=== PATIENT | female | born 1940 | race Caucasian/White ===

== ENCOUNTER 2022-02-15 13:14 | Emergency (ER) | payer MEDICARE, SELFPAY ==
[2022-02-15 13:17] VITALS: BP 174/76; PULSE 57; RESP 16; TEMP 36.7; O2SAT 97; BMI 45.8
--- NOTE | 2022-02-15 14:23 | CT_ITS ---
STUDY: CT BRAIN WITHOUT CONTRAST REASON FOR EXAM: Female, 81 years old. 3 month history of headaches. RADIATION DOSAGE (If Supplied By Facility): CTDIvol = ( 47.06 ) mGy, DLP = ( 890.33 ) mGycm TECHNIQUE: Transaxial CT imaging of the brain was performed without administration of intravenous contrast material. Individualized dose optimization techniques were used for this CT. COMPARISON: No relevant priors. FINDINGS: Normal soft tissue structures. There is hyperostosis frontalis internus. There is mild cerebral atrophy with widening of the extra-axial spaces and ventricular dilatation. There are areas of decreased attenuation within the white matter tracts of the supratentorial brain, consistent with microvascular disease changes. Normal basal ganglia and thalami. Normal brainstem. There is mild cerebellar atrophy. There is no intracranial hemorrhage. There are no findings of an acute ischemic infarction. Normal visualized paranasal sinuses. CT/Brain/Head without Contrast IMPRESSION: Chronic involutional changes of the brain. Electronically Signed: Hossein Martin MD at 15:25 EDT ,
--- NOTE | 2022-02-15 14:23 | EKG12_ITS ---
Test Reason : AGUILAR Blood Pressure : / mmHG Vent. Rate : 067 BPM Atrial Rate : 067 BPM P-R Int : 166 ms QRS Dur : 096 ms QT Int : 410 ms P-R-T Axes : -08 028 051 degrees QTc Int : 433 ms Normal sinus rhythm Nonspecific T wave abnormality Abnormal ECG Confirmed by ROWENA ANNE, OLAYINKA ([id number]), purchase request editor EBONIE ISSA ([id number]) on 02/17/2022 1:02:38 PM Referred By: Confirmed By:OLAYINKA GUAMAN MD
--- NOTE | 2022-02-15 14:25 | EX.ED.DYSGE1 ---
HPI History of Present Illness Chief Complaint: Headache Detail of Chief Complaint: Headache and falls Informant: patient Onset/Context/Timing Onset: Month(s) (3 months) Current Severity: Mild Maximum Severity: Moderate Narrative Narrative: Patient presents with a left posterior headache that is been constant for the past 3 months. She is been taking Tylenol without improvement. She has had couple episodes of falls where she states suddenly she just falls to the ground does not remember what happened for a few seconds. She does not believe she loses consciousness. Because family was concerned she called her doctor today who recommended she come to the emergency room. [facility] Medical History Atrial fibrillation Depression Hypertension Hypothyroidism Home Medications azithromycin 250 mg tablet 250 mg PO DAILY ##4 01/21/17 [Rx Last Taken Unknown] benazepril 10 mg tablet 10 mg PO DAILY 02/15/22 [History Last Taken Unknown] levothyroxine 150 mcg tablet 150 mcg PO DAILY 02/15/22 [History Last Taken Unknown] trazodone 50 mg tablet mg 02/15/22 [History Last Taken Unknown] warfarin 4 mg tablet mg 02/15/22 [History Last Taken Unknown] Allergy/AdvReac Type Severity Reaction Status Date / Time No Known Allergies Allergy Verified 01/21/17 22:33 Surgical History History of appendectomy History of cholecystectomy Social History Smoking Status: Never smoker ROS ROS ED Constitutional Constitutional ED: Denies chills or fever(s) Eyes Eyes: Denies change in vision or discharge from eye(s) ENT ENT ED: Denies discharge from eye(s), rhinorrhea or sore throat Cardiovascular Cardiovascular: Denies chest pain or palpitations Respiratory/Chest Respiratory/Chest: Denies cough or dyspnea Gastrointestinal Gastrointestinal: Denies abdominal pain, diarrhea, nausea or vomiting Genitourinary Genitourinary ED: Denies difficulty urinating or dysuria Musculoskeletal Musculoskeletal: Denies back pain or extremity pain Integumentary Denies Abrasions or rash Neurologic Neurologic: Reports headache(s); Denies weakness Psychiatric Psychiatric: Denies anxiety or depression Allergic/Immunologic Allergic/Immunologic ED: Denies lip swelling or urticaria EXAM Physical Exam Const Vital Signs: 02/15/22 13:17 Temperature 98.0 F Temperature Source Temporal Pulse Rate 57 L Respiratory Rate 16 Blood Pressure 174/76 H Blood Pressure Mean 108 Pulse Ox 97 Oxygen Delivery Method Room Air Positive well nourished and well developed General Appearance ED: well developed HEENT Reports normocephalic and head/scalp atraumatic Eyes PERRL and EOMs intact bilaterally Neck supple Chest Wall inspection of chest normal and palpation of chest normal Resp normal respiratory effort and clear to auscultation bilaterally Cardio regular rate and regular rhythm GI normal to inspection, nondistended, normoactive bowel sounds Palpation: soft Extremity normal to inspection Neuro oriented x3 and no sensory deficits noted Sensorium / Orientation: alert Motor Exam: strength 5/5 throughout Psych mental status grossly normal Skin no rashes or lesions noted MDM MDM MDM Narrative Medical decision making narrative: EKG and lab work obtained. Patient sent for CT scan of the head. Lab Data Attestation: I reviewed the patient's lab results. Labs: Laboratory Results - last 24 hr 02/15/22 02/15/22 02/15/22 14:35 14:35 14:35 WBC 6.9 RBC 4.47 Hgb 13.2 Hct 40.8 MCV 91.3 MCH 29.5 MCHC 32.4 RDW Std Deviation 46.2 H RDW Coeff of Henry 13.8 Plt Count 186 MPV 10.0 Immature Gran % (Auto) 0.100 Neut % (Auto) 50.8 Lymph % (Auto) 34.3 [place] % (Auto) 9.9 Eos % (Auto) 4.0 Baso % (Auto) 0.9 Absolute Neuts (auto) 3.5 Absolute Lymphs (auto) 2.38 Nucleated RBC % 0 PT 26.8 H INR 2.5 Sodium 143 Potassium 3.8 Chloride 109 H Carbon Dioxide 31.0 Anion Gap 3 L BUN 22 H Creatinine 0.76 Estim Creat Clear Calc 38.10 Est GFR (MDRD) Af Amer 94 Est GFR (MDRD) Non-Af 78 BUN/Creatinine Ratio 29.0 H Glucose 117 H Calcium 9.0 Radiography Diagnostic Testing: Clinical Impression(s) from Imaging Studies Brain CT 02/15/22 14:23 IMPRESSION: Chronic involutional changes of the brain. Electronically Signed: Hossein Martin MD at 15:25 EDT , EKG Initial EKG: Attestation: I personally reviewed and interpreted this EKG as follows: Interpretation: Sinus Rhythm (Sinus at 67 with no acute ischemia.) Treatment and Re-Evaluation Narrative: Lab work is unremarkable. INR is therapeutic at 2.5. CT scan of the head reveals chronic changes only. After CT reading is obtained patient is given a small dose of Toradol, Reglan, Benadryl. On reeval patient does report her symptoms are significantly improved Family is present with her at bedside. She will be discharged to home with follow-up. Return instructions were provided. Discharge Plan Triage Chief Complaint: Headache ED Provider: Idalia Mccann Dx/Rx/DC Orders Clinical Impression: Headache, Falls Instructions: ED Fall with Uncertain Cause, ED Headache Unspecified Prescriptions: No Action azithromycin 250 MG tablet 250 mg PO DAILY Qty: 4 0RF trazodone 50 mg tablet Label Comments: TAKE 1 TABLET BY MOUTH EVERYDAY AT BEDTIME warfarin 4 mg tablet levothyroxine 150 mcg tablet 150 mcg PO DAILY Label Comments: TAKE 1 TABLET BY MOUTH ONCE DAILY. TAKE ON EMPTY STOMACH. FOR THYROID. benazepril 10 mg tablet 10 mg PO DAILY Label Comments: TAKE 1 TABLET BY MOUTH EVERY DAY Primary Care Provider: Cory Santacruz Referrals: Alyce Myers MD [Med Staff - Active Staff] - Cory Santacruz MD [Primary Care Provider] - As soon as possible Disposition Disposition: Home, Self Care
[2022-02-15 14:43] LABS: Absolute Lymphocyte Count 2.38 X10^3/uL (0.83-4.51); Absolute Neutrophil Count 3.5 X10^3/uL (2.0-7.7); Basophil# 0.06 X10^3/uL; Basophil% 0.9 % (0-1); Eosinophil# 0.28 X10^3/uL; Hematocrit 40.8 % (37-47); Hemoglobin 13.2 g/dL (12.0-15.0); Lymphocyte # 2.38 X10^3/ul (0.83-4.51); Lymphocyte % 34.3 % (19-41); Mean Corp Hgb Conc 32.4 g/dL (32-36); Mean Corpuscular Hgb 29.5 pg (27.0-32.0); Mean Corpuscular Volume 91.3 fL (81-99); Monocyte# 0.69 X10^3/uL; Monocyte% 9.9 % (0-10); NRBC Flagged by Analyzer 0 % (0-5); Neutrophil # 3.52 X10^3/uL (2.7-7.7); Neutrophil % 50.8 % (47-70); Platelet Count 186 K/mm3 (150-450); RBC Distribution Width CV 13.8 % (11.6-14.6); RBC Distribution Width SD 46.2 fl (35.1-43.9); Red Blood Count 4.47 M/mm3 (4.2-5.4); White Blood Count 6.9 K/mm3 (4.4-11.0)
[2022-02-15 14:50] LABS: International Normalized Ratio 2.5; Prothrombin Time (Protime)PT. 26.8 SECONDS (11.7-14.9)
[2022-02-15 14:53] LABS: Anion Gap 3 (5-15); BUN 22 mg/dL (7-18); Chloride 109 mmol/L (98-107); Creatinine, Serum 0.76 mg/dL (0.55-1.02); EST Glomerular Filtration Rate 78 mL/min (>60); Est Glom Filt Rate - Afr Amer 94 mL/min (>60); Glucose 117 mg/dL (74-106); Potassium 3.8 mmol/L (3.5-5.1); Sodium Level 143 mmol/L (136-145)
[2022-02-15] MEDS: Metoclopramide 10 MG/2 ML Vial 5 MG IV (15:26)
[2022-02-15] MEDS: DiphenhydrAMINE 50 MG/ML Syringe 12.5 MG IV (15:27)
[2022-02-15] MEDS: Ketorolac 15 MG/ML Vial IV (15:27)
[2022-02-15 16:43] VITALS: BP 154/58; PULSE 60; RESP 18; O2SAT 100
== END 2022-02-15 16:52 | disposition home or self-care (01) ==
PROVIDERS: Emergency Provider Emergency Medicine; PCP Family Medicine; Visit Provider Emergency Medicine
DX: R51.9 Headache, unspecified (principal); I48.91 Unspecified atrial fibrillation; I10 Essential (primary) hypertension; R29.6 Repeated falls; Z79.01 Long term (current) use of anticoagulants
CPT/HCPCS: 70450; 80048; 85025; 85610; 93005; 96374; 96375; 99283; A4216

== ENCOUNTER 2022-05-18 09:25 | Inpatient (IN) | payer MEDICARE, SELFPAY ==
[2022-05-18] VITALS (16 sets, daily range): BP systolic 99–155; BP diastolic 64–127; PULSE 85–158; RESP 18–30; TEMP 36.6–37.8; O2SAT 90–95; BMI 45.8; BMI 43.9
--- NOTE | 2022-05-18 09:31 | EKG12_ITS ---
Test Reason : SOB Blood Pressure : / mmHG Vent. Rate : 146 BPM Atrial Rate : 000 BPM P-R Int : 000 ms QRS Dur : 096 ms QT Int : 272 ms P-R-T Axes : 000 035 243 degrees QTc Int : 423 ms Atrial fibrillation with rapid ventricular response with premature ventricular or aberrantly conducte d complexes Nonspecific ST and T wave abnormality Abnormal ECG Confirmed by RAZA ANNE, EDEN ([id number]), videotape editor EBONIE ISSA ([id number]) on 05/23/2022 12:16:27 PM Referred By: Confirmed By:EDEN PERSON MD
--- NOTE | 2022-05-18 09:37 | ED.VIS.DYS ---
HPI History of Present Illness Chief Complaint: Shortness of Breath Detail of Chief Complaint: Diagnosed with COVID May 09, complain of increased shortness of Informant: patient and EMS Onset/Context/Timing Onset: Days Context: gradual Timing: Continuous and Waxes and wanes Quality: Positive for Dyspnea on exertion and Orthopnea (Patient has slept in a lazy boy for 3 years); Negative for PND or Wheezing Current Severity: Mild Maximum Severity: Moderate Worsened by: Exertion and Lying flat Relieved by: Nothing Associated Symptoms cough; Negative for rhinorrhea, post nasal drip, ear pain, fever, sore throat, subjective, chills, sweats, clear sputum, white sputum, yellow sputum or green sputum Chest Pain: Positive for Intermittent and Sharp (Midsternal with no exacerbating, precipitating alleviating factors) Narrative PE Risk Factors: Negative for Cancer, OCP + Smoking + > 35, Prior DVT or PE, Recent immobilization, Recent surgery or Recent travel Prior similar symptoms: Yes Recent Illness/Hospitalization: Yes (COVID-19 infection) PFSH PFS Medical History (Updated 05/18/22 @ 11:[address] Jaden Humphreys MD) Atrial fibrillation COVID-19 virus infection Depression Hypertension Hypothyroidism Home Medications benazepril 10 mg tablet 10 mg PO DAILY 02/15/22 [History Last Taken 05/15/22] levothyroxine 150 mcg tablet 150 mcg PO DAILY THYROID 02/15/22 [History Last Taken 05/15/22] trazodone 50 mg tablet 50 mg PO QHS SLEEP 02/15/22 [History Last Taken 05/16/22] warfarin 4 mg tablet 4 mg PO DAILY AFIB 02/15/22 [History Last Taken 05/16/22] citalopram 20 mg tablet 20 mg PO DAILY DEPRESSION 05/18/22 [History Last Taken 05/15/22] furosemide 20 mg tablet 20 mg PO TUTHSA 05/18/22 [History Last Taken 05/04/22] metoprolol tartrate 25 mg tablet 12.5 mg PO BID AFIB 05/18/22 [History Last Taken 05/15/22] milk thistle 500 mg capsule 500 mg PO DAILY SUPPLEMENT 05/18/22 [History Last Taken 05/04/22] quercetin 500 mg capsule 500 mg PO DAILY SUPPLEMENT 05/18/22 [History Last Taken 12/28/22] Allergy/AdvReac Type Severity Reaction Status Date / Time No Known Allergies Allergy Verified 05/18/22 09:31 Surgical History History of appendectomy History of cholecystectomy Social History (Updated 05/18/22 @ 09:[address] Jaden Humphreys MD) household members: none Smoking Status: Former smoker substance use type: does not use ROS ROS ED Constitutional Constitutional ED: Denies chills, fever(s), sweats or weight loss Eyes Eyes: Denies blurry vision, change in vision or diplopia ENT ENT ED: Denies ear pain, rhinorrhea or sore throat Cardiovascular Cardiovascular: Reports chest pain and orthopnea; Denies palpitations, paroxysmal nocturnal dyspnea or racing heartbeat Respiratory/Chest Respiratory/Chest: Reports cough, dyspnea, dyspnea on exertion and orthopnea; Denies paroxysmal nocturnal dyspnea or sputum Gastrointestinal Gastrointestinal: Reports other Details: Patient denies maroon-colored stool or bright red blood per rectum. ; Denies abdominal pain, diarrhea, melena, nausea or vomiting Genitourinary Genitourinary ED: Denies dysuria, hematuria or urinary frequency Musculoskeletal Musculoskeletal: Denies arthralgias, back pain or myalgias Integumentary Denies Abrasions or rash Neurologic Neurologic: Reports weakness; Denies headache(s) or paresthesias Endocrine Endocrinology: Denies cold intolerance or heat intolerance Hematologic/Lymphatic Hematologic/Lymphatic: Reports easy bruising; Denies easy bleeding or lymphadenopathy EXAM Physical Exam Const Vital Signs: 05/18/22 09:26 05/18/22 09:30 05/18/22 09:30 Temperature 99.7 F H 99.7 F H Temperature Source Oral Oral Pulse Rate 146 H 158 H Respiratory Rate 24 H 24 H Respiratory Effort Respiratory Pattern Blood Pressure 155/127 H 155/127 H Blood Pressure Mean 136 136 Pulse Ox 94 95 Oxygen Delivery Method Room Air Room Air 05/18/22 09:35 05/18/22 09:49 05/18/22 09:57 Temperature Temperature Source Pulse Rate 155 H Respiratory Rate 30 H Respiratory Effort Short of Breath Respiratory Pattern Tachypnea Blood Pressure 132/82 H 122/79 H Blood Pressure Mean 98 93 Pulse Ox 94 Oxygen Delivery Method Room Air Room Air 05/18/22 10:30 05/18/22 11:00 Temperature 98 F 99 F Temperature Source Temporal Oral Pulse Rate 115 H 128 H Respiratory Rate 20 H 20 H Respiratory Effort Respiratory Pattern Blood Pressure 109/80 99/76 Blood Pressure Mean 89 83 Pulse Ox 94 93 Oxygen Delivery Method Room Air Room Air Positive well nourished, well developed and obese Constitutional Narrative: Patient is slightly tachypneic. She appears ill but not toxic. General Appearance ED: well developed and pallor Nutritional Appearance: obese HEENT Reports dry mucous membranes HEENT Narrative: Ears normal. TMs normal. Nares patent. There is no drainage. Uvula midline. No deviation with protrusion. No erythema or exudate of the posterior pharynx. There is no dysphonia. atraumatic; Negative for tenderness Mouth ED: Yes dry mucous membranes Mouth: dry mucous membranes Eyes PERRL and EOMs intact bilaterally General Eye ED: Yes pale conjunctiva; Negative for scleral icterus Neck no lymphadenopathy, supple, no meningeal signs and no JVD Neck Narrative: Trachea is midline. There is no inspiratory expiratory stridor. Resp No normal respiratory effort and No clear to auscultation bilaterally Auscultation: rales bilateral base Cardio no murmurs Rate: tachycardic Rhythm: abnormal rhythm irregularly irregular (Monitor reveals an occasional wide-complex.) GI non-tender, non-distended and no masses Auscultation: hypoactive bowel sounds Palpation: soft Back/Spine no CVA tenderness General Back: Negative for tenderness Extremity Negative for normal to inspection Extremity Narrative: Well-healed surgical scars noted due to prior fracture. Patient does have edema of her feet and legs. This is pitting edema. Neuro oriented x3, CN's II-XII intact bilaterally and no sensory deficits noted Lizz Coma Scale: document GCS findings Spontaneous Obeys Commands Oriented 15 Sensorium / Orientation: alert Speech: speech normal Psych mental status grossly normal Skin no wounds and skin turgor normal General Skin Exam: pallor; Negative for jaundice Lesions: no lesions Rashes: no rashes Trauma: Negative for abrasion MDM MDM MDM Narrative Medical decision making narrative: Patient presents with dyspnea. Initial thought was dyspnea due to COVID versus COVID-pneumonia and need to consider PE. Patient is on Coumadin. Will assess PT/INR. Of note monitor reveals atrial fibrillation with RVR and either a variant beats or ventricular ectopic beats. This may be the cause of her dyspnea. Also need to rule out anemia since patient appears pale conjunctive is pale. EKG was obtained to assess for cardiac ischemia. Troponin was added since she complained of chest pain which is atypical however the dyspnea may be her anginal equivalent. Basic metabolic panel was obtained to assess renal function in the event that meds are needed and require dose adjustment. Since patient has hypothyroidism TSH was obtained to evaluate for exacerbation of hypothyroidism. In the differentia, one needs to consider CHF, cardiac ischemia, dyspnea due to COVID, COVID-pneumonia since there are rales this may also be dyspnea due to A. fib with RVR. Patient's last ER visit was February. Prior visit was 2016. Cardiovascular reports are 4 prior EKGs only. There are no office visits available. Since patient is chronically in A. fib and hemodynamically stable she received IV metoprolol for rate control since she is presently on metoprolol. She reports compliance with her medication. Patient's INR is subtherapeutic at 1.8. Patient was queried again regarding compliance. She states she took none of her morning meds. Because of her complaint of dyspnea with pedal edema and in my opinion cephalization even though radiologist read x-ray is negative a BNP was added. Troponin is elevated 64. Will obtain 2-hour troponin. Suspect the troponin is elevated due to A. fib RVR and heart strain versus true cardiac ischemia. A second dose of IV metoprolol was ordered since patient still has a rapid rate. At approximately 1013 nurse informing the patient is now complaining abdominal pain. Patient was reexamined. Patient has diffuse abdominal pain with guarding. Will obtain CT of the abdomen to evaluate this since patient has an elevated white count at 19.7 thousand with shift. I was informed at approximately 1041 that patient triggered sepsis alert. Since there is no identifiable source and there are many possibilities as the cause of her elevated white count at the time of this addendum 1044 blood cultures and antibiotics were not started. At 1120 urine this was reviewed and is consistent with infection. For this reason blood cultures, lactate urine culture and antibiotics were ordered. The axial view of the CAT scan was reviewed. There is a cystic lesion noted left kidney. There is evidence of renal calculi. There is no evidence of hydroureter or ureterolithiasis. There is no evidence of pneumoperitoneum. There is no obvious inflammatory changes of the colon. Awaiting formal read by radiologist, and will contact hospitalist for admission. Patient has severe sepsis with acute endorgan dysfunction. Tiki was 0.76 and is now 2.22. I was informed by nursing staff that the BNP will not be available for interpretation since the lab is having difficulty and machine is not functioning proper. Lab Data Attestation: I reviewed the patient's lab results. Lab results narrative: PT/INR subtherapeutic. White count is elevated 19.7 thousand. There is a shift with no bandemia. This could be due to COVID versus other causes. Electrolyte panels remarkable for mild hyponatremia. Patient has evidence of acute kidney injury with elevation of BUN and creatinine of 64 and 2.22 compared to prior labs. Patient does have an increased BUN to creatinine ratio which raises concern for dehydration. Also need to consider GI bleed. Patient's hemoglobin is normal suspect this is due to dehydration. TSH is elevated 8.29. She probably will need her levothyroxine dose increased. Glucose is elevated to 16 with a normal CO2 and anion gap. Review of prior records and meds would indicate this is new onset diabetes since she has not had anything to eat. Labs: Laboratory Results - last 24 hr 05/18/22 05/18/22 05/18/22 09:32 09:32 09:32 WBC 19.7 H RBC 4.75 Hgb 14.3 Hct 41.7 MCV 87.8 MCH 30.1 MCHC 34.3 RDW Std Deviation 44.6 H RDW Coeff of Henry 13.7 Plt Count 168 MPV 10.8 Immature Gran % (Auto) 0.500 Neut % (Auto) 85.9 H Lymph % (Auto) 5.1 L [place] % (Auto) 8.1 Eos % (Auto) 0.1 Baso % (Auto) 0.3 Absolute Neuts (auto) 17.0 H Absolute Lymphs (auto) 1.00 Nucleated RBC % 0 [address] Review May foll Microcytosis 19.7 PT 20.6 H INR 1.8 Sodium 132 L Potassium 3.5 Chloride 99 Carbon Dioxide 24.0 Anion Gap 9 BUN 64 H Creatinine 2.22 H Estim Creat Clear Calc 16.87 Est GFR (MDRD) Af Amer 27 L Est GFR (MDRD) Non-Af 23 L BUN/Creatinine Ratio 28.8 H Glucose 216 H Calcium 9.1 Troponin I High Sens 64 H TSH 8.29 H Urine Color Urine Clarity Urine pH Ur Specific [place] Urine Protein Urine Glucose (UA) Urine Ketones Urine Occult Blood Urine Nitrite Urine Bilirubin Urine Urobilinogen Ur Leukocyte Esterase Urine RBC Urine WBC Ur Squamous Epith Cells Amorphous Sediment Urine Bacteria Urine Mucus 05/18/22 10:45 WBC RBC Hgb Hct MCV MCH MCHC RDW Std Deviation RDW Coeff of Henry Plt Count MPV Immature Gran % (Auto) Neut % (Auto) Lymph % (Auto) [place] % (Auto) Eos % (Auto) Baso % (Auto) Absolute Neuts (auto) Absolute Lymphs (auto) Nucleated RBC % Diff Path Review Microcytosis PT INR Sodium Potassium Chloride Carbon Dioxide Anion Gap BUN Creatinine Estim Creat Clear Calc Est GFR (MDRD) Af Amer Est GFR (MDRD) Non-Af BUN/Creatinine Ratio Glucose Calcium Troponin I High Sens TSH Urine Color Yellow Urine Clarity Cloudy Urine pH 5.0 Ur Specific [place] 1.010 Urine Protein 100 H Urine Glucose (UA) Normal Urine Ketones Negative Urine Occult Blood 250 H Urine Nitrite Negative Urine Bilirubin Negative Urine Urobilinogen 1 H Ur Leukocyte Esterase 500 H Urine RBC 10-25 SEEN Urine WBC 25-50 SEEN Ur Squamous Epith Cells 0-5 SEEN Amorphous Sediment 2+ Urine Bacteria 4+ Urine Mucus 0 SEEN Radiography Chest X-Ray - ED: Read by ED Physician (Patient's x-ray is slightly rotated. Borderline cardiomegaly. There is cephalization. There is no curly B-lines. There is no effusion. There is no infiltrate. Osseous structures are unremarkable. This was independently reviewed and interpreted by me at 0954.) Diagnostic Testing: Clinical Impression(s) from Imaging Studies Chest X-Ray 05/18/22 09:45 IMPRESSION: No acute abnormality is seen. Electronically Signed: Hossein Martin MD at 10:02 EST , Abdomen/Pelvis CT 05/18/22 10:20 IMPRESSION: 1. 8 mm partially obstructing stone in the left proximal ureter and borderline left hydronephrosis. 2. 4 mm and 2 mm nonobstructing calculi in the left lower renal infundibula. 3. 4.8 cm hypodense cyst in the left anterior renal parenchyma protruding into the left anterior perirenal space. No follow-up is needed. 4. Mild right renal atrophy when compared to the left kidney. 5. Right periumbilical hernia containing only omental fat. Electronically Signed: Moy Joseph MD at 11:49 EST , Rhythm Strip Rhythm Strip: A-fib (Rate of 148 with wide complexes which may represent aberrant beats versus premature ventricular beats) Rate: 148 EKG Initial EKG: Interpretation: Atrial Fibrillation (Ventricular rate is 146. Cures duration is 96 ms. QT duration is 272 ms. [place] is normal. There are wide complexes which may represent premature ventricular beat versus aberrantly conducted complexes. There is an ossific ST-T wave changes which in all likelihood is rate dependent.) Prior: Changed (From February 2022. Patient was in a normal sinus rhythm.) Critical Care Time Critical Care Time: Yes Critical care time (excluding procedures): 30-74 minutes (32), Including time spent: (History, physical, documentation, review of prior records, interpretation of laboratory results and imaging and initiation of therapy for A. 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
[2022-05-18 09:40] LABS: Basophil# 0.05 X10^3/uL; Basophil% 0.3 % (0-1); Eosinophil# 0.02 X10^3/uL; Eosinophils% 0.1 % (0-5); Hematocrit 41.7 % (37-47); Hemoglobin 14.3 g/dL (12.0-15.0); Lymphocyte % 5.1 % (19-41); Mean Corp Hgb Conc 34.3 g/dL (32-36); Mean Corpuscular Hgb 30.1 pg (27.0-32.0); Mean Corpuscular Volume 87.8 fL (81-99); Mean Platelet Vol. 10.8 fl (6.2-12.0); Monocyte# 1.59 X10^3/uL; Monocyte% 8.1 % (0-10); NRBC Flagged by Analyzer 0 % (0-5); Neutrophil # 16.95 X10^3/uL (2.7-7.7); Neutrophil % 85.9 % (47-70); POSITIVE DIFFERENTIAL YES; Platelet Count 168 K/mm3 (150-450); RBC Distribution Width CV 13.7 % (11.6-14.6); RBC Distribution Width SD 44.6 fl (35.1-43.9); Red Blood Count 4.75 M/mm3 (4.2-5.4); White Blood Count 19.7 K/mm3 (4.4-11.0)
--- NOTE | 2022-05-18 09:45 | RAD_ITS ---
STUDY: X-RAY CHEST REASON FOR EXAM: Female, 82 years old. Dyspnea Covid 10 days ago TECHNIQUE: PA and lateral views of the chest. COMPARISON: None. FINDINGS: The lungs are clear and expanded. There is no demonstrated pleural abnormality. Borderline cardiomegaly. Normal mediastinum and allie. Normal visualized pulmonary arteries. There is atherosclerotic tortuosity of the aortic arch and descending thoracic aorta. Normal visualized thoracic spine. Normal visualized ribs, clavicles, and shoulders. There is no demonstrated abnormality of the visualized soft tissue structures of the upper abdomen. RAD/Chest PA and Lateral IMPRESSION: No acute abnormality is seen. Electronically Signed: Hossein Martin MD at 10:02 [facility] ,
[2022-05-18 09:50] LABS: International Normalized Ratio 1.8; Prothrombin Time (Protime)PT. 20.6 SECONDS (11.7-14.9)
[2022-05-18] MEDS: Metoprolol Tartrate 5 MG/5 ML Vial IV ×3 (09:53→18:57)
[2022-05-18 10:02] LABS: Differential Indicated SCAN CRITERIA MET
[2022-05-18 10:03] LABS: Anion Gap 9 (5-15); BUN 64 mg/dL (7-18); BUN/Creat Ratio 28.8 RATIO (10-20); Calcium,Total 9.1 mg/dL (8.5-10.1); Chloride 99 mmol/L (98-107); Creatinine, Serum 2.22 mg/dL (0.55-1.02); EST Glomerular Filtration Rate 23 mL/min (>60); Est Glom Filt Rate - Afr Amer 27 mL/min (>60); Estimated Creatinine Clearance 16.87 ml/min; Glucose 216 mg/dL (74-106); Microcytosis 19.7; Potassium 3.5 mmol/L (3.5-5.1); Sodium Level 132 mmol/L (136-145); Thyroid Stim Hormone (TSH) 8.29 uIU/mL (0.358-3.74); Troponin-I HS 64 pg/mL (3.0-54.0)
[2022-05-18] MEDS: Ondansetron 4 MG/2 ML Vial IV (10:13)
--- NOTE | 2022-05-18 10:20 | CT_ITS ---
EXAM: CT ABDOMEN AND PELVIS WITHOUT INTRAVENOUS CONTRAST CLINICAL INDICATION: Abdominal pain, elevated white count and acute kidney injury. TECHNIQUE: Helically acquired images were obtained of the abdomen and pelvis without intravenous contrast. This CT exam was performed using one or more of the following dose reduction techniques: automated exposure control, adjustment of the mA and/or kV according to patient size, and/or use of iterative reconstruction technique. This report was created using [employer] report generation technology. RADIATION DOSE: CTDIvol = 24.00 mGy, DLP = 1211.01 mGy-cm COMPARISON: None. FINDINGS: LOWER THORAX: Unremarkable. Lung bases are clear. No cardiomegaly. No significant pericardial effusion. ABDOMEN: LIVER: Mild diffuse fatty infiltration of the liver. Micronodularity of the liver surface is worrisome for cirrhosis. GALLBLADDER AND BILE DUCTS: Unremarkable. No calcified gallstones. No gallbladder distention or wall edema. No intra- or extrahepatic biliary ductal dilation. PANCREAS: Unremarkable. No focal cystic mass. SPLEEN: Unremarkable. Normal size without focal cystic or solid mass. ADRENALS: Unremarkable. No nodules. KIDNEYS AND URETERS: 4.8 cm hypodense cysts in the left anterior renal parenchyma protruding into the left anterior perirenal space. 8 mm partially obstructing stone in the left proximal ureter with borderline hydronephrosis. 4 mm and 2 mm nonobstructing calculi in the left lower renal infundibula. No stones or hydronephrosis in the right kidney. Mild right renal atrophy when compared to the left. STOMACH AND BOWEL: LAP-BAND surgery of the stomach. No stomach or bowel distention. No focal inflammatory change. PELVIS: APPENDIX: Normal. BLADDER: Unremarkable. REPRODUCTIVE: Unremarkable as visualized. No mass. ABDOMEN and PELVIS: INTRAPERITONEAL SPACE: Unremarkable. No ascites or other fluid collection. No free air. BONES/JOINTS: Pronounced degenerative disc space height narrowing at L1-L2, L2-L3 and L5-S1 disc space levels. Mild L4-L5 disc space height narrowing. Moderately pronounced stenosis of the bilateral L5-S1 intervertebral neural foramina. Mild old anterior wedge compression fracture of the upper T11 vertebral body. No suspicious lytic or blastic abnormality. SOFT TISSUES: Right periumbilical hernia containing only omental fat. VASCULATURE: Unremarkable. Abdominal aorta is non-dilated. LYMPH NODES: Unremarkable. No enlarged lymph nodes. CT/Abdomen/Pelvis without Cont IMPRESSION: 1. 8 mm partially obstructing stone in the left proximal ureter and borderline left hydronephrosis. 2. 4 mm and 2 mm nonobstructing calculi in the left lower renal infundibula. 3. 4.8 cm hypodense cyst in the left anterior renal parenchyma protruding into the left anterior perirenal space. No follow-up is needed. 4. Mild right renal atrophy when compared to the left kidney. 5. Right periumbilical hernia containing only omental fat. Electronically Signed: Moy Joseph MD at 11:49 EST ,
[2022-05-18] MEDS: Morphine 4 MG/ML Syringe IV (10:31)
[2022-05-18] MEDS: Enoxaparin 120 MG/0.8 ML Syringe SC (10:35)
--- NOTE | 2022-05-18 10:41 | ED.RN ---
DR LAWSON NOTIFIED OF SEPSIS ALERT. NO NEW ORDERS AT THIS TIME.
[2022-05-18 10:51] LABS: Mucous, Urine 0 SEEN /hpf (<or=2+)
[2022-05-18 10:55] LABS: Color, Urine Yellow (Yellow); Glucose, Dipstick Normal (Normal); Ketone-Dipstick Negative (Negative); Leukocyte Esterase-Dipstick 500 /ul (Negative); Nitrite-Dipstick Negative (Negative); Occult Blood-Urine 250 /ul (Negative); Protein-Dipstick 100 mg/dl (Negative); Urine Bilirubin Dipstick Negative (Negative); Urine Clarity Cloudy (Clear); Urine Urobilinogen 1 mg/dl (Normal)
[2022-05-18 11:04] LABS: Amorphous Sediment 2+; Bacteria 4+ /hpf (None Seen)
[2022-05-18 11:05] LABS: Red Blood Cells-Urine 10-25 SEEN /hpf (0-5); White Blood Cells 25-50 SEEN /hpf (0-5)
[2022-05-18 11:06] LABS: Squamous Epithelial Cells - UA 0-5 SEEN /hpf (5-10)
--- NOTE | 2022-05-18 11:34 | ED.RN ---
PHYSICIAN CALLING SEPSIS WITH REMAINING BLOOD WORK/URINE. CULTURES OBTAINED/LACTIC
--- NOTE | 2022-05-18 11:49 | NURSING ---
DR SATISH LAWSON
--- NOTE | 2022-05-18 11:56 | NURSING ---
PCU SATISH SEVERE SEPSIS WITH ENDORGAN DYSFUNCTION, UTI, AFIB RVR
--- NOTE | 2022-05-18 11:57 | HP.PCM.HOS_ITS ---
HPI - General General Date of Admission: 05/18/22 Date of Service: 05/18/22 Chief Complaint: Multiple complaints, shortness of breath progressive worsening for 1 week along with chest pain for few days, bilateral lower quadrant abdominal pain, weakness. HPI Narrative NITISH MOLINA, is a 82 F came to ED for multiple complaints. She had COVID infection, diagnosed positive on 05/09/2022. For last 10 days she complains of acute on chronic shortness of breath mainly on exertion but has progressed to shortness of breath at rest along with left sided chest pain. She has been sleeping on [place] for 3 years and has chronic shortness of breath. She describes chest pain as dull ache, constant with no change with activity, or precipitating, aggravating or relieving factor. Last 2 days he started having palpitation. He says that she also has bilateral lower quadrant pain more on the left. In ED, she was found to be in A. fib with RVR. She was tachycardic, blood pressure elevated but went down after giving IV metoprolol. CT abdomen pelvis showed left ureteric nonobstructive calculi and left renal infundibula with mild hydronephrosis. Urologist consulted. UA positive for 4+ bacteria, WBC 25?50 cells, RBC 10-25 cells LE 500, nitrite negative. Patient has leukocytosis and is started on IV ceftriaxone and admitted. Patient is positive smoking history more than 45 years. On warfarin for chronic A. fib. Patient denies cough, URI symptoms but had mild fever and headache for last 3 days. [facility] Medical History Atrial fibrillation COVID-19 virus infection Depression Hypertension Hypothyroidism Home Medications benazepril 10 mg tablet 10 mg PO DAILY 02/15/22 [History Last Taken 05/15/22] levothyroxine 150 mcg tablet 150 mcg PO DAILY THYROID 02/15/22 [History Last Taken 05/15/22] trazodone 50 mg tablet 50 mg PO QHS SLEEP 02/15/22 [History Last Taken 05/16/22] warfarin 4 mg tablet 4 mg PO DAILY AFIB 02/15/22 [History Last Taken 05/16/22] citalopram 20 mg tablet 20 mg PO DAILY DEPRESSION 05/18/22 [History Last Taken 05/15/22] furosemide 20 mg tablet 20 mg PO TUTHSA 05/18/22 [History Last Taken 05/04/22] metoprolol tartrate 25 mg tablet 12.5 mg PO BID AFIB 05/18/22 [History Last Taken 05/15/22] milk thistle 500 mg capsule 500 mg PO DAILY SUPPLEMENT 05/18/22 [History Last Taken 05/04/22] quercetin 500 mg capsule 500 mg PO DAILY SUPPLEMENT 05/18/22 [History Last Taken 05/04/22] Allergy/AdvReac Type Severity Reaction Status Date / Time No Known Allergies Allergy Verified 05/18/22 09:31 Surgical History History of appendectomy History of cholecystectomy Social History household members: none Smoking Status: Former smoker substance use type: does not use ROS ROS Narrative Constitutional: Reports fatigue and weakness. Fever as described in HPI HEENT: Denies URI symptoms. Reports systems reviewed and no addt'l complaints, except as documented Respiratory/Chest: As described in HPI Gastrointestinal: Mild nausea. Anorexia. Denies GI bleed denies coffee ground emesis, hematemesis or vomiting Genitourinary: Denies burning urination or new urinary tract symptoms Musculoskeletal: Chronic joint pain and limited range of motion. Limited mobility Neurologic: Denies seizure-like activity. No focal strokelike symptoms skin: No ulcer. No rash Endocrinology: Reports systems reviewed and no addt'l complaints, except as documented Hematologic/Lymphatic: Reports systems reviewed and no addt'l complaints, except as documented Rest 14 ROS are negative except as mentioned in HPI Vital Signs Vital Signs Vital Signs: 05/18/22 09:26 05/18/22 09:30 05/18/22 09:30 Temperature 99.7 F H 99.7 F H Temperature Source Oral Oral Pulse Rate 146 H 158 H Respiratory Rate 24 H 24 H Respiratory Effort Respiratory Pattern Blood Pressure 155/127 H 155/127 H Blood Pressure Mean 136 136 Pulse Ox 94 95 Oxygen Delivery Method Room Air Room Air 05/18/22 09:35 05/18/22 09:49 05/18/22 09:57 Temperature Temperature Source Pulse Rate 155 H Respiratory Rate 30 H Respiratory Effort Short of Breath Respiratory Pattern Tachypnea Blood Pressure 132/82 H 122/79 H Blood Pressure Mean 98 93 Pulse Ox 94 Oxygen Delivery Method Room Air Room Air 05/18/22 10:30 05/18/22 11:00 Temperature 98 F 99 F Temperature Source Temporal Oral Pulse Rate 115 H 128 H Respiratory Rate 20 H 20 H Respiratory Effort Respiratory Pattern Blood Pressure 109/80 99/76 Blood Pressure Mean 89 83 Pulse Ox 94 93 Oxygen Delivery Method Room Air Room Air Weight Weight: 267 lb 6.731 oz Body Mass Index (BMI) 45.8 Physical Exam Narrative Physical exam General: Alert, Oriented x3, Cooperative, morbid obesity BMI 45.9 kg/m? HEENT: Atraumatic, PERRLA, EOMI, Normocephalic Oral: Oral mucosa dry. No Gingival or Mucosal Lesions/ Ulcerations Neck: Supple, No JVD, Negative Carotid Bruits Lungs: Air entry diminished in bilateral lung bases. No crepitation/rhonchi. No hypoxia Cardiovascular: A. fib with RVR, Normal S1, Normal S2, No murmurs Abdomen: Fat pendulous abdomen. Soft, tenderness present over left lower quadrant. Bowel Sounds Present, nondistended : No renal angle tenderness. No suprapubic tenderness. Extremities: Mild bilateral chronic ankle edema, Capillary Refill Less than 3 Seconds Skin: No rashes, No breakdown Musculoskeletal: No Tenderness to Palpation of Joints or Extremities. ROM restricted muscle strength 4+/5 at knees and hip joints Neurological: Cranial nerves II-XII grossly intact, DTR 2+/4 and Symmetrical, Neuro grossly intact Psych/Mental Status: Flat affect. Results Lab / Micro Data Result Diagrams: 05/18/22 09:32 05/18/22 09:32 Labs: Laboratory Results - last 24 hr 05/18/22 09:32: WBC 19.7 H, RBC 4.75, Hgb 14.3, Hct 41.7, MCV 87.8, MCH 30.1, MCHC 34.3, RDW Std Deviation 44.6 H, RDW Coeff of Henry 13.7, Plt Count 168, MPV 10.8, Immature Gran % (Auto) 0.500, Neut % (Auto) 85.9 H, Lymph % (Auto) 5.1 L, [place] % (Auto) 8.1, Eos % (Auto) 0.1, Baso % (Auto) 0.3, Absolute Neuts (auto) 17.0 H, Absolute Lymphs (auto) 1.00, Nucleated RBC % 0, Diff Path Review May foll, Microcytosis 19.7 05/18/22 09:32: PT 20.6 H, INR 1.8 05/18/22 09:32: Sodium 132 L, Potassium 3.5, Chloride 99, Carbon Dioxide 24.0, Anion Gap 9, BUN 64 H, Creatinine 2.22 H, Estim Creat Clear Calc 16.87, Est GFR (MDRD) Af Amer 27 L, Est GFR (MDRD) Non-Af 23 L, BUN/Creatinine Ratio 28.8 H, Glucose 216 H, Calcium 9.1, Troponin I High Sens 64 H, TSH 8.29 H 05/18/22 10:45: Urine Color Yellow, Urine Clarity Cloudy, Urine pH 5.0, Ur Specific [place] 1.010, Urine Protein 100 H, Urine Glucose (UA) Normal, Urine Ketones Negative, Urine Occult Blood 250 H, Urine Nitrite Negative, Urine Bilirubin Negative, Urine Urobilinogen 1 H, Ur Leukocyte Esterase 500 H, Urine RBC 10-25 SEEN, Urine WBC 25-50 SEEN, Ur Squamous Epith Cells 0-5 SEEN, Amorphous Sediment 2+, Urine Bacteria 4+, Urine Mucus 0 SEEN Rhythm Strip Rhythm Strip: A-fib (Rate of 148 with wide complexes which may represent aberrant beats versus premature ventricular beats) Rate: 148 Radiology Impression Chest X-Ray 05/18/22 09:45 IMPRESSION: No acute abnormality is seen. Electronically Signed: Hossein Martin MD at 10:02 EST , Abdomen/Pelvis CT 05/18/22 10:20 IMPRESSION: 1. 8 mm partially obstructing stone in the left proximal ureter and borderline left hydronephrosis. 2. 4 mm and 2 mm nonobstructing calculi in the left lower renal infundibula. 3. 4.8 cm hypodense cyst in the left anterior renal parenchyma protruding into the left anterior perirenal space. No follow-up is needed. 4. Mild right renal atrophy when compared to the left kidney. 5. Right periumbilical hernia containing only omental fat. Electronically Signed: Moy Joseph MD at 11:49 EST , Assessment & Plan Assessment/Plan (1) Atrial fibrillation with rapid ventricular response: (2) Left ureteral calculus: PLAN: Plan This is a 82-year-old female is being admitted to PCU for mild shortness of breath, left-sided chest pain, abdominal pain with A. fib with RVR 1. UTI most likely due to left ureteric calculi and borderline hydronephrosis: Patient is being admitted to PCU. CT abdomen reviewed with the urologist Dr. Gutierrez. Patient has 8 mm partially obstructing stone in left proximal ureter with borderline left hydronephrosis. 4 mm tubular nonobstructing calculi in left lower renal infundibula. Mild right renal atrophy. Patient has leukocytosis. Patient does not look toxic but has low-grade fever 99.7 Fahrenheit.Patient is not hypotensive but blood pressure went down after giving IV metoprolol 5 mg x 2. Patient has leukocytosis but lactic acid normal. Liver chemistry pending. Overall I have very low probability for sepsis. IV fluid R jairo lactate 1 L ordered. IV ceftriaxone 1 g daily. IV fluid normal saline. Urologist consulted. Chronic A. fib with RVR: Twelve-lead EKG reviewed. 2. Paroxysmal A. fib RVR: Twelve-lead EKG in ED shows A. fib with RVR with PVCs, nonischemic ST-T changes. Heart rate 146/min. Previous EKG on 15 February 2022 shows normal sinus rhythm 67, QTc 433 ms. I think A. fib with RVR precipitated from infection/UTI. INR 1.8. Patient had therapeutic dose of Lovenox in ED. Warfarin dose increased to 5 mg daily. Troponin one-time elevated 77. Cycle troponin. 3. Recent COVID 19 infection: Patient is on intensity of COVID infection. Does not have URI symptoms.Patient not hypoxic. Mild tachypneic but respiratory rate is better. Does not qualify for treatment including steroid remdesivir or baricitinib. Chest x-ray individually reviewed does not show acute change. 4.Hypothyroidism: BNP is normal. TSH is high. Free T4 tomorrow AM. 5. Other comorbidities include hypertension, depression: Home medication reconciliation done. We will hold antihypertensive medication for now Living will/advanced directive/end of life care: Patient does DNR CC arrest and she is very clear in her thought process have living will or advanced directive. After discussion of benefits/risks procedures involved with full code, DNR CC arrest and DNR CC, the patient opted for DNRCC arrest with no intubation and she is very clear in her thought process. Patient doesn't want artificial life support including intubation, tube feed, ventilator and/chest compression, central venous catheter, vasopressor and DC shock if needed Total time spent in [id number] encounter in discussion of advanced directive 16 minutes. Laboratory Results 05/18/22 09:32: WBC 19.7 H, RBC 4.75, Hgb 14.3, Hct 41.7, MCV 87.8, MCH 30.1, MCHC 34.3, RDW Std Deviation 44.6 H, RDW Coeff of Henry 13.7, Plt Count 168, MPV 10.8, Immature Gran % (Auto) 0.500, Neut % (Auto) 85.9 H, Lymph % (Auto) 5.1 L, [place] % (Auto) 8.1, Eos % (Auto) 0.1, Baso % (Auto) 0.3, Absolute Neuts (auto) 17.0 H, Absolute Lymphs (auto) 1.00, Nucleated RBC % 0, Diff Path Review May foll, Microcytosis 19.7 05/18/22 09:32: PT 20.6 H, INR 1.8 05/18/22 09:32: Sodium 132 L, Potassium 3.5, Chloride 99, Carbon Dioxide 24.0, Anion Gap 9, BUN 64 H, Creatinine 2.22 H, Estim Creat Clear Calc 16.87, Est GFR (MDRD) Af Amer 27 L, Est GFR (MDRD) Non-Af 23 L, BUN/Creatinine Ratio 28.8 H, Glucose 216 H, Calcium 9.1, Troponin I High Sens 64 H, TSH 8.29 H 05/18/22 09:32: B-Natriuretic Peptide 69.1 05/18/22 10:45: Urine Color Yellow, Urine Clarity Cloudy, Urine pH 5.0, Ur Specific [place] 1.010, Urine Protein 100 H, Urine Glucose (UA) Normal, Urine Ketones Negative, Urine Occult Blood 250 H, Urine Nitrite Negative, Urine Bilirubin Negative, Urine Urobilinogen 1 H, Ur Leukocyte Esterase 500 H, Urine RBC 10-25 SEEN, Urine WBC 25-50 SEEN, Ur Squamous Epith Cells 0-5 SEEN, Amorphous Sediment 2+, Urine Bacteria 4+, Urine Mucus 0 SEEN 05/18/22 11:38: Troponin I High Sens 77 H 05/18/22 11:38: Lactic Acid 2.0 05/18/22 11:38: Phosphorus Pending, Magnesium Pending, Total Bilirubin Pending, Direct Bilirubin Pending, AST Pending, ALT Pending, Alkaline Phosphatase Pending, Total Protein Pending, Albumin Pending Charges/Coding Visit Charges Inpatient E&M: 94210 Init Hosp L3 Procedures Hospitalists Procedures: 42969 Advncd Care Plan 30 Min
[2022-05-18] MEDS: Ceftriaxone 1 GM/50 ML BAG IV (12:04)
[2022-05-18 12:13] LABS: Troponin-I HS 77 pg/mL (3.0-54.0)
[2022-05-18 12:28] LABS: BNP,B-Type NATRIURETIC PEPTIDE 69.1 pg/mL (0-100)
[2022-05-18] MEDS: Lactated Ringers 1,000 ML 999 ML IV (12:33)
--- NOTE | 2022-05-18 13:00 | PCM.CONS.U ---
Assessment & Plan Assessment/Plan (1) Severe sepsis with acute organ dysfunction: PLAN: Patient is being admitted for sepsis can start her on antibiotic biotics. (2) Urinary tract infection: PLAN: Urine culture is pending. (3) Left ureteral calculus: PLAN: N.p.o. at midnight plan for cystoscopy stent placement tomorrow first available time slot if her current clinical conditions worsen this may become an emergency. HPI Consult Data Date of Consult: 05/18/22 HPI Narrative Reason for Consultation: Left ureteral calculi HPI Narrative: NITISH MOLINA, is a 82 F who presents with urinary tract infection and left flank pain she had a CT scan to demonstrate obstructing stone in the proximal left ureter. The patient is being admitted to the medical service for medical management plan to make her n.p.o. at midnight, will get an EKG, and will plan for cystoscopy and left stent placement tomorrow I called the OR and asked for first available time slot for tomorrow n.p.o. at midnight. [facility] [place] Medical History Atrial fibrillation COVID-19 virus infection Depression Hypertension Hypothyroidism Home Medications benazepril 10 mg tablet 10 mg PO DAILY 02/15/22 [History Last Taken 05/15/22] levothyroxine 150 mcg tablet 150 mcg PO DAILY THYROID 02/15/22 [History Last Taken 05/15/22] trazodone 50 mg tablet 50 mg PO QHS SLEEP 02/15/22 [History Last Taken 05/16/22] warfarin 4 mg tablet 4 mg PO DAILY AFIB 02/15/22 [History Last Taken 05/16/22] citalopram 20 mg tablet 20 mg PO DAILY DEPRESSION 05/18/22 [History Last Taken 05/15/22] furosemide 20 mg tablet 20 mg PO TUTHSA 05/18/22 [History Last Taken 05/04/22] metoprolol tartrate 25 mg tablet 12.5 mg PO BID AFIB 05/18/22 [History Last Taken 05/15/22] milk thistle 500 mg capsule 500 mg PO DAILY SUPPLEMENT 05/18/22 [History Last Taken 05/04/22] quercetin 500 mg capsule 500 mg PO DAILY SUPPLEMENT 05/18/22 [History Last Taken 12/28/22] Allergy/AdvReac Type Severity Reaction Status Date / Time No Known Allergies Allergy Verified 05/18/22 09:31 Surgical History History of appendectomy History of cholecystectomy Social History household members: none Smoking Status: Former smoker substance use type: does not use ROS Constitutional Constitutional: Denies chills, fever(s) or malaise Eyes Eyes: Denies blurry vision or change in vision ENT HEENT: Reports none Cardiovascular Cardiovascular: Denies chest pain or palpitations Respiratory/Chest Respiratory/Chest: Denies cough or shortness of breath with exertion Gastrointestinal Gastrointestinal: Denies abdominal pain, constipation or diarrhea Musculoskeletal Musculoskeletal: Denies back pain, joint stiffness or joint swelling Integumentary Integumentary: Denies dry skin, jaundice, lesions or rash Neurologic Neurologic: Denies confusion, syncope or weakness Psychiatric Psychiatric: Reports none; Denies anxiety or depression Endocrine Endocrinology: Denies excessive sweating, fatigue or flushing Hematologic/Lymphatic Hematologic/Lymphatic: Denies anemia, easy bleeding or easy bruising Physical Exam Const alert and oriented x3 General Appearance: cooperative HEENT normocephalic, head/scalp atraumatic, EAC's normal and TM's normal bilaterally Eyes PERRL and EOMs intact bilaterally Pupil: sluggish Neck no lymphadenopathy, supple and no JVD General: trachea midline Lymph Lymphatic: no lymphadenopathy noted, lymphedema and lymphadenopathy Resp normal respiratory effort, normal air movement and clear to auscultation bilaterally Cardio regular rate, regular rhythm and peripheral pulses 2+ throughout GI soft to palpation, non-tender and non-distended Extremity normal capillary refill and no clubbing, cyanosis or edema General Extremity: no tenderness to palpation of joints or extremities Skin no rashes or lesions noted General Skin Exam: turgor normal Lesions: no lesions Rashes: no rashes Neuro CN's II-XII intact bilaterally Speech: speech normal Motor Exam: strength 5/5 throughout; Negative for general weakness Psych thought process normal, cooperative and affect normal Appearance: appropriate Medical Records Data Attestation: I reviewed the patient's medical records Lab / Micro Data Attestation: I reviewed the patient's lab results. Result Diagrams: 05/18/22 09:32 05/18/22 09:32 Labs: Laboratory Results - last 24 hr 05/18/22 09:32: WBC 19.7 H, RBC 4.75, Hgb 14.3, Hct 41.7, MCV 87.8, MCH 30.1, MCHC 34.3, RDW Std Deviation 44.6 H, RDW Coeff of Henry 13.7, Plt Count 168, MPV 10.8, Immature Gran % (Auto) 0.500, Neut % (Auto) 85.9 H, Lymph % (Auto) 5.1 L, [place] % (Auto) 8.1, Eos % (Auto) 0.1, Baso % (Auto) 0.3, Absolute Neuts (auto) 17.0 H, Absolute Lymphs (auto) 1.00, Nucleated RBC % 0, Diff Path Review May foll, Microcytosis 19.7 05/18/22 09:32: PT 20.6 H, INR 1.8 05/18/22 09:32: Sodium 132 L, Potassium 3.5, Chloride 99, Carbon Dioxide 24.0, Anion Gap 9, BUN 64 H, Creatinine 2.22 H, Estim Creat Clear Calc 16.87, Est GFR (MDRD) Af Amer 27 L, Est GFR (MDRD) Non-Af 23 L, BUN/Creatinine Ratio 28.8 H, Glucose 216 H, Calcium 9.1, Troponin I High Sens 64 H, TSH 8.29 H 05/18/22 09:32: B-Natriuretic Peptide 69.1 05/18/22 10:45: Urine Color Yellow, Urine Clarity Cloudy, Urine pH 5.0, Ur Specific [place] 1.010, Urine Protein 100 H, Urine Glucose (UA) Normal, Urine Ketones Negative, Urine Occult Blood 250 H, Urine Nitrite Negative, Urine Bilirubin Negative, Urine Urobilinogen 1 H, Ur Leukocyte Esterase 500 H, Urine RBC 10-25 SEEN, Urine WBC 25-50 SEEN, Ur Squamous Epith Cells 0-5 SEEN, Amorphous Sediment 2+, Urine Bacteria 4+, Urine Mucus 0 SEEN 05/18/22 11:38: Troponin I High Sens 77 H 05/18/22 11:38: Lactic Acid 2.0 Rhythm Strip Rhythm Strip: A-fib (Rate of 148 with wide complexes which may represent aberrant beats versus premature ventricular beats) Rate: 148 Radiology Impression Chest X-Ray 05/18/22 09:45 IMPRESSION: No acute abnormality is seen. Electronically Signed: Hossein Martin MD at 10:02 EST , Abdomen/Pelvis CT 05/18/22 10:20 IMPRESSION: 1. 8 mm partially obstructing stone in the left proximal ureter and borderline left hydronephrosis. 2. 4 mm and 2 mm nonobstructing calculi in the left lower renal infundibula. 3. 4.8 cm hypodense cyst in the left anterior renal parenchyma protruding into the left anterior perirenal space. No follow-up is needed. 4. Mild right renal atrophy when compared to the left kidney. 5. Right periumbilical hernia containing only omental fat. Electronically Signed: Moy Joseph MD at 11:49 EST ,
--- NOTE | 2022-05-18 13:34 | ECHOCS_ITS ---
Reason For Study: AFIB/FLUTTER Procedure This was a 2D Doppler, Color Flow transthoracic echocardiogram. The study was technically difficult. Due to body habitus and arrhythmia. Exam performed portable in patient room. Left Ventricle Normal LV size. Moderate concentric left ventricular hypertrophy. Left ventricular systolic function is normal. The estimated ejection fraction is 55 %. No regional wall motion abnormalities noted. Right Ventricle Normal RV size. Normal systolic function. Atria The left atrium is moderately enlarged. Normal right atrium. Great Vessels Normal aortic root. Pericardium/Pleural No pericardial effusion. Medication Diluted definity 3.0ml given slow IV push to enhance endocardial definition. MMode/2D Measurements & Calculations LVIDd: 4.1 cm IVSd: 1.6 cm Ao root diam: 2.8 cm LVIDs: 3.4 cm LVPWd: 1.5 cm FS: 18.0 % LAV(MOD-bp): 105.8 ml LVAd ap4: 25.4 cm2 LVAd ap2: 20.1 cm2 LAV(MOD-bp) Indexed: 48.7 ml/m2 LVLd ap4: 7.2 cm LVLd ap2: 7.3 cm LAV(MOD-sp2): 103.7 ml EDV(MOD-sp4): 73.2 ml EDV(MOD-sp2): 48.5 ml LAV(MOD-sp4): 103.0 ml EDV(sp4-el): 76.3 ml EDV(sp2-el): 47.3 ml LVAs ap4: 19.3 cm2 LVAs ap2: 15.4 cm2 LVLs ap4: 6.9 cm LVLs ap2: 7.0 cm ESV(MOD-sp4): 45.7 ml ESV(MOD-sp2): 29.2 ml ESV(sp4-el): 45.7 ml ESV(sp2-el): 28.7 ml EF(MOD-sp4): 37.5 % EF(MOD-sp2): 39.8 % EF(sp4-el): 40.1 % SV(MOD-sp4): 27.5 ml SV(MOD-sp2): 19.3 ml SV(sp4-el): 30.6 ml LA A4 area: 28.9 cm2 LA dimension(2D): 4.1 cm Doppler Measurements & Calculations MV E max sanna: 119.4 cm/sec Ao V2 max: 118.0 cm/sec LV V1 max: 68.2 cm/sec Ao max P.6 mmHg LV V1 max P.9 mmHg Ao V2 mean: 76.7 cm/sec LV V1 mean P.1 mmHg Ao mean P.8 mmHg LV V1 mean: 49.1 cm/sec Ao V2 VTI: 17.3 cm LV V1 VTI: 9.5 cm AV (velocity ratio): 0.55 PA V2 max: 125.7 cm/sec ECHO/Echo Complete W/ Contrast Interpretation Summary Normal LV size. Left ventricular systolic function is normal. The estimated ejection fraction is 55 %. Moderate concentric left ventricular hypertrophy. The left atrium is moderately enlarged. Contrast injection was performed. Ordering Physician: Zenon Muniz Referring Physician: Cory Santacruz Performed By: Denise Kraft, MANDIE, RVT
[2022-05-18 13:37] LABS: AST(SGOT) 31 U/L (15-37); Alanine Aminotransfer ALT/SGPT 25 U/L (13-56); Albumin, Serum 2.2 g/dL (3.2-5.0); Alkaline Phosphatase 71 U/L (45-117); Bilirubin, Direct 0.62 mg/dL (0.00-0.30); Globulin 4.4 g/dL (2.2-4.2); Magnesium 2.2 mg/dL (1.6-2.6); Phosphorus 2.6 mg/dL (2.5-4.9); Protein, Total 6.6 g/dL (6.4-8.2)
[2022-05-18] MEDS: Acetaminophen 325 MG Tablet 650 MG PO ×2 (13:51→20:42)
[2022-05-18] MEDS: Aspirin E.C. 81 MG Tablet PO (13:51)
[2022-05-18] MEDS: 0.9% Normal Saline 1,000 ML 125 ML IV ×2 (13:52→21:52)
[2022-05-18] MEDS: dilTIAZem 25 MG/5 ML Vial 15 MG IV BOLUS (14:14)
[2022-05-18] MEDS: 0.9% Saline Lock 10 ML Syringe IV (14:14)
[2022-05-18] MEDS: Metoprolol Tartrate 25 MG Tablet PO (14:22)
[2022-05-18 15:47] LABS: Reflex Lactate? Y
[2022-05-18] MEDS: dilTIAZem CD 120 MG Capsule PO (16:33)
[2022-05-18] MEDS: Ensure Plus High Protein 120 ML LIQUID PO ×2 (16:34→20:42)
[2022-05-18 16:37] LABS: Troponin-I HS 77 pg/mL (3.0-54.0)
[2022-05-18 16:41] LABS: Lactic Acid 1.6 mmol/L (0.4-1.9)
[2022-05-18] MEDS: traZODone 50 MG Tablet PO (20:41)
[2022-05-18] MEDS: Metoprolol Tartrate 50 MG Tablet PO (20:47)
[2022-05-19] VITALS (16 sets, daily range): BP systolic 90–153; BP diastolic 71–131; PULSE 74–101; RESP 16–20; TEMP 36.2–36.9; O2SAT 90–97
[2022-05-19] MEDS: Acetaminophen 325 MG Tablet 650 MG PO ×3 (03:46→17:02)
[2022-05-19] MEDS: Levothyroxine 150 MCG Tablet PO (05:05)
[2022-05-19 06:52] LABS: Absolute Lymphocyte Count 0.99 X10^3/uL (0.83-4.51); Absolute Neutrophil Count 12.6 X10^3/uL (2.0-7.7); Basophil# 0.09 X10^3/uL; Basophil% 0.6 % (0-1); Eosinophil# 0.04 X10^3/uL; Eosinophils% 0.3 % (0-5); Hematocrit 39.1 % (37-47); Hemoglobin 12.5 g/dL (12.0-15.0); Lymphocyte # 0.99 X10^3/ul (0.83-4.51); Lymphocyte % 6.2 % (19-41); Mean Corpuscular Hgb 29.6 pg (27.0-32.0); Mean Corpuscular Volume 92.4 fL (81-99); Mean Platelet Vol. 10.5 fl (6.2-12.0); Monocyte# 1.94 X10^3/uL; Monocyte% 12.2 % (0-10); NRBC Flagged by Analyzer 0 % (0-5); Neutrophil # 12.63 X10^3/uL (2.7-7.7); Neutrophil % 79.4 % (47-70); POSITIVE DIFFERENTIAL YES; Platelet Count 144 K/mm3 (150-450); RBC Distribution Width CV 14.1 % (11.6-14.6); RBC Distribution Width SD 47.9 fl (35.1-43.9); Red Blood Count 4.23 M/mm3 (4.2-5.4); White Blood Count 15.9 K/mm3 (4.4-11.0)
[2022-05-19 07:01] LABS: International Normalized Ratio 2.2; Prothrombin Time (Protime)PT. 23.8 SECONDS (11.7-14.9)
[2022-05-19 07:03] LABS: Differential Indicated SCAN CRITERIA MET
[2022-05-19 07:30] LABS: Anion Gap 7 (5-15); BUN 57 mg/dL (7-18); BUN/Creat Ratio 37.7 RATIO (10-20); Calcium,Total 8.4 mg/dL (8.5-10.1); Chloride 105 mmol/L (98-107); Cholesterol 106 mg/dL (200); Creatinine, Serum 1.51 mg/dL (0.55-1.02); EST Glomerular Filtration Rate 35 mL/min (>60); Est Glom Filt Rate - Afr Amer 42 mL/min (>60); Glucose 160 mg/dL (74-106); High Density Lipoprotein 9 mg/dL; Potassium 3.4 mmol/L (3.5-5.1); Sodium Level 138 mmol/L (136-145); T4 Free Direct 1.16 ng/dL (0.76-1.46); Thyroid Stim Hormone (TSH) 4.31 uIU/mL (0.358-3.74); Triglycerides 246 mg/dL; Very Low Density Lipoprotein 49 mg/dL (5-40)
--- NOTE | 2022-05-19 07:31 | PCM.CONS.B ---
Consult Date of Consult: 05/19/22 Reason for Consult Patient has a kidney stone on the left side causing obstruction of the left kidney plan to proceed with cystoscopy and stent placement today n.p.o. for surgery.
[2022-05-19] MEDS: dilTIAZem CD 120 MG Capsule PO (08:44)
[2022-05-19] MEDS: Ceftriaxone 1 GM/50 ML BAG IV (08:44)
[2022-05-19] MEDS: Metoprolol Tartrate 50 MG Tablet PO ×2 (08:46→21:50)
[2022-05-19] MEDS: 0.9% Saline Lock 10 ML Syringe IV (08:48)
[2022-05-19 09:35] LABS: Pathologist Review Reviewed
--- NOTE | 2022-05-19 12:35 | CASEMGMT ---
RN CM Face to Face with patient for initial transition planning/care coordination assessment. RN CM introduced self and role at [facility]. Patient lying in bed, alert and oriented. Patient willing to participate in assessment and is able to answer all questions appropriately. Care providers, pharmacy, and demographics verified. Patient wishes to discharge home, will monitor progress with therapy. Patient states she has no further needs or concerns at this time. CM to follow for discharge planning needs that may arise. PCP: Neeta Specialists: none Preferred [facility] Insurance: [employer] [facility] Prescription Benefit: yes Living Will/HPOA: yes, sisters Tessa and Aurelia LNOK: sisters Living Arrangements: Patient lives alone in a 2 story home with bed and bath on first floor. Patient states she is independent at home. Transportation: self, sisters DME/HHC: Patient states she has cane at home. No previous HHC or SNF. Will monitor for HHC and DME needs. Disposition Plan: Patient to discharge home with family support and follow-up plans in place. Joanna BROCK, RN, CM
--- NOTE | 2022-05-19 14:26 | OP.PCM_ITS ---
Report of Operation Date of Procedure: 05/19/22 Pre-Operative Diagnosis: Left ureteral calculi Post-Operative Diagnosis: The same with obstruction Surgery/Procedure Performed:: Cystoscopy and left stent placement, left retrograde pyelogram Description of Surgical Findings:: Patient was taken back to the operating room after induction of general anesthesia, the patient was placed in dorsolithotomy position. The urethra and genitals were prepped and draped in usual sterile fashion. Using a 21 Somali rigid cystourethroscope the entire length of the urethra was normal then went into the bladder. Identified the trigone the left and right ureteral orifice. I then cannulated the left ureteral orifice and advanced a wire up into the kidney passed the stone in the left UPJ. I then backloaded a 5 Somali open ended catheter over the wire and injected contrast to delineate the anatomy. After the retrograde was performed I then used fluoroscopic images and guidance to advanced a wire up into the kidney and over the 0.038 glidewire I advanced a 6 Somali by 26 cm double pigtail stent. I then pulled the 0.038 Glidewire off and the stent coiled in the kidney bladder good position. The bladder was then drained. We confirmed the position of the stent by fluoroscopy. Patient anesthetic was reversed and was taken back to the PACU in good condition. Surgeon: Shar Gutierrez Type of Anesthesia: MAC Drains: left stent Admit VTE Documentation VTE Present on Admission: No VTE Mechan Device Prophylaxis: SCD's VTE Pharm Prophylaxis ordered?: No
--- NOTE | 2022-05-19 15:38 | CHAPLAIN ---
Type of Pastoral Visit ___ Initial Visit ___ Follow-up Visit ___ On-call Visit ___ General Patient Visit ___ Spiritual Assessment ___ Family Conference ___ Bereavement ___ Rapid Response ___ Code Blue ___ Other (describe below) Pastoral Care Referral From ___ Patient ___ Family ___ Nurse ___ Physician ___ Technical Assistant ___ Purchasing Contracting Clerk ___ Other (describe below) Sacrament/Intervention ___ Active listening ___ Anointing ___ Congregational ___ Bereavement ___ Communion ___ Dianna exploration ___ ___ Life review ___ Prayer ___ Reconciliation ___ Sacrament of Sick ___ Supportive presence ___ Wedding ___ Other (describe below) Pastoral Comments patient is out of the room; left a calling card
--- NOTE | 2022-05-19 15:45 | PN.HOSP_ITS ---
Subjective Subjective Follow-up for left ureteric calculus, abdominal pain, A. fib with RVR Objective Data Objective Data Vital Signs: Vital Signs Temp Pulse Resp BP Pulse Ox O2 Del Method O2 Flow Rate 98.1 F 90 18 139/103 H 93 Room Air 2 05/19/22 15:16 05/19/22 15:16 05/19/22 15:16 05/19/22 15:16 05/19/22 15:16 05/19/22 15:16 05/19/22 14:45 Oxygen Flow Rate (L/min) 2 Oxygen Delivery Method Room Air Weight: 261 lb 7.492 oz Body Mass Index (BMI) 43.9 Intake & Output: Intake and Output for Last 24 Hours 05/17/22 05/18/22 05/19/22 23:59 23:59 23:59 Intake Total 2049 1410 / 1410 Output Total 250 / 250 Balance 2049 1160 / 1160 Medical Nutrition Assessment Dietitian: Malnutrition Criteria Met Start: 05/18/22 16:07 Freq: Status: Active Protocol: Document 05/18/22 16:07 AG (Rec: 05/18/22 16:08 [id number]) Nutrition Malnutrition Evidence of Malnutrition Exists Yes Malnutrition (severe): Acute Illness/Injury Evidenced By Suboptimal Energy Intake ( Severe),Weight Loss (Severe) Clinical Problem Acute Disease or Injury Related Malnutrition Etiology severe, acute malnutrition related to inadequate energy intake d/t nausea, acute COVID illness Signs/Symptoms as evidenced by reported unintentional wt loss of 13.6# /5% x 1 week and reported estimated PO intake meeting < 50% of estimated energy needs x 1 week Status Active Problem Recommendation Dietitian Recommendations/Changes continue cardiac diet as tolerated; will consider liberalizing to regular if PO intake does not improve. Will continue ensure plus high protein 120mL 4x/day as ordered until PO intake at meals improves. Lab / Micro Data Result Diagrams: 05/19/22 06:30 05/19/22 06:30 Labs: Laboratory Results - last 24 hr 05/18/22 09:32: Diff Path Review Reviewed 05/18/22 15:37: Troponin I High Sens 77 H 05/18/22 16:07: Lactic Acid 1.6 05/19/22 06:30: WBC 15.9 H, RBC 4.23, Hgb 12.5, Hct 39.1, MCV 92.4 D, MCH 29.6, MCHC 32.0 D, RDW Std Deviation 47.9 H, RDW Coeff of Henry 14.1, Plt Count 144 L, MPV 10.5, Immature Gran % (Auto) 1.300 H, Neut % (Auto) 79.4 H, Lymph % (Auto) 6.2 L, [place] % (Auto) 12.2 H, Eos % (Auto) 0.3, Baso % (Auto) 0.6, Absolute Neuts (auto) 12.6 H, Absolute Lymphs (auto) 0.99, Nucleated RBC % 0, Differential Comment COMMENT, Diff Path Review September foll 05/19/22 06:30: PT 23.8 H, INR 2.2 05/19/22 06:30: Sodium 138, Potassium 3.4 L, Chloride 105, Carbon Dioxide 26.0, Anion Gap 7, BUN 57 H, Creatinine 1.51 H, Estim Creat Clear Calc 24.80, Est GFR (MDRD) Af Amer 42 L, Est GFR (MDRD) Non-Af 35 L, BUN/Creatinine Ratio 37.7 H, Glucose 160 H, Calcium 8.4 L, Triglycerides 246 H, Cholesterol 106, LDL Cholesterol 48, VLDL Cholesterol 49 H, HDL Cholesterol 9 L, TSH 4.31 H, Free T4 1.16 Micro: Microbiology 05/18/22 11:38 Blood Culture (Wb) - Anticubital Left Blood Culture - Preliminary 05/18/22 11:50 Blood Culture (Wb) - Left Hand Blood Culture - Preliminary Radiography Diagnostic Testing: Radiology Impression Echocardiogram 05/18/22 13:34 Interpretation Summary Normal LV size. Left ventricular systolic function is normal. The estimated ejection fraction is 55 %. Moderate concentric left ventricular hypertrophy. The left atrium is moderately enlarged. Contrast injection was performed. Ordering Physician: Zenon Muniz Referring Physician: Cory Santacruz Performed By: Denise Kraft, RDCS, RVT Rhythm Strip Rhythm Strip: A-fib (Rate of 148 with wide complexes which may represent aberrant beats versus premature ventricular beats) Rate: 148 Physical Exam Narrative Patient is still in A. fib, heart rate 90s to 100 100s. She still complains of left lower abdominal pain. Chest pain low intensity, 2-3/10 and intermittent. Physical exam General: Alert, Oriented x3, Cooperative, morbid obesity BMI 45.9 kg/m? HEENT: Atraumatic, PERRLA, EOMI, Normocephalic Oral: Oral mucosa moist. No Gingival or Mucosal Lesions/ Ulcerations Neck: Supple, No JVD, Negative Carotid Bruits Lungs: Air entry diminished in bilateral lung bases. No crepitation/rhonchi. No hypoxia Cardiovascular: A. fib, heart rate better controlled. Normal S1, Normal S2, No murmurs Abdomen: Fat pendulous abdomen. Soft, tenderness present over left lower quadrant. Bowel Sounds Present, nondistended : No renal angle tenderness. No suprapubic tenderness. Extremities: Mild bilateral chronic ankle edema, Capillary Refill Less than 3 Seconds Skin: No rashes, No breakdown Musculoskeletal: No Tenderness to Palpation of Joints or Extremities. ROM restricted muscle strength 4+/5 at knees and hip joints Neurological: Cranial nerves II-XII grossly intact, DTR 2+/4 and Symmetrical, Neuro grossly intact Psych/Mental Status: Flat affect. Assessment & Plan Assessment/Plan (1) Atrial fibrillation with rapid ventricular response: (2) Left ureteral calculus: PLAN: Plan This is a 82-year-old female is being admitted to PCU for mild shortness of breath, left-sided chest pain, abdominal pain with A. fib with RVR 1. UTI most likely due to left ureteric calculi and borderline hydronephrosis: Patient is being admitted to PCU. CT abdomen reviewed with the urologist Dr. Gutierrez. Patient has 8 mm partially obstructing stone in left proximal ureter with borderline left hydronephrosis. 4 mm tubular nonobstructing calculi in left lower renal infundibula. Mild right renal atrophy. Patient has leukocytosis. Patient does not look toxic but has low-grade fever 99.7 Fahrenheit.Patient is not hypotensive but blood pressure went down after giving IV metoprolol 5 mg x 2. Patient has leukocytosis but lactic acid normal. Liver chemistry pending. Overall I have very low probability for sepsis. IV fluid Ringer lactate 1 L ordered. IV ceftriaxone 1 g daily. IV fluid normal saline. Urologist consulted. 05/19: Urologist consult reviewed and discussed with him. Blood cultures x2 growing gram-negative rods. Urine culture pending. Continue IV ceftriaxone. No fever. Plan for cystoscopy and left retrograde stent. Leukocytosis has improved. Mild hypokalemia, potassium is getting replaced. 2. Paroxysmal A. fib RVR: Twelve-lead EKG in ED shows A. fib with RVR with PVCs, nonischemic ST-T changes. Heart rate 146/min. Previous EKG on 15 February 2022 shows normal sinus rhythm 67, QTc 433 ms. I think A. fib with RVR precipitated from infection/UTI. INR 1.8. Patient had therapeutic dose of Lovenox in ED. Warfarin dose increased to 5 mg daily. Troponin one-time elevated 77. Cycle troponin. 05/19: Patient has low-grade left-sided chest pain unclear but seems mainly positional/musculoskeletal as troponins were borderline elevated 64, 77 and 77. Does not seem to be having [place] but may be acute myocardial injury from A. fib with RVR. Recommend outpatient stress test after 2 weeks from discharge on her baseline health. INR 2.2. I will decrease the warfarin to 4 mg daily. 3. Recent COVID 19 infection: Patient is on intensity of COVID infection. Does not have URI symptoms.Patient not hypoxic. Mild tachypneic but respiratory rate is better. Does not qualify for treatment including steroid remdesivir or baricitinib. Chest x-ray individually reviewed does not show acute change. 4.Hypothyroidism: BNP is normal. TSH is high. 05/19: Free T4 tomorrow 1.16. Patient on levothyroxine 150 mcg daily. I would not increase it as it will further increase RVR. TSH is mildly elevated 4.31 5. RAJESH since admission:Patient admitting creatinine 2.22, improved to 1.51. Her baseline is 0.76 on February 2022. Continue IV fluid. Hold nephrotoxic medi cations. Patient has documented 3 L of positive fluid balance. IV fluid d ecreased to half-normal saline at 60 mill per hour 5. Other comorbidities include hypertension, depression: Home medication reconciliation done. We will hold antihypertensive medication for now Living will/advanced directive/end of life care: Patient does DNR CC arrest and she is very clear in her thought process have living will or advanced directive. After discussion of benefits/risks procedures involved with full code, DNR CC arrest and DNR CC, the patient opted for DNRCC arrest with no intubation and she is very clear in her thought process. Patient doesn't want artificial life support including intubation, tube feed, ventilator and/chest compression, central venous catheter, vasopressor and DC shock if needed Total time spent in [id number] encounter in discussion of advanced directive 16 minutes. Microbiology Past 72 Hours 05/18/22 11:38 Blood Culture (Wb) - Anticubital Left Blood Culture - Preliminary 05/18/22 11:50 Blood Culture (Wb) - Left Hand Blood Culture - Preliminary Laboratory Results 05/18/22 09:32: Diff Path Review Reviewed 05/18/22 15:37: Troponin I High Sens 77 H 05/18/22 16:07: Lactic Acid 1.6 05/19/22 06:30: WBC 15.9 H, RBC 4.23, Hgb 12.5, Hct 39.1, MCV 92.4 D, MCH 29.6, MCHC 32.0 D, RDW Std Deviation 47.9 H, RDW Coeff of Henry 14.1, Plt Count 144 L, MPV 10.5, Immature Gran % (Auto) 1.300 H, Neut % (Auto) 79.4 H, Lymph % (Auto) 6.2 L, [place] % (Auto) 12.2 H, Eos % (Auto) 0.3, Baso % (Auto) 0.6, Absolute Neuts (auto) 12.6 H, Absolute Lymphs (auto) 0.99, Nucleated RBC % 0, Differential Comment COMMENT, Diff Path Review May foll 05/19/22 06:30: PT 23.8 H, INR 2.2 05/19/22 06:30: Sodium 138, Potassium 3.4 L, Chloride 105, Carbon Dioxide 26.0, Anion Gap 7, BUN 57 H, Creatinine 1.51 H, Estim Creat Clear Calc 24.80, Est GFR (MDRD) Af Amer 42 L, Est GFR (MDRD) Non-Af 35 L, BUN/Creatinine Ratio 37.7 H, Glucose 160 H, Calcium 8.4 L, Triglycerides 246 H, Cholesterol 106, LDL Cholesterol 48, VLDL Cholesterol 49 H, HDL Cholesterol 9 L, TSH 4.31 H, Free T4 1.16 Charges/Coding Visit Charges Inpatient E&M: 30689 Subs Hosp L2
[2022-05-19] MEDS: 0.45% Normal Saline 1,000 ML 60 ML IV (16:09)
[2022-05-19] MEDS: Ensure Plus High Protein 120 ML LIQUID PO (17:02)
[2022-05-19] MEDS: Potassium Chloride Oral Tablet 20 MEQ 40 MEQ PO (17:02)
[2022-05-19] MEDS: traZODone 50 MG Tablet PO (21:51)
[2022-05-20] VITALS (8 sets, daily range): BP systolic 125–144; BP diastolic 84–92; PULSE 63–120; RESP 14–18; TEMP 36.7–36.9; O2SAT 94–97
[2022-05-20] MEDS: Acetaminophen 325 MG Tablet 650 MG PO ×4 (00:20→22:39)
[2022-05-20] MEDS: Levothyroxine 150 MCG Tablet PO (05:31)
[2022-05-20 06:33] LABS: Absolute Lymphocyte Count 1.39 X10^3/uL (0.83-4.51); Absolute Neutrophil Count 11.8 X10^3/uL (2.0-7.7); Basophil# 0.07 X10^3/uL; Basophil% 0.4 % (0-1); Eosinophil# 0.09 X10^3/uL; Eosinophils% 0.5 % (0-5); Hematocrit 37.1 % (37-47); Hemoglobin 12.6 g/dL (12.0-15.0); Lymphocyte # 1.39 X10^3/ul (0.83-4.51); Lymphocyte % 8.4 % (19-41); Mean Corpuscular Hgb 30.4 pg (27.0-32.0); Mean Corpuscular Volume 89.6 fL (81-99); Mean Platelet Vol. 10.5 fl (6.2-12.0); Monocyte# 2.35 X10^3/uL; Monocyte% 14.3 % (0-10); NRBC Flagged by Analyzer 0 % (0-5); Neutrophil # 11.81 X10^3/uL (2.7-7.7); Neutrophil % 71.7 % (47-70); POSITIVE DIFFERENTIAL YES; Platelet Count 158 K/mm3 (150-450); RBC Distribution Width CV 14.4 % (11.6-14.6); Red Blood Count 4.14 M/mm3 (4.2-5.4); White Blood Count 16.5 K/mm3 (4.4-11.0)
[2022-05-20 06:37] LABS: Differential Indicated SCAN CRITERIA MET
[2022-05-20 06:54] LABS: Prothrombin Time (Protime)PT. 30.5 SECONDS (11.7-14.9)
[2022-05-20 06:58] LABS: Anion Gap 8 (5-15); BUN 40 mg/dL (7-18); BUN/Creat Ratio 32.5 RATIO (10-20); Calcium,Total 8.2 mg/dL (8.5-10.1); Chloride 104 mmol/L (98-107); Creatinine, Serum 1.23 mg/dL (0.55-1.02); EST Glomerular Filtration Rate 44 mL/min (>60); Est Glom Filt Rate - Afr Amer 54 mL/min (>60); Estimated Creatinine Clearance 30.45 ml/min; Glucose 168 mg/dL (74-106); Potassium 3.8 mmol/L (3.5-5.1); Sodium Level 136 mmol/L (136-145)
[2022-05-20] MEDS: Metoprolol Tartrate 50 MG Tablet PO ×2 (09:36→21:13)
[2022-05-20] MEDS: Ceftriaxone 1 GM/50 ML BAG IV (09:36)
[2022-05-20] MEDS: Aspirin E.C. 81 MG Tablet PO (09:36)
[2022-05-20] MEDS: 0.45% Normal Saline 1,000 ML 60 ML IV (09:36)
[2022-05-20] MEDS: dilTIAZem CD 120 MG Capsule PO (09:36)
[2022-05-20] MEDS: Menthol/Lanolin/Calamine/Znox 113 GM Tube 1 APPLIC TOPICAL (09:37)
--- NOTE | 2022-05-20 11:03 | PN.HOSP_ITS ---
Subjective Subjective Patient is still in A. fib. Heart rate was in 100s to 110s in the morning. Objective Data Objective Data Vital Signs: Vital Signs Temp Pulse Resp BP Pulse Ox O2 Del Method O2 Flow Rate 98.2 F 120 H 16 142/86 H 95 Room Air 2 05/20/22 09:30 05/20/22 09:36 05/20/22 09:30 05/20/22 09:36 05/20/22 09:30 05/20/22 09:30 05/19/22 14:45 Oxygen Flow Rate (L/min) 2 Oxygen Delivery Method Room Air Weight: 270 lb 4.587 oz Body Mass Index (BMI) 43.9 Intake & Output: Intake and Output for Last 24 Hours 05/18/22 05/19/22 05/20/22 23:59 23:59 23:59 Intake Total 2050 / 2350 1810 / 1810 1000 / 1000 Output Total 250 / 250 Balance 2049 / 2350 1560 / 1560 1000 / 1000 Medical Nutrition Assessment Dietitian: Malnutrition Criteria Met Start: 05/18/22 16:07 Freq: Status: Active Protocol: Document 05/18/22 16:07 (Rec: 05/18/22 16:08 [id number]) Nutrition Malnutrition Evidence of Malnutrition Exists Yes Malnutrition (severe): Acute Illness/Injury Evidenced By Suboptimal Energy Intake ( Severe),Weight Loss (Severe) Clinical Problem Acute Disease or Injury Related Malnutrition Etiology severe, acute malnutrition related to inadequate energy intake d/t nausea, acute COVID illness Signs/Symptoms as evidenced by reported unintentional wt loss of 13.6# /5% x 1 week and reported estimated PO intake meeting < 50% of estimated energy needs x 1 week Status Active Problem Recommendation Dietitian Recommendations/Changes continue cardiac diet as tolerated; will consider liberalizing to regular if PO intake does not improve. Will continue ensure plus high protein 120mL 4x/day as ordered until PO intake at meals improves. Lab / Micro Data Result Diagrams: 05/20/22 06:24 05/20/22 06:24 Labs: Laboratory Results - last 24 hr 05/20/22 06:24: WBC 16.5 H, RBC 4.14 L, Hgb 12.6, Hct 37.1, MCV 89.6, MCH 30.4, MCHC 34.0 D, RDW Std Deviation 47.0 H, RDW Coeff of Henry 14.4, Plt Count 158, MPV 10.5, Immature Gran % (Auto) 4.700 H, Neut % (Auto) 71.7 H, Lymph % (Auto) 8.4 L, Dukes % (Auto) 14.3 H, Eos % (Auto) 0.5, Baso % (Auto) 0.4, Absolute Neuts (auto) 11.8 H, Absolute Lymphs (auto) 1.39, Nucleated RBC % 0, Diff Path Review September foll 05/20/22 06:24: PT 30.5 H, INR 3.0 05/20/22 06:24: Sodium 136, Potassium 3.8, Chloride 104, Carbon Dioxide 24.0, Anion Gap 8, BUN 40 H, Creatinine 1.23 H, Estim Creat Clear Calc 30.45, Est GFR (MDRD) Af Amer 54 L, Est GFR (MDRD) Non-Af 44 L, BUN/Creatinine Ratio 32.5 H, G lucose 168 H, Calcium 8.2 L Micro: Microbiology 05/18/22 11:50 Blood Culture (Wb) - Left Hand Blood Culture - Preliminary GNR lactose channel rebuilder 05/18/22 11:38 Blood Culture (Wb) - Anticubital Left Blood Culture - Preliminary GNR lactose channel rebuilder Rhythm Strip Rhythm Strip: A-fib (Rate of 148 with wide complexes which may represent aberrant beats versus premature ventricular beats) Rate: 148 Physical Exam Narrative Patient is still in A. fib, heart rate 90s to 100s. She still complains of left lower abdominal pain. Complain of distal abdominal pain over left side. Chest pain has resolved. Physical exam General: Alert, Oriented x3, Cooperative, morbid obesity BMI 45.9 kg/m? HEENT: Atraumatic, PERRLA, EOMI, Normocephalic Oral: Oral mucosa moist. No Gingival or Mucosal Lesions/ Ulcerations Neck: Supple, No JVD, Negative Carotid Bruits Lungs: Air entry diminished in bilateral lung bases. No crepitation/rhonchi. No hypoxia. No chest wall tenderness. Cardiovascular: A. fib, heart rate better controlled. Normal S1, Normal S2, No murmurs Abdomen: Fat pendulous abdomen. Soft, tenderness present over left lower quadrant. Bowel Sounds Present, nondistended : No renal angle tenderness. No suprapubic tenderness. Extremities: Mild bilateral chronic ankle edema, Capillary Refill Less than 3 Seconds Skin: No rashes, No breakdown Musculoskeletal: No Tenderness to Palpation of Joints or Extremities. ROM restricted. Muscle strength 4+/5 at knees and hip joints Neurological: Cranial nerves II-XII grossly intact, DTR 2+/4 and Symmetrical, Neuro grossly intact Psych/Mental Status: Flat affect. Assessment & Plan Assessment/Plan (1) Atrial fibrillation with rapid ventricular response: (2) Left ureteral calculus: PLAN: Plan This is a 82-year-old female is being admitted to PCU for mild shortness of breath, left-sided chest pain, abdominal pain with A. fib with RVR 1. UTI most likely due to left ureteric calculi and borderline hydronephrosis: Patient is being admitted to PCU. CT abdomen reviewed with the urologist Dr. Gutierrez. Patient has 8 mm partially obstructing stone in left proximal ureter with borderline left hydronephrosis. 4 mm tubular nonobstructing calculi in left lower renal infundibula. Mild right renal atrophy. Patient has leukocyto sis. Patient does not look toxic but has low-grade fever 99.7 Fahrenheit.Patient is not hypotensive but blood pressure went down after giving IV metoprolol 5 mg x 2. Patient has leukocytosis but lactic acid normal. Liver chemistry pending. Overall I have very low probability for sepsis. IV fluid Ringer lactate 1 L ordered. IV ceftriaxone 1 g daily. IV fluid normal saline. Urologist consulted. 05/19: Urologist consult reviewed and discussed with him. Blood cultures x2 growing gram-negative rods. Urine culture pending. Continue IV ceftriaxone. No fever. Plan for cystoscopy and left retrograde stent. Leukocytosis has improved. Mild hypokalemia, potassium is getting replaced. 2. Paroxysmal A. fib RVR: Twelve-lead EKG in ED shows A. fib with RVR with PVCs, nonischemic ST-T changes. Heart rate 146/min. Previous EKG on 15 February 2022 shows normal sinus rhythm 67, QTc 433 ms. I think A. fib with RVR precipitated from infection/UTI. INR 1.8. Patient had therapeutic dose of Lovenox in ED. Warfarin dose increased to 5 mg daily. Troponin one-time elevated 77. Cycle troponin. 05/19: Patient has low-grade left-sided chest pain unclear but seems mainly positional/musculoskeletal as troponins were borderline elevated 64, 77 and 77. Does not seem to be having NJ but may be acute myocardial injury from A. fib with RVR. Recommend outpatient stress test after 2 weeks from discharge on her baseline health. INR 2.2. I will decrease the warfarin to 4 mg daily. 3. Recent COVID 19 infection: Patient is on intensity of COVID infection. Does not have URI symptoms.Patient not hypoxic. Mild tachypneic but respiratory rate is better. Does not qualify for treatment including steroid remdesivir or baricitinib. Chest x-ray individually reviewed does not show acute change. 4.Hypothyroidism: BNP is normal. TSH is high. 05/19: Free T4 tomorrow 1.16. Patient on levothyroxine 150 mcg daily. I would not increase it as it will further increase RVR. TSH is mildly elevated 4.31 5. RAJESH since admission:Patient admitting creatinine 2.22, improved to 1.51. Her baseline is 0.76 on February 2022. Continue IV fluid. Hold nephrotoxic medications. Patient has documented 3 L of positive fluid balance. IV fluid decreased to half-normal saline at 60 mill per hour 5. Other comorbidities include hypertension, depression: Home medication reconciliation done. We will hold antihypertensive medication for now Living will/advanced directive/end of life care: Patient does DNR CC arrest and she is very clear in her thought process have living will or advanced directive. After discussion of benefits/risks procedures involved with full code, DNR CC arrest and DNR CC, the patient opted for DNRCC arrest with no intubation and she is very clear in her thought process. Patient doesn't want artificial life support including intubation, tube feed, ventilator and/chest compression, central venous catheter, vasopressor and DC shock if needed Total time spent in [id number] encounter in discussion of advanced directive 16 minutes. Microbiology Past 72 Hours 05/18/22 11:38 Blood Culture (Wb) - Anticubital Left Blood Culture - Preliminary 05/18/22 11:50 Blood Culture (Wb) - Left Hand Blood Culture - Preliminary Laboratory Results 05/18/22 09:32: Diff Path Review Reviewed 05/18/22 15:37: Troponin I High Sens 77 H 05/18/22 16:07: Lactic Acid 1.6 05/19/22 06:30: WBC 15.9 H, RBC 4.23, Hgb 12.5, Hct 39.1, MCV 92.4 D, MCH 29.6, MCHC 32.0 D, RDW Std Deviation 47.9 H, RDW Coeff of Henry 14.1, Plt Count 144 L, MPV 10.5, Immature Gran % (Auto) 1.300 H, Neut % (Auto) 79.4 H, Lymph % (Auto) 6.2 L, Dukes % (Auto) 12.2 H, Eos % (Auto) 0.3, Baso % (Auto) 0.6, Absolute Neuts (auto) 12.6 H, Absolute Lymphs (auto) 0.99, Nucleated RBC % 0, Differential Comment COMMENT, Diff Path Review September05/19/22 06:30: PT 23.8 H, INR 2.2 05/19/22 06:30: Sodium 138, Potassium 3.4 L, Chloride 105, Carbon Dioxide 26.0, Anion Gap 7, BUN 57 H, Creatinine 1.51 H, Estim Creat Clear Calc 24.80, Est GFR (MDRD) Af Amer 42 L, Est GFR (MDRD) Non-Af 35 L, BUN/Creatinine Ratio 37.7 H, Glucose 160 H, Calcium 8.4 L, Triglycerides 246 H, Cholesterol 106, LDL Cholesterol 48, VLDL Cholesterol 49 H, HDL Cholesterol 9 L, TSH 4.31 H, Free T4 1.16 Charges/Coding Visit Charges Inpatient E&M: 26636 Subs Hosp L2
[2022-05-20] MEDS: dilTIAZem 60 MG Tablet PO (11:21)
--- NOTE | 2022-05-20 14:44 | CASEMGMT ---
SW reviewed therapy's evaluation and patient would benefit from additional therapy. SW met with patient. Introduced self and role at [facility]. SW discussed d/c plan with patient and she said she does not feel like she could go home at discharge. Patient feels like she would benefit from going somewhere short term for rehab. SW provided patient with a list of correction facility providers including quality and resource use data and consistent with patient?s preferred geographic region, medical needs, and insurance network were provided from the [employer] Guide. Patient said she would prefer [facility] TCU. SW let her know SW will check on availability. JOSEMANUEL did explain her insurance would have to approve and SW is not sure if her insurance works over the weekend so she may be here through the weekend. Coby from TCU is not available the rest of the day. However, JOSEMANUEL was pretty sure Coby had said a bed would be available on Monday. JOSEMANUEL spoke with Margo, Director of TCU and she recommended SW call the referral line and leaving a message as this will go to Coby's email. JOSEMANUEL left a message with referral. Plan: SNF, possibly TCU pending their acceptance and insurance approval. Lisbet Merlos RESIN REMOVER JENNY
--- NOTE | 2022-05-20 16:04 | CASEMGMT ---
SW let patient know SW does not have a definite answer as to whether or not TCU can take her. SW let her know that the SW tomorrow will follow up with her. Plan: TCU pending their acceptance and insurance approval. Lisbet Merlos INSTRUCTOR MODELINGDaisy ALVARADO
--- NOTE | 2022-05-20 16:30 | CHAPLAIN ---
Type of Pastoral Visit _x__ Initial Visit ___ Follow-up Visit ___ On-call Visit ___ General Patient Visit ___ Spiritual Assessment ___ Family Conference ___ Bereavement ___ Rapid Response ___ Code Blue ___ Other (describe below) Pastoral Care Referral From _x__ Patient ___ Family ___ Nurse ___ Physician ___ Canvas Cutter ___ Record Clerk ___ Other (describe below) Sacrament/Intervention _x__ Active listening ___ Anointing ___ Jainism ___ Bereavement ___ Communion ___ Dianna exploration ___ ___ Life review _x__ Prayer ___ Reconciliation ___ Sacrament of Sick _x__ Supportive presence ___ Wedding ___ Other (describe below) Pastoral Comments patient is alone in room and admits to pain and loneliness; pt has family that will come in; pt has dianna and jehovah's witness support but requests prayer and presence at this time
--- NOTE | 2022-05-20 16:54 | CASEMGMT ---
JOSEMANUEL was able to find out TCU can take patient, but pre-cert will not be started until Monday as insurance is not open on the weekend. SW notified patient. Plan: d/c to TCU pending insurance approval. Lisbet ALVARADO
[2022-05-20] MEDS: traZODone 50 MG Tablet PO (21:13)
[2022-05-20] MEDS: dilTIAZem CD 180 MG Capsule PO (21:13)
[2022-05-21] VITALS (11 sets, daily range): BP systolic 112–143; BP diastolic 75–87; PULSE 67–130; RESP 16–19; TEMP 36.4–36.8; O2SAT 93–96
[2022-05-21] MEDS: oxyCODONE 5 MG Tablet 10 MG PO ×2 (00:45→22:58)
[2022-05-21] MEDS: 0.45% Normal Saline 1,000 ML 60 ML IV ×2 (00:53→17:09)
[2022-05-21] MEDS: Levothyroxine 150 MCG Tablet PO (05:34)
[2022-05-21 08:13] LABS: Hemoglobin 13.4 g/dL (12.0-15.0); Mean Corp Hgb Conc 31.9 g/dL (32-36); Mean Corpuscular Hgb 29.3 pg (27.0-32.0); Mean Corpuscular Volume 91.7 fL (81-99); Mean Platelet Vol. 10.3 fl (6.2-12.0); POSITIVE COUNT YES; POSITIVE DIFFERENTIAL YES; POSITIVE MORPHOLOGY YES; Platelet Count 229 K/mm3 (150-450); RBC Distribution Width CV 14.4 % (11.6-14.6); RBC Distribution Width SD 48.1 fl (35.1-43.9); Red Blood Count 4.58 M/mm3 (4.2-5.4); White Blood Count 18.2 K/mm3 (4.4-11.0)
[2022-05-21 08:16] LABS: Differential Indicated MANUAL DIFF
[2022-05-21 08:31] LABS: International Normalized Ratio 3.1; Prothrombin Time (Protime)PT. 31.3 SECONDS (11.7-14.9)
[2022-05-21 08:38] LABS: Anion Gap 9 (5-15); BUN 28 mg/dL (7-18); BUN/Creat Ratio 25.9 RATIO (10-20); Calcium,Total 8.2 mg/dL (8.5-10.1); Chloride 101 mmol/L (98-107); Creatinine, Serum 1.08 mg/dL (0.55-1.02); EST Glomerular Filtration Rate 52 mL/min (>60); Est Glom Filt Rate - Afr Amer 62 mL/min (>60); Estimated Creatinine Clearance 34.68 ml/min; Glucose 141 mg/dL (74-106); Potassium 3.9 mmol/L (3.5-5.1); Sodium Level 134 mmol/L (136-145)
--- NOTE | 2022-05-21 08:47 | PCM.CONS.U ---
HPI Consult Data Date of Consult: 05/21/22 HPI Narrative Reason for Consultation: Follow-up after stent placement HPI Narrative: NITISH MOLINA, is a 82 F who presented with appear to be sepsis and bacteremia she had E. coli positive from the blood probably from the urine as well she underwent cystoscopy and stent placement for an obstructing stone in the left proximal ureter. Once she is medically stabilized then she can follow-up in my office will plan for treatment of the stone at a later setting we will can plan for shockwave lithotripsy in about 2 weeks. At this point she is also has atrial fibrillation. If she okay to go on anticoagulation per medical protocol but may have to hold the anticoagulation later on for treatment of the kidney stone call me with questions. [facility] Medical History Atrial fibrillation COVID-19 virus infection Depression Hypertension Hypothyroidism Home Medications benazepril 10 mg tablet 10 mg PO DAILY 02/15/22 [History Last Taken 05/15/22] levothyroxine 150 mcg tablet 150 mcg PO DAILY THYROID 02/15/22 [History Last Taken 05/15/22] trazodone 50 mg tablet 50 mg PO QHS SLEEP 02/15/22 [History Last Taken 05/16/22] warfarin 4 mg tablet 4 mg PO DAILY AFIB 02/15/22 [History Last Taken 05/16/22] citalopram 20 mg tablet 20 mg PO DAILY DEPRESSION 05/18/22 [History Last Taken 05/15/22] furosemide 20 mg tablet 20 mg PO TUTHSA 05/18/22 [History Last Taken 05/04/22] metoprolol tartrate 25 mg tablet 12.5 mg PO BID AFIB 05/18/22 [History Last Taken 05/15/22] milk thistle 500 mg capsule 500 mg PO DAILY SUPPLEMENT 05/18/22 [History Last Taken 05/04/22] quercetin 500 mg capsule 500 mg PO DAILY SUPPLEMENT 05/18/22 [History Last Taken 05/04/22] Allergy/AdvReac Type Severity Reaction Status Date / Time No Known Allergies Allergy Verified 05/18/22 09:31 Surgical History History of appendectomy History of cholecystectomy Social History household members: none Smoking Status: Former smoker substance use type: does not use Medical Records Data Medical Nutrition Assessment Dietitian: Malnutrition Criteria Met Start: 05/18/22 16:07 Freq: Status: Active Protocol: Document 05/18/22 16:07 [email or web address] (Rec: 05/18/22 16:08 AG [id number]) Nutrition Malnutrition Evidence of Malnutrition Exists Yes Malnutrition (severe): Acute Illness/Injury Evidenced By Suboptimal Energy Intake ( Severe),Weight Loss (Severe) Clinical Problem Acute Disease or Injury Related Malnutrition Etiology severe, acute malnutrition related to inadequate energy intake d/t nausea, acute COVID illness Signs/Symptoms as evidenced by reported unintentional wt loss of 13.6# /5% x 1 week and reported estimated PO intake meeting < 50% of estimated energy needs x 1 week Status Active Problem Recommendation Dietitian Recommendations/Changes continue cardiac diet as tolerated; will consider liberalizing to regular if PO intake does not improve. Will continue ensure plus high protein 120mL 4x/day as ordered until PO intake at meals improves. Lab / Micro Data Result Diagrams: 05/21/22 07:53 05/21/22 07:53 Labs: Laboratory Results - last 24 hr 05/21/22 07:53: WBC 18.2 H, RBC 4.58, Hgb 13.4, Hct 42.0, MCV 91.7, MCH 29.3, MCHC 31.9 L D, RDW Std Deviation 48.1 H, RDW Coeff of Henry 14.4, Plt Count 229, MPV 10.3, Neut % (Auto) Not Reportable 05/21/22 07:53: Sodium 134 L, Potassium 3.9, Chloride 101, Carbon Dioxide 24.0, Anion Gap 9, BUN 28 H, Creatinine 1.08 H, Estim Creat Clear Calc 34.68, Est GFR (MDRD) Af Amer 62, Est GFR (MDRD) Non-Af 52 L, BUN/Creatinine Ratio 25.9 H, Glucose 141 H, Calcium 8.2 L 05/21/22 07:53: PT 31.3 H, INR 3.1 Micro: Microbiology 05/18/22 11:50 Blood Culture (Wb) - Left Hand Blood Culture - Final GNR lactose solution sales senior executive 05/18/22 11:38 Blood Culture (Wb) - Anticubital Left Blood Culture - Final Escherichia coli Rhythm Strip Rhythm Strip: A-fib (Rate of 148 with wide complexes which may represent aberrant beats versus premature ventricular beats) Rate: 148
[2022-05-21 09:22] LABS: Eosinophil 2 % (0-5); Lymphocyte 7 % (19-41); Metamyelocyte 5 % (0-1); Monocyte 13 % (0-10); Myelocyte 1 % (0-0); Neutrophil-Segmented 72 % (47-70); Platelet Estimate ADEQUATE (ADEQ); Total Cells Counted 100 (MANUAL DIFF)
[2022-05-21 09:23] LABS: Absolute Lymphocyte Count 1.28 X10^3/uL (0.83-4.51); Absolute Neutrophil Count 13.1 X10^3/uL (2.0-7.7)
[2022-05-21 09:31] LABS: Red Cell Morphology NORM C+C NORMAL (NORM C&C)
[2022-05-21] MEDS: dilTIAZem CD 180 MG Capsule PO ×2 (09:47→20:53)
[2022-05-21] MEDS: Aspirin E.C. 81 MG Tablet PO (09:47)
[2022-05-21] MEDS: Metoprolol Tartrate 50 MG Tablet PO (09:47)
[2022-05-21] MEDS: Ceftriaxone 1 GM/50 ML BAG IV (09:47)
--- NOTE | 2022-05-21 11:40 | PCM.PN.HOSP ---
Subjective Subjective Follow-up for A. fib with RVR, UTI E. coli ESBL negative. Objective Data Objective Data Vital Signs: Vital Signs Temp Pulse Resp BP Pulse Ox O2 Del Method O2 Flow Rate 98.0 F 99 16 140/87 H 94 Room Air 2 05/21/22 09:43 05/21/22 09:47 05/21/22 09:43 05/21/22 09:47 05/21/22 09:43 05/21/22 09:43 05/19/22 14:45 Oxygen Flow Rate (L/min) 2 Oxygen Delivery Method Room Air Weight: 270 lb 4.587 oz Body Mass Index (BMI) 43.9 Intake & Output: Intake and Output for Last 24 Hours 05/19/22 05/20/22 05/21/22 23:59 23:59 23:59 Intake Total 1810 / 1810 1590 / 1590 967 / 967 Output Total 250 / 250 Balance 1560 / 1560 1590 / 1590 967 / 967 Medical Nutrition Assessment Dietitian: Malnutrition Criteria Met Start: 05/18/22 16:07 Freq: Status: Active Protocol: Document 05/18/22 16:07 AG (Rec: 05/18/22 16:08 [id number]) Nutrition Malnutrition Evidence of Malnutrition Exists Yes Malnutrition (severe): Acute Illness/Injury Evidenced By Suboptimal Energy Intake ( Severe),Weight Loss (Severe) Clinical Problem Acute Disease or Injury Related Malnutrition Etiology severe, acute malnutrition related to inadequate energy intake d/t nausea, acute COVID illness Signs/Symptoms as evidenced by reported unintentional wt loss of 13.6# /5% x 1 week and reported estimated PO intake meeting < 50% of estimated energy needs x 1 week Status Active Problem Recommendation Dietitian Recommendations/Changes continue cardiac diet as tolerated; will consider liberalizing to regular if PO intake does not improve. Will continue ensure plus high protein 120mL 4x/day as ordered until PO intake at meals improves. Lab / Micro Data Result Diagrams: 05/21/22 07:53 05/21/22 07:53 Labs: Laboratory Results - last 24 hr 05/21/22 07:53: WBC 18.2 H, RBC 4.58, Hgb 13.4, Hct 42.0, MCV 91.7, MCH 29.3, MCHC 31.9 L D, RDW Std Deviation 48.1 H, RDW Coeff of Henry 14.4, Plt Count 229, MPV 10.3, Neut % (Auto) Not Reportable, Absolute Neuts (auto) 13.1 H, Absolute Lymphs (auto) 1.28, Total Counted 100, Neutrophils % (Manual) 72 H, Lymphocytes % (Manual) 7 L, Monocytes % (Manual) 13 H, Eosinophils % (Manual) 2, Metamyelocytes % 5 H, Myelocytes % 1 H, Diff Path Review May , Platelet Estimate ADEQUATE, RBC Morphology NORM C+C 05/21/22 07:53: Sodium 134 L, Potassium 3.9, Chloride 101, Carbon Dioxide 24.0, Anion Gap 9, BUN 28 H, Creatinine 1.08 H, Estim Creat Clear Calc 34.68, Est GFR (MDRD) Af Amer 62, Est GFR (MDRD) Non-Af 52 L, BUN/Creatinine Ratio 25.9 H, Glucose 141 H, Calcium 8.2 L 05/21/22 07:53: PT 31.3 H, INR 3.1 Micro: Microbiology 05/18/22 10:45 Urine, Clean Catch Urine Culture - Preliminary Culture exhibits no growth. 05/18/22 11:50 Blood Culture (Wb) - Left Hand Blood Culture - Final GNR lactose chlorinator operator 05/18/22 11:38 Blood Culture (Wb) - Anticubital Left Blood Culture - Final Escherichia coli Rhythm Strip Rhythm Strip: A-fib (Rate of 148 with wide complexes which may represent aberrant beats versus premature ventricular beats) Rate: 148 Physical Exam Narrative Patient is still in A. fib, heart rate 90s. Lower abdominal pain has resolved. No chest pain or shortness of breath. Physical exam General: Alert, Oriented x3, Cooperative, morbid obesity BMI 45.9 kg/m? HEENT: Atraumatic, PERRLA, EOMI, Normocephalic Oral: Oral mucosa moist. No Gingival or Mucosal Lesions/ Ulcerations Neck: Supple, No JVD, Negative Carotid Bruits Lungs: Air entry diminished in bilateral lung bases. No crepitation/rhonchi. No hypoxia. No chest wall tenderness. Cardiovascular: A. fib, heart rate better controlled. Normal S1, Normal S2, No murmurs Abdomen: Fat pendulous abdomen. No tenderness. Bowel Sounds Present, nondistended : No renal angle tenderness. No suprapubic tenderness. Extremities: Mild bilateral chronic ankle edema, Capillary Refill Less than 3 Seconds Skin: No rashes, No breakdown Musculoskeletal: No Tenderness to Palpation of Joints or Extremities. Needs 2 people assist to stand up. ROM restricted. Muscle strength 4+/5 at knees and hip joints Neurological: Cranial nerves II-XII grossly intact, DTR 2+/4 and Symmetrical, Neuro grossly intact Psych/Mental Status: Flat affect. Assessment & Plan Assessment/Plan (1) Atrial fibrillation with rapid ventricular response: (2) Left ureteral calculus: PLAN: Plan This is a 82-year-old female is being admitted to PCU for mild shortness of breath, left-sided chest pain, abdominal pain with A. fib with RVR 1. UTI most likely due to left ureteric calculi and borderline hydronephrosis: Patient is being admitted to PCU. CT abdomen reviewed with the urologist Dr. Gutierrez. Patient has 8 mm partially obstructing stone in left proximal ureter with borderline left hydronephrosis. 4 mm tubular nonobstructing calculi in left lower renal infundibula. Mild right renal atrophy. Patient has leukocytosis. Patient does not look toxic but has low-grade fever 99.7 Fahrenheit.Patient is not hypotensive but blood pressure went down after giving IV metoprolol 5 mg x 2. Patient has leukocytosis but lactic acid normal. Liver chemistry pending. Overall I have very low probability for sepsis. IV fluid Ringer lactate 1 L ordered. IV ceftriaxone 1 g daily. IV fluid normal saline. Urologist consulted. 05/19: Urologist consult reviewed and discussed with him. Blood cultures x2 growing gram-negative rods. Urine culture pending. Continue IV ceftriaxone. No fever. Plan for cystoscopy and left retrograde stent. Leukocytosis has improved. Mild hypokalemia, potassium is getting replaced. 05/21: Blood cultures x2 shows gram-negative jeffy E. coli, ESBL negative. Urine culture though negative for probably the last taken after IV antibiotic. Continue IV ceftriaxone. 2. Paroxysmal A. fib RVR: Twelve-lead EKG in ED shows A. fib with RVR with PVCs, nonischemic ST-T changes. Heart rate 146/min. Previous EKG on 15 February 2022 shows normal sinus rhythm 67, QTc 433 ms. I think A. fib with RVR precipitated from infection/UTI. INR 1.8. Patient had therapeutic dose of Lovenox in ED. Warfarin dose increased to 5 mg daily. Troponin one-time elevated 77. Cycle troponin. 05/19: Patient has low-grade left-sided chest pain unclear but seems mainly positional/musculoskeletal as troponins were borderline elevated 64, 77 and 77. Does not seem to be having GA but may be acute myocardial injury from A. fib with RVR. Recommend outpatient stress test after 2 weeks from discharge on her baseline health. INR 2.2. I will decrease the warfarin to 4 mg daily. 05/21: telemetry monitor shows A. fib heart rate 90s to low 100. Metoprolol dose increased to 75 mg twice daily. Patient on Cardizem CD 180 mg twice daily continued. INR 3.1. Decrease warfarin to 3 mg daily.Fasting profile shows triglyceride 246, LDL 48, VLDL 49. Tricor 48 mg started. 3. Recent COVID 19 infection: Patient is on intensity of COVID infection. Does not have URI symptoms.Patient not hypoxic. Mild tachypneic but respiratory rate is better. Does not qualify for treatment including steroid remdesivir or baricitinib. Chest x-ray individually reviewed does not show acute change. 4.Hypothyroidism: BNP is normal. TSH is high. 05/19: Free T4 tomorrow 1.16. Patient on levothyroxine 150 mcg daily. I would not increase it as it will further increase RVR. TSH is mildly elevated 4.31 5. RAJESH since admission:Patient admitting creatinine 2.22, improved to 1.51. Her baseline is 0.76 on February 2022. Continue IV fluid. Hold nephrotoxic medications. Patient has documented 3 L of positive fluid balance. 05/21: Creatinine improved to 1.08 patient's baseline. Discontinue IV fluid. 5. Other comorbidities include hypertension, depression: Home medication reconciliation done. We will hold antihypertensive medication for now Patient needs pre-CERT. Continue above medications. Living will/advanced directive/end of life care: Patient does DNR CC arrest and she is very clear in her thought process have living will or advanced directive. After discussion of benefits/risks procedures involved with full code, DNR CC arrest and DNR CC, the patient opted for DNRCC arrest with no intubation and she is very clear in her thought process. Patient doesn't want artificial life support including intubation, tube feed, ventilator and/chest compression, central venous catheter, vasopressor and DC shock if needed Microbiology Past 72 Hours 05/18/22 10:45 Urine, Clean Catch Urine Culture - Preliminary Culture exhibits no growth. 05/18/22 11:50 Blood Culture (Wb) - Left Hand Blood Culture - Final GNR lactose chlorinator operator 05/18/22 11:38 Blood Culture (Wb) - Anticubital Left Blood Culture - Final Escherichia coli Laboratory Results 05/21/22 07:53: WBC 18.2 H, RBC 4.58, Hgb 13.4, Hct 42.0, MCV 91.7, MCH 29.3, MCHC 31.9 L D, RDW Std Deviation 48.1 H, RDW Coeff of Henry 14.4, Plt Count 229, MPV 10.3, Neut % (Auto) Not Reportable, Absolute Neuts (auto) 13.1 H, Absolute Lymphs (auto) 1.28, Total Counted 100, Neutrophils % (Manual) 72 H, Lymphocytes % (Manual) 7 L, Monocytes % (Manual) 13 H, Eosinophils % (Manual) 2, Metamyelocytes % 5 H, Myelocytes % 1 H, Diff Path Review May foll, Platelet Estimate ADEQUATE, RBC Morphology NORM C+C 05/21/22 07:53: Sodium 134 L, Potassium 3.9, Chloride 101, Carbon Dioxide 24.0, Anion Gap 9, BUN 28 H, Creatinine 1.08 H, Estim Creat Clear Calc 34.68, Est GFR (MDRD) Af Amer 62, Est GFR (MDRD) Non-Af 52 L, BUN/Creatinine Ratio 25.9 H, Glucose 141 H, Calcium 8.2 L 05/21/22 07:53: PT 31.3 H, INR 3.1 Charges/Coding Visit Charges Inpatient E&M: 22722 Subs Hosp L2
[2022-05-21] MEDS: Fenofibrate 48 MG Tablet PO (13:26)
[2022-05-21] MEDS: Metoprolol Tartrate 25 MG Tablet PO (13:26)
[2022-05-21] MEDS: Ensure Plus High Protein 120 ML LIQUID PO ×2 (18:05→20:55)
[2022-05-21] MEDS: Metoprolol Tartrate 25 MG Tablet 75 MG PO (20:53)
[2022-05-22] VITALS (9 sets, daily range): BP systolic 110–170; BP diastolic 72–99; PULSE 65–108; RESP 15–18; TEMP 36.4–36.8; O2SAT 95–97
[2022-05-22] MEDS: Levothyroxine 150 MCG Tablet PO (03:23)
[2022-05-22 08:17] LABS: International Normalized Ratio 3.2; Prothrombin Time (Protime)PT. 32.3 SECONDS (11.7-14.9)
[2022-05-22] MEDS: Ceftriaxone 1 GM/50 ML BAG IV (09:16)
[2022-05-22] MEDS: Metoprolol Tartrate 25 MG Tablet 75 MG PO (09:17)
[2022-05-22] MEDS: dilTIAZem CD 180 MG Capsule PO ×2 (09:19→21:08)
[2022-05-22] MEDS: Menthol/Lanolin/Calamine/Znox 113 GM Tube 1 APPLIC TOPICAL (09:19)
[2022-05-22] MEDS: Fenofibrate 48 MG Tablet PO (09:20)
[2022-05-22] MEDS: Aspirin E.C. 81 MG Tablet PO (09:20)
--- NOTE | 2022-05-22 09:35 | PCM.PN.HOSP ---
Subjective Subjective Follow-up for Rizwana adams with RVR, UTI, bacteremia, generalized debility and needs SNF. Objective Data Objective Data Vital Signs: Vital Signs Temp Pulse Resp BP Pulse Ox O2 Del Method O2 Flow Rate 97.6 F L 91 16 122/72 H 95 Room Air 2 05/22/22 09:13 05/22/22 09:17 05/22/22 09:13 05/22/22 09:17 05/22/22 09:13 05/22/22 09:13 05/19/22 14:45 Oxygen Flow Rate (L/min) 2 Oxygen Delivery Method Room Air Weight: 270 lb 4.587 oz Body Mass Index (BMI) 43.9 Intake & Output: Intake and Output for Last 24 Hours 05/20/22 05/21/22 05/22/22 23:59 23:59 23:59 Intake Total 1590 / 1590 2343 / 2343 Balance 1590 / 1590 2343 / 2343 Medical Nutrition Assessment Dietitian: Malnutrition Criteria Met Start: 05/18/22 16:07 Freq: Status: Active Protocol: Document 05/18/22 16:07 AG (Rec: 05/18/22 16:08 [id number]) Nutrition Malnutrition Evidence of Malnutrition Exists Yes Malnutrition (severe): Acute Illness/Injury Evidenced By Suboptimal Energy Intake ( Severe),Weight Loss (Severe) Clinical Problem Acute Disease or Injury Related Malnutrition Etiology severe, acute malnutrition related to inadequate energy intake d/t nausea, acute COVID illness Signs/Symptoms as evidenced by reported unintentional wt loss of 13.6# /5% x 1 week and reported estimated PO intake meeting < 50% of estimated energy needs x 1 week Status Active Problem Recommendation Dietitian Recommendations/Changes continue cardiac diet as tolerated; will consider liberalizing to regular if PO intake does not improve. Will continue ensure plus high protein 120mL 4x/day as ordered until PO intake at meals improves. Lab / Micro Data Result Diagrams: 05/21/22 07:53 05/21/22 07:53 Labs: Laboratory Results - last 24 hr 05/22/22 07:13: PT 32.3 H, INR 3.2 Micro: Microbiology 05/18/22 10:45 Urine, Clean Catch Urine Culture - Final Culture exhibits no growth. 05/18/22 11:50 Blood Culture (Wb) - Left Hand Blood Culture - Final GNR lactose sales representative supervisor 05/18/22 11:38 Blood Culture (Wb) - Anticubital Left Blood Culture - Final Escherichia coli Rhythm Strip Rhythm Strip: A-fib (Rate of 148 with wide complexes which may represent aberrant beats versus premature ventricular beats) Rate: 148 Physical Exam Narrative Patient is still in A. fib, heart rate 90s to low 100s. Lower abdominal pain has resolved. No chest pain or shortness of breath. Physical exam General: Alert, Oriented x3, Cooperative, morbid obesity BMI 45.9 kg/m? HEENT: Atraumatic, PERRLA, EOMI, Normocephalic Oral: Oral mucosa moist. No Gingival or Mucosal Lesions/ Ulcerations Neck: Supple, No JVD, Negative Carotid Bruits Lungs: Air entry diminished in bilateral lung bases. No crepitation/rhonchi. No hypoxia. No chest wall tenderness. Cardiovascular: A. fib, heart rate better controlled. Normal S1, Normal S2, No murmurs Abdomen: Fat pendulous abdomen. No tenderness. Bowel Sounds Present, nondistended : No renal angle tenderness. No suprapubic tenderness. Extremities: Mild bilateral chronic ankle edema, improving. Capillary Refill Less than 3 Seconds Skin: No rashes, No breakdown Musculoskeletal: No Tenderness to Palpation of Joints or Extremities. Needs 2 people assist to stand up. ROM restricted. Muscle strength 4+/5 at knees and hip joints Neurological: Cranial nerves II-XII grossly intact, DTR 2+/4 and Symmetrical, Neuro grossly intact Psych/Mental Status: Flat affect. Assessment & Plan Assessment/Plan (1) Atrial fibrillation with rapid ventricular response: (2) Left ureteral calculus: PLAN: Plan This is a 82-year-old female is being admitted to PCU for mild shortness of breath, left-sided chest pain, abdominal pain with A. fib with RVR 1. UTI most likely due to left ureteric calculi and borderline hydronephrosis: Patient is being admitted to PCU. CT abdomen reviewed with the urologist Dr. Gutierrez. Patient has 8 mm partially obstructing stone in left proximal ureter with borderline left hydronephrosis. 4 mm tubular nonobstructing calculi in left lower renal infundibula. Mild right renal atrophy. Patient has leukocytosis. Patient does not look toxic but has low-grade fever 99.7 Fahrenheit.Patient is not hypotensive but blood pressure went down after giving IV metoprolol 5 mg x 2. Patient has leukocytosis but lactic acid normal. Liver chemistry pending. Overall I have very low probability for sepsis. IV fluid Ringer lactate 1 L ordered. IV ceftriaxone 1 g daily. IV fluid normal saline. Urologist consulted. 05/19: Urologist consult reviewed and discussed with him. Blood cultures x2 growing gram-negative rods. Urine culture pending. Continue IV ceftriaxone. No fever. Plan for cystoscopy and left retrograde stent. Leukocytosis has improved. Mild hypokalemia, potassium is getting replaced. 05/21: Blood cultures x2 shows gram-negative jeffy E. coli, ESBL negative. Urine culture though negative for probably the last taken after IV antibiotic. Continue IV ceftriaxone. 2. Paroxysmal A. fib RVR: Twelve-lead EKG in ED shows A. fib with RVR with PVCs, nonischemic ST-T changes. Heart rate 146/min. Previous EKG on 15 February 2022 shows normal sinus rhythm 67, QTc 433 ms. I think A. fib with RVR precipitated from infection/UTI. INR 1.8. Patient had therapeutic dose of Lovenox in ED. Warfarin dose increased to 5 mg daily. Troponin one-time elevated 77. Cycle troponin. 05/19: Patient has low-grade left-sided chest pain unclear but seems mainly positional/musculoskeletal as troponins were borderline elevated 64, 77 and 77. Does not seem to be having NM but may be acute myocardial injury from A. fib with RVR. Recommend outpatient stress test after 2 weeks from discharge on her baseline health. INR 2.2. I will decrease the warfarin to 4 mg daily. 05/21: youth nutritional monitor shows A. fib heart rate 90s to low 100. Metoprolol dose increased to 75 mg twice daily. Patient on Cardizem CD 180 mg twice daily continued. INR 3.1. Decrease warfarin to 3 mg daily.Fasting profile shows triglyceride 246, LDL 48, VLDL 49. Tricor 48 mg started. 05/24: Metoprolol dose increased 200 mg p.o. twice daily. Continue Cardizem. INR high therefore warfarin on hold. Monitor INR daily. 3. Recent COVID 19 infection: Patient is on intensity of COVID infection. Does not have URI symptoms.Patient not hypoxic. Mild tachypneic but respiratory rate is better. Does not qualify for treatment including steroid remdesivir or baricitinib. Chest x-ray individually reviewed does not show acute change. 4.Hypothyroidism: BNP is normal. TSH is high. 05/19: Free T4 tomorrow 1.16. Patient on levothyroxine 150 mcg daily. I would not increase it as it will further increase RVR. TSH is mildly elevated 4.31 5. RAJESH since admission:Patient admitting creatinine 2.22, improved to 1.51. Her baseline is 0.76 on February 2022. Continue IV fluid. Hold nephrotoxic medications. Patient has documented 3 L of positive fluid balance. 05/21: Creatinine improved to 1.08 patient's baseline. Discontinue IV fluid. 5. Other comorbidities include hypertension, depression: Home medication reconciliation done. We will hold antihypertensive medication for now Patient needs pre-CERT. Continue above medications. Living will/advanced directive/end of life care: Patient does DNR CC arrest and she is very clear in her thought process have living will or advanced directive. After discussion of benefits/risks procedures involved with full code, DNR CC arrest and DNR CC, the patient opted for DNRCC arrest with no intubation and she is very clear in her thought process. Patient doesn't want artificial life support including intubation, tube feed, ventilator and/chest compression, central venous catheter, vasopressor and DC shock if needed Disposition: Evaluation for SNF prefers TCU Microbiology Past 72 Hours 05/18/22 10:45 Urine, Clean Catch Urine Culture - Final Culture exhibits no growth. 05/18/22 11:50 Blood Culture (Wb) - Left Hand Blood Culture - Final GNR lactose sales representative supervisor 05/18/22 11:38 Blood Culture (Wb) - Anticubital Left Blood Culture - Final Escherichia coli Laboratory Results 05/22/22 07:13: PT 32.3 H, INR 3.2 Charges/Coding Visit Charges Inpatient E&M: 22572 Subs Hosp L2
[2022-05-22] MEDS: 0.45% Normal Saline 1,000 ML 60 ML IV (10:55)
[2022-05-22] MEDS: traZODone 50 MG Tablet PO (21:07)
[2022-05-22] MEDS: Ensure Plus High Protein 120 ML LIQUID PO (21:07)
[2022-05-22] MEDS: Metoprolol Tartrate 100 MG Tablet PO (21:08)
[2022-05-23] VITALS (8 sets, daily range): BP systolic 112–162; BP diastolic 20–120; PULSE 69–114; RESP 16–20; TEMP 36.3–36.9; O2SAT 95–99
[2022-05-23] MEDS: Levothyroxine 150 MCG Tablet PO (03:13)
[2022-05-23 06:45] LABS: International Normalized Ratio 2.4; Prothrombin Time (Protime)PT. 25.7 SECONDS (11.7-14.9)
[2022-05-23] MEDS: Ensure Plus High Protein 120 ML LIQUID PO (08:30)
[2022-05-23] MEDS: Aspirin E.C. 81 MG Tablet PO (08:30)
[2022-05-23] MEDS: dilTIAZem CD 180 MG Capsule PO ×2 (08:30→20:56)
[2022-05-23] MEDS: Fenofibrate 48 MG Tablet PO (08:30)
[2022-05-23] MEDS: Menthol/Lanolin/Calamine/Znox 113 GM Tube 1 APPLIC TOPICAL ×2 (08:31→20:56)
[2022-05-23] MEDS: Metoprolol Tartrate 100 MG Tablet PO ×2 (08:31→20:56)
[2022-05-23] MEDS: Ceftriaxone 1 GM/50 ML BAG IV (09:24)
[2022-05-23] MEDS: 0.9% Saline Lock 10 ML Syringe IV ×2 (09:27→20:57)
[2022-05-23 09:28] LABS: Pathologist Review Reviewed
[2022-05-23 13:33] LABS: Pathologist Review Reviewed
--- NOTE | 2022-05-23 15:44 | PN.HOSP_ITS ---
Subjective Subjective Doing well, no issues overnight Objective Data Objective Data Vital Signs: Vital Signs Temp Pulse Resp BP Pulse Ox O2 Del Method O2 Flow Rate 97.4 F L 76 18 115/69 98 Room Air 2 05/23/22 15:00 05/23/22 15:00 05/23/22 15:00 05/23/22 15:00 05/23/22 15:00 05/23/22 15:00 05/19/22 14:45 Oxygen Flow Rate (L/min) 2 Oxygen Delivery Method Room Air Weight: 256 lb 13.416 oz Body Mass Index (BMI) 43.9 Intake & Output: Intake and Output for Last 24 Hours 05/22/22 05/23/22 05/24/22 03:59 03:59 03:59 Intake Total 1426 / 1426 1761 / 1761 530 / 530 Balance 1426 / 1426 1761 / 1761 530 / 530 Medical Nutrition Assessment Dietitian: Malnutrition Criteria Met Start: 05/18/22 16:07 Freq: Status: Active Protocol: Document 05/23/22 12:24 RMA (Rec: 05/23/22 12:25 RMA [id number]) Nutrition Malnutrition Evidence of Malnutrition Exists Yes Malnutrition (severe): Acute Illness/Injury Evidenced By Suboptimal Energy Intake ( Severe),Weight Loss (Severe) Clinical Problem Acute Disease or Injury Related Malnutrition Etiology severe, acute malnutrition related to inadequate energy intake d/t nausea, acute COVID illness Signs/Symptoms as evidenced by reported unintentional wt loss of 13.6# /5% x 1 week and reported estimated PO intake meeting < 50% of estimated energy needs x 1 week Status Active Problem Recommendation Dietitian Recommendations/Changes Continue liberalized regular/ no added salt diet for now and encourage PO at meals. Will d/c ensure plus high protein with medpass. Lab / Micro Data Result Diagrams: 05/21/22 07:53 05/21/22 07:53 Labs: Laboratory Results - last 24 hr 05/19/22 06:30: Diff Path Review Reviewed 05/20/22 06:24: Diff Path Review Reviewed 05/23/22 05:54: PT 25.7 H, INR 2.4 Micro: Microbiology 05/18/22 10:45 Urine, Clean Catch Urine Culture - Final Culture exhibits no growth. 05/18/22 11:50 Blood Culture (Wb) - Left Hand Blood Culture - Final GNR lactose ct mri technologist 05/18/22 11:38 Blood Culture (Wb) - Anticubital Left Blood Culture - Final Escherichia coli Rhythm Strip Rhythm Strip: A-fib (Rate of 148 with wide complexes which may represent aberrant beats versus premature ventricular beats) Rate: 148 Physical Exam Const alert, oriented x3 and no apparent distress General Appearance: cooperative HEENT normocephalic and moist oral mucous membranes Eyes PERRL, EOMs intact bilaterally and conjunctivae normal Neck supple and no JVD Resp normal respiratory effort, no retractions, no use of accessory muscles and clear to auscultation bilaterally Auscultation: Negative for crackles, rales, rhonchi or wheezes Cardio regular rate, regular rhythm, S1 normal heart sound, S2 normal heart sound and no murmurs GI soft to palpation, non-tender and non-distended; Negative for hepatosplenomegaly Extremity General Extremity: edema Skin no rashes or lesions noted Neuro no focal motor deficits and no sensory deficits noted Psych Appearance: appropriate Mood & Affect: flat affect Assessment & Plan Assessment/Plan (1) Atrial fibrillation with rapid ventricular response: (2) Left ureteral calculus: PLAN: Plan 1. UTI most likely due to left ureteric calculi and borderline hydronephrosis: Patient is being admitted to PCU. CT abdomen reviewed with the urologist Dr. Gutierrez. Patient has 8 mm partially obstructing stone in left proximal ureter with borderline left hydronephrosis. 4 mm tubular nonobstructing calculi in left lower renal infundibula. Mild right renal atrophy. Patient has leukocytosis. Patient does not look toxic but has low-grade fever 99.7 Fahrenheit.Patient is not hypotensive but blood pressure went down after giving IV metoprolol 5 mg x 2. Patient has leukocytosis but lactic acid normal. Liver chemistry pending. Overall I have very low probability for sepsis. IV fluid Ringer lactate 1 L ordered. IV ceftriaxone 1 g daily. IV fluid normal saline. Urologist consulted. 05/19: Urologist consult reviewed and discussed with him. Blood cultures x2 growing gram-negative rods. Urine culture pending. Continue IV ceftriaxone. No fever. Plan for cystoscopy and left retrograde stent. Leukocytosis has improved. Mild hypokalemia, potassium is getting replaced. 05/21: Blood cultures x2 shows gram-negative jeffy E. coli, ESBL negative. Urine culture is negative however this is likely due to the fact that it was obtained after the first dose of IV antibiotics 2. Paroxysmal A. fib RVR: Twelve-lead EKG in ED shows A. fib with RVR with PVCs, nonischemic ST-T changes. Heart rate 146/min. Previous EKG on 15 February 2022 shows normal sinus rhythm 67, QTc 433 ms. I think A. fib with RVR precipitated from infection/UTI. INR 1.8. Patient had therapeutic dose of Lovenox in ED. Warfarin dose increased to 5 mg daily. Troponin one-time elevated 77. Cycle troponin. 05/19: Patient has low-grade left-sided chest pain unclear but seems mainly positional/musculoskeletal as troponins were borderline elevated 64, 77 and 77. Does not seem to be having [place] but may be acute myocardial injury from A. fib with RVR. Recommend outpatient stress test after 2 weeks from discharge on her baseline health. INR 2.2. I will decrease the warfarin to 4 mg daily. 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 Metoprolol dose increased to 75 mg twice daily. Patient on Cardizem CD 180 mg twice daily continued. INR 3.1. Decrease warfarin to 3 mg daily.Fasting profile shows triglyceride 246, LDL 48, VLDL 49. Tricor 48 mg started. 05/22: Metoprolol dose increased 200 mg p.o. twice daily. Continue Cardizem. INR high therefore warfarin on hold. Monitor INR daily. 05/23: Heart rate is well controlled on the increased metoprolol dose as well as Cardizem, INR is 2.4 we will recheck in the morning 3. Recent COVID 19 infection: Patient is on intensity of COVID infection. Does not have URI symptoms.Patient not hypoxic. Mild tachypneic but respiratory rate is better. Does not qualify for treatment including steroid remdesivir or baricitinib. Chest x-ray individually reviewed does not show acute change. 4.Hypothyroidism: BNP is normal. TSH is high. 05/19: Free T4 tomorrow 1.16. Patient on levothyroxine 150 mcg daily. I would not increase it as it will further increase RVR. TSH is mildly elevated 4.31 5. RAJESH since admission:Patient admitting creatinine 2.22, improved to 1.51. Her baseline is 0.76 on February 2022. Continue IV fluid. Hold nephrotoxic medications. Patient has documented 3 L of positive fluid balance. 05/21: Creatinine improved to 1.08 patient's baseline. Discontinue IV fluid. 6. Other comorbidities include hypertension, depression: Home medication reconciliation done. We will hold antihypertensive medication for now Patient needs pre-CERT. Continue above medications. DVT: Coumadin Charges/Coding Visit Charges Inpatient E&M: 17187 Subs Hosp L2
[2022-05-23] MEDS: traZODone 50 MG Tablet PO (20:57)
[2022-05-24 05:31] VITALS: BP 150/90; PULSE 106; RESP 18; TEMP 36.7; O2SAT 95
[2022-05-24] MEDS: Levothyroxine 150 MCG Tablet PO (05:35)
[2022-05-24 07:01] LABS: Absolute Lymphocyte Count 1.82 X10^3/uL (0.83-4.51); Absolute Neutrophil Count 15.2 X10^3/uL (2.0-7.7); Basophil# 0.07 X10^3/uL; Basophil% 0.4 % (0-1); Eosinophil# 0.12 X10^3/uL; Eosinophils% 0.6 % (0-5); Hematocrit 37.5 % (37-47); Hemoglobin 12.2 g/dL (12.0-15.0); Lymphocyte # 1.82 X10^3/ul (0.83-4.51); Lymphocyte % 9.6 % (19-41); Mean Corp Hgb Conc 32.5 g/dL (32-36); Mean Corpuscular Hgb 29.3 pg (27.0-32.0); Mean Corpuscular Volume 89.9 fL (81-99); Mean Platelet Vol. 9.8 fl (6.2-12.0); Monocyte# 1.14 X10^3/uL; NRBC Flagged by Analyzer 0 % (0-5); Neutrophil # 15.15 X10^3/uL (2.7-7.7); Neutrophil % 79.9 % (47-70); Platelet Count 346 K/mm3 (150-450); RBC Distribution Width CV 14.4 % (11.6-14.6); RBC Distribution Width SD 46.9 fl (35.1-43.9); Red Blood Count 4.17 M/mm3 (4.2-5.4)
[2022-05-24 07:20] LABS: International Normalized Ratio 1.9; Prothrombin Time (Protime)PT. 21.1 SECONDS (11.7-14.9)
[2022-05-24 07:40] LABS: Anion Gap 7 (5-15); BUN 21 mg/dL (7-18); BUN/Creat Ratio 22.7 RATIO (10-20); Calcium,Total 8.4 mg/dL (8.5-10.1); Chloride 103 mmol/L (98-107); Creatinine, Serum 0.92 mg/dL (0.55-1.02); EST Glomerular Filtration Rate 62 mL/min (>60); Est Glom Filt Rate - Afr Amer 75 mL/min (>60); Estimated Creatinine Clearance 40.71 ml/min; Glucose 157 mg/dL (74-106); Potassium 4.5 mmol/L (3.5-5.1); Sodium Level 137 mmol/L (136-145)
[2022-05-24 08:08] VITALS: BP 142/98; PULSE 113
[2022-05-24] MEDS: Metoprolol Tartrate 100 MG Tablet PO (08:08)
[2022-05-24] MEDS: Fenofibrate 48 MG Tablet PO (08:08)
[2022-05-24] MEDS: dilTIAZem CD 180 MG Capsule PO (08:08)
[2022-05-24] MEDS: Aspirin E.C. 81 MG Tablet PO (08:09)
[2022-05-24] MEDS: Ceftriaxone 1 GM/50 ML BAG IV (09:14)
[2022-05-24 09:21] LABS: Pathologist Review Reviewed
[2022-05-24 11:27] VITALS: BP 125/89; PULSE 98; RESP 18; TEMP 36.6; O2SAT 97
--- NOTE | 2022-05-24 13:56 | PN.HOSP_ITS ---
Subjective Subjective Doing well, no issues overnight. She does have slight abdominal pain and that is different from her kidney stone. She says that she has been eating well and has not been having any issues with constipation. Objective Data Objective Data Vital Signs: Vital Signs Temp Pulse Resp BP Pulse Ox O2 Del Method O2 Flow Rate 97.9 F 98 18 125/89 H 97 Room Air 2 05/24/22 11:27 05/24/22 11:27 05/24/22 11:27 05/24/22 11:27 05/24/22 11:27 05/24/22 11:27 05/19/22 14:45 Oxygen Flow Rate (L/min) 2 Oxygen Delivery Method Room Air Weight: 256 lb 6.362 oz Body Mass Index (BMI) 43.9 Intake & Output: Intake and Output for Last 24 Hours 05/23/22 05/24/22 05/25/22 03:59 03:59 03:59 Intake Total 1761 / 1761 1160 / 1160 530 / 530 Balance 1761 / 1761 1160 / 1160 530 / 530 Medical Nutrition Assessment Dietitian: Malnutrition Criteria Met Start: 05/18/22 16:07 Freq: Status: Active Protocol: Document 05/23/22 12:24 RMA (Rec: 05/23/22 12:25 RMA [id number]) Nutrition Malnutrition Evidence of Malnutrition Exists Yes Malnutrition (severe): Acute Illness/Injury Evidenced By Suboptimal Energy Intake ( Severe),Weight Loss (Severe) Clinical Problem Acute Disease or Injury Related Malnutrition Etiology severe, acute malnutrition related to inadequate energy intake d/t nausea, acute COVID illness Signs/Symptoms as evidenced by reported unintentional wt loss of 13.6# /5% x 1 week and reported estimated PO intake meeting < 50% of estimated energy needs x 1 week Status Active Problem Recommendation Dietitian Recommendations/Changes Continue liberalized regular/ no added salt diet for now and encourage PO at meals. Will d/c ensure plus high protein with medpass. Lab / Micro Data Result Diagrams: 05/24/22 06:30 05/24/22 06:30 Labs: Laboratory Results - last 24 hr 05/21/22 07:53: Diff Path Review Reviewed 05/24/22 06:30: PT 21.1 H, INR 1.9 05/24/22 06:30: WBC 19.0 H, RBC 4.17 L, Hgb 12.2, Hct 37.5, MCV 89.9, MCH 29.3, MCHC 32.5, RDW Std Deviation 46.9 H, RDW Coeff of Henry 14.4, Plt Count 346, MPV 9.8, Immature Gran % (Auto) 3.500 H, Neut % (Auto) 79.9 H, Lymph % (Auto) 9.6 L, [place] % (Auto) 6.0, Eos % (Auto) 0.6, Baso % (Auto) 0.4, Absolute Neuts (auto) 15.2 H, Absolute Lymphs (auto) 1.82, Nucleated RBC % 0 05/24/22 06:30: Sodium 137, Potassium 4.5, Chloride 103, Carbon Dioxide 27.0, Anion Gap 7, BUN 21 H, Creatinine 0.92, Estim Creat Clear Calc 40.71, Est GFR (MDRD) Af Amer 75, Est GFR (MDRD) Non-Af 62, BUN/Creatinine Ratio 22.7 H, Glucose 157 H, Calcium 8.4 L Micro: Microbiology 05/18/22 10:45 Urine, Clean Catch Urine Culture - Final Culture exhibits no growth. 05/18/22 11:50 Blood Culture (Wb) - Left Hand Blood Culture - Final GNR lactose transmission supervisor 05/18/22 11:38 Blood Culture (Wb) - Anticubital Left Blood Culture - Final Escherichia coli Rhythm Strip Rhythm Strip: A-fib (Rate of 148 with wide complexes which may represent aberrant beats versus premature ventricular beats) Rate: 148 Physical Exam Narrative General: Alert, Oriented x3, Cooperative, No apparent distress HEENT: Atraumatic, PERRLA, EOMI, Normocephalic Oral: Moist Mucosa Neck: Supple, No JVD Lungs: Clear to auscultation, Normal air movement, No rhonchi, No wheeze, No rales Cardiovascular: Regular rate, Regular Rhythm, Normal S1, Normal S2, No murmurs Abdomen: Soft, Non Tender, Non-Distended, No Hepato-splenomegaly Extremities: Trace edema, Capillary Refill Less than 3 Seconds Skin: No rashes, No breakdown Musculoskeletal: No Tenderness to Palpation of Joints or Extremities Neurological: Cranial nerves II-XII grossly intact, Motor Exam 5/5 strength throughout, Sensory exam intact to light touch and pain Psych/Mental Status: Flat affect, Appropriate Assessment & Plan Assessment/Plan (1) Atrial fibrillation with rapid ventricular response: (2) Left ureteral calculus: PLAN: Plan 1. UTI most likely due to left ureteric calculi and borderline hydronephrosis: Patient is being admitted to PCU. CT abdomen reviewed with the urologist Dr. Gutierrez. Patient has 8 mm partially obstructing stone in left proximal ureter with borderline left hydronephrosis. 4 mm tubular nonobstructing calculi in left lower renal infundibula. Mild right renal atrophy. Patient has leukocytosis. Patient does not look toxic but has low-grade fever 99.7 Fahrenheit.Patient is not hypotensive but blood pressure went down after giving IV metoprolol 5 mg x 2. Patient has leukocytosis but lactic acid normal. Liver chemistry pending. Overall I have very low probability for sepsis. IV fluid Ringer lactate 1 L ordered. IV ceftriaxone 1 g daily. IV fluid normal saline. Urologist consulted. 05/19: Urologist consult reviewed and discussed with him. Blood cultures x2 growing gram-negative rods. Urine culture pending. Continue IV ceftriaxone. No fever. Plan for cystoscopy and left retrograde stent. Leukocytosis has improved. Mild hypokalemia, potassium is getting replaced. 05/21: Blood cultures x2 shows gram-negative jeffy E. coli, ESBL negative. Urine c ulture is negative however this is likely due to the fact that it was obtained after the first dose of IV antibiotics 05/24/2022: We will continue with her IV antibiotics, her leukocytosis continues to climb but there is no obvious source if it does continue to climb tomorrow may need to repeat imaging for better clarification, skin exam was unremarkable and no obvious signs of infection. She denies shortness of breath or cough with sputum production 2. Paroxysmal A. fib RVR: Twelve-lead EKG in ED shows A. fib with RVR with PVCs, nonischemic ST-T changes. Heart rate 146/min. Previous EKG on 15 February 2022 shows normal sinus rhythm 67, QTc 433 ms. I think A. fib with RVR precipitated from infection/UTI. INR 1.8. Patient had therapeutic dose of Lovenox in ED. Warfarin dose increased to 5 mg daily. Troponin one-time elevated 77. Cycle troponin. 05/19: Patient has low-grade left-sided chest pain unclear but seems mainly positional/musculoskeletal as troponins were borderline elevated 64, 77 and 77. Does not seem to be having [place] but may be acute myocardial injury from A. fib wi th RVR. Recommend outpatient stress test after 2 weeks from discharge on her baseline health. INR 2.2. I will decrease the warfarin to 4 mg daily. 05/21: traffic monitor specialist shows A. fib heart rate 90s to low 100. Metoprolol dose increased to 75 mg twice daily. Patient on Cardizem CD 180 mg twice daily continued. INR 3.1. Decrease warfarin to 3 mg daily.Fasting profile shows triglyceride 246, LDL 48, VLDL 49. Tricor 48 mg started. 05/22: Metoprolol dose increased 200 mg p.o. twice daily. Continue Cardizem. INR high therefore warfarin on hold. Monitor INR daily. 05/23: Heart rate is well controlled on the increased metoprolol dose as well as Cardizem, INR is 2.4 we will recheck in the morning 3. Recent COVID 19 infection: Patient is on intensity of COVID infection. Does not have URI symptoms.Patient not hypoxic. Mild tachypneic but respiratory rate is better. Does not qualify for treatment including steroid remdesivir or baricitinib. Chest x-ray individually reviewed does not show acute change. 4.Hypothyroidism: BNP is normal. TSH is high. 05/19: Free T4 tomorrow 1.16. Patient on levothyroxine 150 mcg daily. I would not increase it as it will further increase RVR. TSH is mildly elevated 4.31 5. RAJESH since admission:Patient admitting creatinine 2.22, improved to 1.51. Her baseline is 0.76 on February 2022. Continue IV fluid. Hold nephrotoxic medications. Patient has documented 3 L of positive fluid balance. 05/21: Creatinine improved to 1.08 patient's baseline. Discontinue IV fluid. 6. Other comorbidities include hypertension, depression: Home medication reconciliation done. We will hold antihypertensive medication for now Patient needs pre-CERT. Continue above medications. DVT: Coumadin Charges/Coding Visit Charges Inpatient E&M: 20435 Subs Hosp L2
--- NOTE | 2022-05-24 14:16 | CASEMGMT ---
SW spoke with patient and let her know we are still waiting on insurance. SW also explained that it is possible her insurance could deny assisted placement. SW asked patient if insurance does deny her would she be comfortable going home with home health. Patient said she would be okay as long as she had home health. Await insurance approval or denial for TCU. Lisbet Merlos MACHINE OILER JENNY
--- NOTE | 2022-05-24 14:38 | CASEMGMT ---
Patient was approved for TCU. SW notified patient, RN, physician, and psychology tech. Plan: d/c to [facility] TCU under skilled level of care. Lisbet ALVARADO
--- NOTE | 2022-05-24 14:51 | TREXTCAR_ITS ---
Diet Diet Order/Speech Therapy: 05/19/22 14:28 Diet: Regular - General Dietary Modifications:: No Added Salt Is pt able to select menu?: Yes Routine Orders/Code Status Routine Lab Work: CBC and BMP Wound(s) interior thighs: Wound Type: Abrasion Therapies Physical Therapy: Eval and Treat Occupational Therapy: Eval and Treat Problem/Diagnosis (1) Atrial fibrillation with rapid ventricular response: Status: Acute Code(s): I48.91 - Unspecified atrial fibrillation (2) Left ureteral calculus: Status: Acute Code(s): N20.1 - Calculus of ureter Plan 1. UTI most likely due to left ureteric calculi and borderline hydronephrosis: Patient is being admitted to PCU. CT abdomen reviewed with the urologist Dr. Gutierrez. Patient has 8 mm partially obstructing stone in left proximal ureter with borderline left hydronephrosis. 4 mm tubular nonobstructing calculi in left lower renal infundibula. Mild right renal atrophy. Patient has leukocytosis. Patient does not look toxic but has low-grade fever 99.7 Fahrenheit.Patient is not hypotensive but blood pressure went down after giving IV metoprolol 5 mg x 2. Patient has leukocytosis but lactic acid normal. Liver chemistry pending. Overall I have very low probability for sepsis. IV fluid Ringer lactate 1 L ordered. IV ceftriaxone 1 g daily. IV fluid normal saline. Urologist consulted. 05/19: Urologist consult reviewed and discussed with him. Blood cultures x2 growing gram-negative rods. Urine culture pending. Continue IV ceftriaxone. No fever. Plan for cystoscopy and left retrograde stent. Leukocytosis has improved. Mild hypokalemia, potassium is getting replaced. 05/21: Blood cultures x2 shows gram-negative jeffy E. coli, ESBL negative. Urine culture is negative however this is likely due to the fact that it was obtained after the first dose of IV antibiotics 05/24/2022: We will continue with her IV antibiotics, her leukocytosis continues to climb but there is no obvious source if it does continue to climb tomorrow may need to repeat imaging for better clarification, skin exam was unremarkable and no obvious signs of infection. She denies shortness of breath or cough with sputum production 2. Paroxysmal A. fib RVR: Twelve-lead EKG in ED shows A. fib with RVR with PVCs, nonischemic ST-T changes. Heart rate 146/min. Previous EKG on 15 February 2022 shows normal sinus rhythm 67, QTc 433 ms. I think A. fib with RVR precipitated from infection/UTI. INR 1.8. Patient had therapeutic dose of [place] enox in ED. Warfarin dose increased to 5 mg daily. Troponin one-time elevated 77. Cycle troponin. 05/19: Patient has low-grade left-sided chest pain unclear but seems mainly positional/musculoskeletal as troponins were borderline elevated 64, 77 and 77. Does not seem to be having [place] but may be acute myocardial injury from A. fib with RVR. Recommend outpatient stress test after 2 weeks from discharge on her baseline health. INR 2.2. I will decrease the warfarin to 4 mg daily. 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 Metoprolol dose increased to 75 mg twice daily. Patient on Cardizem CD 180 mg twice daily continued. INR 3.1. Decrease warfarin to 3 mg daily.Fasting profile shows triglyceride 246, LDL 48, VLDL 49. Tricor 48 mg started. 05/22: Metoprolol dose increased 200 mg p.o. twice daily. Continue Cardizem. INR high therefore warfarin on hold. Monitor INR daily. 05/23: Heart rate is well controlled on the increased metoprolol dose as well as Cardizem, INR is 2.4 we will recheck in the morning 3. Recent COVID 19 infection: Patient is on intensity of COVID infection. Does not have URI symptoms.Patient not hypoxic. Mild tachypneic but respiratory rate is better. Does not qualify for treatment including steroid remdesivir or baricitinib. Chest x-ray individually reviewed does not show acute change. 4.Hypothyroidism: BNP is normal. TSH is high. 05/19: Free T4 tomorrow 1.16. Patient on levothyroxine 150 mcg daily. I would not increase it as it will further increase RVR. TSH is mildly elevated 4.31 5. RAJESH since admission:Patient admitting creatinine 2.22, improved to 1.51. Her baseline is 0.76 on February 2022. Continue IV fluid. Hold nephrotoxic medications. Patient has documented 3 L of positive fluid balance. 05/21: Creatinine improved to 1.08 patient's baseline. Discontinue IV fluid. 6. Other comorbidities include hypertension, depression: Home medication reconciliation done. We will hold antihypertensive medication for now Patient needs pre-CERT. Continue above medications. DVT: Coumadin Allergies/Procedures Done in Hospital Allergies No Known Allergies Allergy (Verified 05/18/22 09:31) Procedures: 2-D Echocardiogram Type of Care/Length of Stay Estimated LOS: Convalescent Care Less Than 30 days Type of Care Needed: Skilled Rehab Potential: Good Prognosis: Good Additional Orders/Day of Discharge Day of Discharge: 05/24/22 Dietary and Speech Recommendations Dietitian Recommendations/Changes: Continue liberalized regular/no added salt diet for now and encourage PO at meals. Will d/c ensure plus high protein with medpass. Discharge Plan Admission Admit Date/Time: 05/18/22 11:49 Attending Provider: John Eduardo Primary Care Provider: Cory Santacruz Consulting Providers: Shar Gutierrez ; Zenon Muniz Discharge Orders/Prescriptions Prescriptions: New diltiazem HCl 180 mg Capsule,Extended Release 24hr 180 mg PO BID Qty: 0 0RF metoprolol tartrate 100 mg Tablet 100 mg PO BID Qty: 0 0RF sennosides-docusate sodium [Stool Softener-Stimulant Laxat] 8.6-50 mg Tablet 2 tab PO BID PRN PRN (Reason: Constipation) Qty: 0 0RF fenofibrate nanocrystallized 48 mg Tablet 48 mg PO DAILY Qty: 0 0RF cephalexin 500 mg capsule 500 mg PO Q6H 7 Days Qty: 28 0RF Continued trazodone 50 mg tablet 50 mg PO QHS Label Comments: TAKE 1 TABLET BY MOUTH EVERYDAY AT BEDTIME warfarin 4 mg tablet 4 mg PO DAILY levothyroxine 150 mcg tablet 150 mcg PO DAILY Label Comments: TAKE 1 TABLET BY MOUTH ONCE DAILY. TAKE ON EMPTY STOMACH. FOR THYROID. benazepril 10 mg tablet 10 mg PO DAILY Label Comments: TAKE 1 TABLET BY MOUTH EVERY DAY furosemide 20 mg tablet 20 mg PO TUTHSA Label Comments: TAKE 1 TABLET BY MOUTH THREE TIMES A WEEK. milk thistle 500 mg Capsule 500 mg PO DAILY Rx Instructions: give with meal/snack citalopram 20 mg tablet 20 mg PO DAILY Label Comments: TAKE 1 TABLET BY MOUTH EVERY DAY quercetin 500 mg Capsule 500 mg PO DAILY Discontinued metoprolol tartrate 25 mg tablet 12.5 mg PO BID Label Comments: TAKE 1/2 TABLET BY MOUTH TWICE DAILY Referrals / Follow Up: Cory Santacruz MD [Primary Care Provider] - Disposition Disposition (needs filled in before D/C Order can be placed): Custodial Facility
--- NOTE | 2022-05-24 15:53 | DS.PCM_ITS ---
Providers Date of Admission: 05/18/22 Primary Care Physician: Dr. Cory Santacruz MD Consultations 05/18/22 12:46 Consult: Urology Routine Consulting Provider: Shar Gutierrez Reason for Consult: kidney stone EMERGENT Consult: No MD Notified: Yes Date Notified: 05/18/22 Time Notified: 12:46 Method of Notification: Verbal Reason For Visit: UTI, AFIV RVR Diagnosis Discharge Diagnosis (1) Atrial fibrillation with rapid ventricular response: Status: Acute Code(s): I48.91 - Unspecified atrial fibrillation (2) Left ureteral calculus: Status: Acute Code(s): N20.1 - Calculus of ureter Plan 1. UTI most likely due to left ureteric calculi and borderline hydronephrosis: Patient is being admitted to PCU. CT abdomen reviewed with the urologist Dr. Gutierrez. Patient has 8 mm partially obstructing stone in left proximal ureter with borderline left hydronephrosis. 4 mm tubular nonobstructing calculi in left lower renal infundibula. Mild right renal atrophy. Patient has leukocytosis. Patient does not look toxic but has low-grade fever 99.7 Fahrenheit.Patient is not hypotensive but blood pressure went down after giving IV metoprolol 5 mg x 2. Patient has leukocytosis but lactic acid normal. Liver chemistry pending. Overall I have very low probability for sepsis. IV fluid Ringer lactate 1 L ordered. IV ceftriaxone 1 g daily. IV fluid normal saline. Urologist consulted. 05/19: Urologist consult reviewed and discussed with him. Blood cultures x2 growing gram-negative rods. Urine culture pending. Continue IV ceftriaxone. No fever. Plan for cystoscopy and left retrograde stent. Leukocytosis has improved. Mild hypokalemia, potassium is getting replaced. 05/21: Blood cultures x2 shows gram-negative jeffy E. coli, ESBL negative. Urine culture is negative however this is likely due to the fact that it was obtained after the first dose of IV antibiotics 05/24/2022: We will continue with her IV antibiotics, her leukocytosis continues to climb but there is no obvious source if it does continue to climb tomorrow may need to repeat imaging for better clarification, skin exam was unremarkable and no obvious signs of infection. She denies shortness of breath or cough with sputum production 2. Paroxysmal A. fib RVR: Twelve-lead EKG in ED shows A. fib with RVR with PVCs, nonischemic ST-T changes. Heart rate 146/min. Previous EKG on 15 February 2022 shows normal sinus rhythm 67, QTc 433 ms. I think A. fib with RVR precipitated from infection/UTI. INR 1.8. Patient had therapeutic dose of Lovenox in ED. Warfarin dose increased to 5 mg daily. Troponin one-time elevated 77. Cycle troponin. 05/19: Patient has low-grade left-sided chest pain unclear but seems mainly positional/musculoskeletal as troponins were borderline elevated 64, 77 and 77. Does not seem to be having TX but may be acute myocardial injury from A. fib with RVR. Recommend outpatient stress test after 2 weeks from discharge on her baseline health. INR 2.2. I will decrease the warfarin to 4 mg daily. 05/21: residential care officer shows A. fib heart rate 90s to low 100. Metoprolol dose i ncreased to 75 mg twice daily. Patient on Cardizem CD 180 mg twice daily continued. INR 3.1. Decrease warfarin to 3 mg daily.Fasting profile shows triglyceride 246, LDL 48, VLDL 49. Tricor 48 mg started. 05/22: Metoprolol dose increased 200 mg p.o. twice daily. Continue Cardizem. INR high therefore warfarin on hold. Monitor INR daily. 05/23: Heart rate is well controlled on the increased metoprolol dose as well as Cardizem, INR is 2.4 we will recheck in the morning 3. Recent COVID 19 infection: Patient is on intensity of COVID infection. Does not have URI symptoms.Patient not hypoxic. Mild tachypneic but respiratory rate is better. Does not qualify for treatment including steroid remdesivir or baricitinib. Chest x-ray individually reviewed does not show acute change. 4.Hypothyroidism: BNP is normal. TSH is high. 05/19: Free T4 tomorrow 1.16. Patient on levothyroxine 150 mcg daily. I would not increase it as it will further increase RVR. TSH is mildly elevated 4.31 5. RAJESH since admission:Patient admitting creatinine 2.22, improved to 1.51. Her baseline is 0.76 on February 2022. Continue IV fluid. Hold nephrotoxic medications. Patient has documented 3 L of positive fluid balance. 05/21: Creatinine improved to 1.08 patient's baseline. Discontinue IV fluid. 6. Other comorbidities include hypertension, depression: Home medication re conciliation done. We will hold antihypertensive medication for now Patient needs pre-CERT. Continue above medications. DVT: Coumadin Medications at Discharge Home Medications benazepril 10 mg tablet 10 mg PO DAILY 02/15/22 levothyroxine 150 mcg tablet 150 mcg PO DAILY THYROID 02/15/22 trazodone 50 mg tablet 50 mg PO QHS SLEEP 02/15/22 warfarin 4 mg tablet 4 mg PO DAILY AFIB 02/15/22 citalopram 20 mg tablet 20 mg PO DAILY DEPRESSION 05/18/22 furosemide 20 mg tablet 20 mg PO TUTHSA 05/18/22 milk thistle 500 mg capsule 500 mg PO DAILY SUPPLEMENT 05/18/22 quercetin 500 mg capsule 500 mg PO DAILY SUPPLEMENT 05/18/22 cephalexin 500 mg capsule 500 mg PO Q6H 7 days #28 caps 05/24/22 diltiazem HCl 180 mg capsule,extended release 24 hr 180 mg PO BID #0 caps 05/24/22 fenofibrate nanocrystallized 48 mg tablet 48 mg PO DAILY #0 tabs 05/24/22 metoprolol tartrate 100 mg tablet 100 mg PO BID #0 tabs 05/24/22 sennosides 8.6 mg-docusate sodium 50 mg tablet (Stool Softener-Stimulant Laxative) 2 tab PO BID PRN PRN Constipation #0 tabs 05/24/22 Hospital Course Operations - (Left cystoscopy with stent placement) Procedures None Summary of Care Provided Minutes Spent on Discharge: 40 Hospital Course: Per HPI: NITISH ABERNATHYGRACEJOSE, is a 82 F came to ED for multiple complaints.? She had COVID infection, diagnosed positive on 05/09/2022.? For last 10 days she complains of acute on chronic shortness of breath mainly on exertion but has progressed to shortness of breath at rest along with left sided chest pain.? She has been sleeping on [place] for 3 years and has chronic shortness of breath.? She describes chest pain as dull ache, constant with no change with activity, or precipitating, aggravating or relieving factor.? Last 2 days he started having palpitation.? He says that she also has bilateral lower quadrant pain more on the left.? In ED, she was found to be in A. fib with RVR.? She was tachycardic, blood pressure elevated but went down after giving IV metoprolol.? CT abdomen pelvis showed left ureteric nonobstructive calculi and left renal infundibula with mild hydronephrosis.? Urologist consulted.? UA positive for 4+ bacteria, WBC 25?50 cells, RBC 10-25 cells LE 500, nitrite negative.? Patient has leukocytosis and is started on IV ceftriaxone and admitted. Hospital Course: 1.? UTI most likely due to left ureteric calculi and borderline hydronephrosis: Patient is being admitted to PCU.? CT abdomen reviewed with the urologist Dr. Gutierrez.? Patient has 8 mm partially obstructing stone in left proximal ureter with borderline left hydronephrosis.? 4 mm tubular nonobstructing calculi in left lower renal infundibula.? Mild right renal atrophy.? Patient has leukocytosis.? Patient does not look toxic but has low-grade fever 99.7 Fahrenheit.Patient is not hypotensive but blood pressure went down after giving IV metoprolol 5 mg x 2.? Patient has leukocytosis but lactic acid normal.? Liver chemistry pending.? Overall I have very low probability for sepsis.? IV fluid Ringer lactate 1 L ordered.? IV ceftriaxone 1 g daily.? IV fluid normal saline.? Urologist consulted. 05/19: Urologist consult reviewed and discussed with him.? Blood cultures x2 growing gram-negative rods.? Urine culture pending.? Continue IV ceftriaxone.? No fever.? Plan for cystoscopy and left retrograde stent.? Leukocytosis has improved.? Mild hypokalemia, potassium is getting replaced. 05/21: Blood cultures x2 shows gram-negative jeffy E. coli, ESBL negative.? Urine culture is negative however this is likely due to the fact that it was obtained after the first dose of IV antibiotics 05/24/2022: She did get excepted to the correction today, I discussed with her the plan for discharge she expressed understanding of the risk and benefits of going to the correction and would like to go today. I do recommend that they follow her white count, her leukocytosis does not match her symptoms. She has not had any fevers she denies any cough with sputum production she is having regular bowel movements. We will continue with 7 more days of p.o. Keflex on discharge to complete a 14-day course of antibiotics for her bacteremia. The UA was very consistent with a UTI and it is possible that the cultures were taken after she was given antibiotics, but there is no other obvious sign of infection the CT scan on admission did not show anything other than the stone in her left ureter. Chest x-ray was unremarkable, so it is possible that the persistent leukocytosis is reactive if she remains elevated even after she completes antibiotics, this would warrant further investigation 2.? Paroxysmal A. fib RVR: Twelve-lead EKG in ED shows A. fib with RVR with PVCs, nonischemic ST-T changes.? Heart rate 146/min.? Previous EKG on 15 February 2022 shows normal sinus rhythm 67, QTc 433 ms.? I think A. fib with RVR precipitated from infection/UTI.? INR 1.8.? Patient had therapeutic dose of Lovenox in ED.? Warfarin dose increased to 5 mg daily.? Troponin one-time elevated 77.? Cycle troponin. 05/19: Patient has low-grade left-sided chest pain unclear but seems mainly positional/musculoskeletal as troponins were borderline elevated 64, 77 and 77.? Does not seem to be having TX but may be acute myocardial injury from A. fib with RVR.? Recommend outpatient stress test after 2 weeks from discharge on her baseline health.? INR 2.2.? I will decrease the warfarin to 4 mg daily. 05/21: residential care officer shows A. fib heart rate 90s to low 100.? Metoprolol dose increased to 75 mg twice daily.? Patient on Cardizem CD 180 mg twice daily continued.? INR 3.1.? Decrease? warfarin to 3 mg daily.Fasting profile shows triglyceride 246, LDL 48, VLDL 49.? Tricor 48 mg started. 05/22: Metoprolol dose increased 200 mg p.o. twice daily.? Continue Cardizem.? INR high therefore warfarin on hold.? Monitor INR daily. 05/23: Heart rate is well controlled on the increased metoprolol dose as well as Cardizem, INR is 2.4 we will recheck in the morning 05/24/2022: Will discharge on metoprolol at the increased dose as well as Cardizem, and will restart her Coumadin recommend outpatient monitoring 3.? Recent COVID 19 infection: Patient is on intensity of COVID infection.? Does not have URI symptoms.Patient not hypoxic.? Mild tachypneic but respiratory rate is better.? Does not qualify for? treatment including steroid remdesivir or baricitinib.? Chest x-ray individually reviewed does not show acute change. She is outside of quarantine time, COVID test today was negative 4.Hypothyroidism: BNP is normal.? TSH is high. 05/19: Free T4 tomorrow 1.16.? Patient on levothyroxine 150 mcg daily.? I would not increase it as it will further increase RVR.? TSH is mildly elevated 4.31 5.? RAJESH since admission:Patient admitting creatinine 2.22, improved to 1.51.? Her baseline is 0.76 on February 2022.? Continue IV fluid.? Hold nephrotoxic medications.??Patient has documented 3 L of positive fluid balance. 05/21: Creatinine improved to 1.08 patient's baseline.? Discontinue IV fluid. 6.? Other comorbidities include hypertension, depression: Home medication reconciliation done.? We will hold antihypertensive medication for now Weight / BMI Weight Weight: 256 lb 6.362 oz Body Mass Index (BMI) 43.9 ABG / Lab / Microbiology Data Result Diagrams: 05/24/22 06:30 05/24/22 06:30 Laboratory: Laboratory Results - last 24 hr 05/21/22 07:53: Diff Path Review Reviewed 05/24/22 06:30: PT 21.1 H, INR 1.9 05/24/22 06:30: WBC 19.0 H, RBC 4.17 L, Hgb 12.2, Hct 37.5, MCV 89.9, MCH 29.3, MCHC 32.5, RDW Std Deviation 46.9 H, RDW Coeff of Henry 14.4, Plt Count 346, MPV 9.8, Immature Gran % (Auto) 3.500 H, Neut % (Auto) 79.9 H, Lymph % (Auto) 9.6 L, Coryell % (Auto) 6.0, Eos % (Auto) 0.6, Baso % (Auto) 0.4, Absolute Neuts (auto) 15.2 H, Absolute Lymphs (auto) 1.82, Nucleated RBC % 0 05/24/22 06:30: Sodium 137, Potassium 4.5, Chloride 103, Carbon Dioxide 27.0, Anion Gap 7, BUN 21 H, Creatinine 0.92, Estim Creat Clear Calc 40.71, Est GFR (M DRD) Af Amer 75, Est GFR (MDRD) Non-Af 62, BUN/Creatinine Ratio 22.7 H, Glucose 157 H, Calcium 8.4 L Microbiology: Microbiology 05/24/22 14:40 Nasal Secretion SARS-CoV-2 Antigen (Rapid) - Final 05/18/22 10:45 Urine, Clean Catch Urine Culture - Final Culture exhibits no growth. 05/18/22 11:50 Blood Culture (Wb) - Left Hand Blood Culture - Final GNR lactose check embosser 05/18/22 11:38 Blood Culture (Wb) - Anticubital Left Blood Culture - Final Escherichia coli Meaningful Use Info Meaningful Use Diagnoses (Choose all that apply): None applicable Discharge Plan Admission Admit Date/Time: 05/18/22 11:49 Attending Provider: John Eduardo Primary Care Provider: Cory Santacruz Consulting Providers: Shar Gutierrez ; Zenon Muniz Discharge Orders/Prescriptions Prescriptions: New diltiazem HCl 180 mg Capsule,Extended Release 24hr 180 mg PO BID Qty: 0 0RF metoprolol tartrate 100 mg Tablet 100 mg PO BID Qty: 0 0RF sennosides-docusate sodium [Stool Softener-Stimulant Laxat] 8.6-50 mg Tablet 2 tab PO BID PRN PRN (Reason: Constipation) Qty: 0 0RF fenofibrate nanocrystallized 48 mg Tablet 48 mg PO DAILY Qty: 0 0RF cephalexin 500 mg capsule 500 mg PO Q6H 7 Days Qty: 28 0RF Continued trazodone 50 mg tablet 50 mg PO QHS Label Comments: TAKE 1 TABLET BY MOUTH EVERYDAY AT BEDTIME warfarin 4 mg tablet 4 mg PO DAILY levothyroxine 150 mcg tablet 150 mcg PO DAILY Label Comments: TAKE 1 TABLET BY MOUTH ONCE DAILY. TAKE ON EMPTY STOMACH. FOR THYROID. benazepril 10 mg tablet 10 mg PO DAILY Label Comments: TAKE 1 TABLET BY MOUTH EVERY DAY furosemide 20 mg tablet 20 mg PO TUTHSA Label Comments: TAKE 1 TABLET BY MOUTH THREE TIMES A WEEK. milk thistle 500 mg Capsule 500 mg PO DAILY Rx Instructions: give with meal/snack citalopram 20 mg tablet 20 mg PO DAILY Label Comments: TAKE 1 TABLET BY MOUTH EVERY DAY quercetin 500 mg Capsule 500 mg PO DAILY Discontinued metoprolol tartrate 25 mg tablet 12.5 mg PO BID Label Comments: TAKE 1/2 TABLET BY MOUTH TWICE DAILY Referrals / Follow Up: Cory Santacruz MD [Primary Care Provider] - Disposition Disposition (needs filled in before D/C Order can be placed): Shelter Facility Charges/Coding Visit Charges Inpatient E&M: 43495 Disch Hosp >30min
--- NOTE | 2022-05-24 15:57 | CASEMGMT ---
JOSEMANUEL called patient's sister Tessa and left her a message letting her know patient was transferred to [facility] TCU. Lisbet ALVARADO
== END 2022-05-24 15:50 | disposition skilled nursing facility (03) | DRG 660 ==
LOC: ED 11:58 → PCU 12:18
PROVIDERS: Urology; Admitting Provider Internal Medicine; Emergency Provider Emergency Medicine; PCP Family Medicine; Visit Provider Family Medicine
PROC: 0T778DZ Dilation of Left Ureter with Intraluminal Device, Via Natural or Artificial Opening Endoscopic (ICD-10-PCS; principal; 2022-05-19 13:50)
DX: N13.6 Pyonephrosis (principal); R78.81 Bacteremia; I48.20 Chronic atrial fibrillation, unspecified; Z68.41 Body mass index [BMI] 40.0-44.9, adult; N17.9 Acute kidney failure, unspecified; E66.01 Morbid (severe) obesity due to excess calories; I48.0 Paroxysmal atrial fibrillation; E03.9 Hypothyroidism, unspecified; I10 Essential (primary) hypertension; E87.6 Hypokalemia; F32.A Depression, unspecified; Z86.16 Personal history of COVID-19; Z79.01 Long term (current) use of anticoagulants; R77.8 Other specified abnormalities of plasma proteins; Z87.891 Personal history of nicotine dependence; N26.1 Atrophy of kidney (terminal); Z51.5 Encounter for palliative care; I49.3 Ventricular premature depolarization; Z66 Do not resuscitate; Z79.2 Long term (current) use of antibiotics; R79.1 Abnormal coagulation profile; B96.20 Unspecified Escherichia coli [E. coli] as the cause of diseases classified elsewhere; R07.89 Other chest pain
CPT/HCPCS: 36415; 71046; 74176; 76000; 80048; 80061; 80076; 81001; 83605; 83735; 83880; 84100; 84439; 84443; 84484; 85025; 85610; 87040; 87077; 87086; 87186; 87426; 93005; 93306; 97110; 97116; 97162; 97166; 97530; 97535; 97802; 99252; 99285; J7030; J7040; J7120; P9612; Q9957; A4216; C1769; C8929; G0463; J2405

== ENCOUNTER 2022-05-24 16:00 | Inpatient (IN) | payer MEDICARE, SELFPAY ==
[2022-05-24 16:16] VITALS: BP 143/85; PULSE 67; RESP 18; TEMP 36.3; O2SAT 97; BMI 44.6
[2022-05-24 16:45] VITALS: PULSE 85; RESP 18; O2SAT 97
[2022-05-24 18:14] VITALS: BP 143/85; PULSE 67
[2022-05-24] MEDS: Cephalexin 500 MG Capsule PO ×2 (18:14→23:38)
[2022-05-24] MEDS: Metoprolol Tartrate 100 MG Tablet PO (18:14)
[2022-05-24] MEDS: dilTIAZem CD 180 MG Capsule PO (18:14)
[2022-05-24] MEDS: traZODone 50 MG Tablet PO (19:57)
[2022-05-24] MEDS: Nystatin Powder 15gm Bottle 1 APPLIC TOPICAL (19:57)
[2022-05-24] MEDS: Menthol/Lanolin/Calamine/Znox 113 GM Tube 1 APPLIC TOPICAL (19:57)
--- NOTE | 2022-05-24 19:59 | HP.PCM_ITS ---
HPI - General General Date of Admission: 05/24/22 Date of Service: 05/24/22 Chief Complaint: Here for rehabilitation. HPI Narrative 05/18/2022 NITISH MOLINA, is a 82 Female who presents to [facility] Emergency Department with shortness of breath. 05/18/2022 EKG atrial fibrillation with rapid ventricular response with premature ventricular or aberrantly conducted complexes, nonspecific ST&T wave abnormality. 05/09/2022 covid19 infection. Metoprolol IV x 2 for atrial fibrillation with RVR. Diffuse abdominal pain, CT abdomen/pelvis ordered. UA consistent with urinary tract infection, blood cultures sent, urine cu ltures sent, ATB's given for sepsis/UTI. CT shows left ureteral stone. 05/18/2022 Admit to Hospital. LR IV, Ceftriaxone IV, Dr. Gutierrez consult for urinary tract infection/left ureteral stone. Cycle troponin for elevated troponin. Adjust coumadin for atrial fibrillation. 05/18/2022 Echo LVSF normal. EF 55%. Moderate concentric LVH. 05/19/2022 Dr. Gutierrez performed cystoscopy, left stent placement, left retrograde pyelogram. 05/19/2022 Blood cultures x 2 growing gram negative rods, Ceftriaxone continued. NSTEMI secondary to demand ischemia from atrial fibrillation with RVR. Creatinine improved from 2.22 to 1.51, baseline 0.76. 05/20/2022 Heart rate 100 to 110, in atrial fibrillation. Leukocytosis improving. Cardiac stress test 2 weeks after discharge for NSTEMI. 05/21/2022 Blood cultures growing E. Coli, ESBL negative. Adjust warfarin for atrial fibrillation. Creatinine improved to 1.08. 05/22/2022 Continue Ceftriaxone IV for E. Coli bacteremia, urinary tract infection. 05/23/2022 Doing well, needs SNF. Heart rate controlled on Metoprolol, Cardizem. 05/24/2022 Admit to TCU with debility, here for rehabilitation, strengthening, prior to discharge home alone. [facility] Medical History Atrial fibrillation COVID-19 virus infection Depression Hypertension Hypothyroidism Home Medications benazepril 10 mg tablet 10 mg PO DAILY BP 02/15/22 [History Last Taken 05/15/22] levothyroxine 150 mcg tablet 150 mcg PO DAILY THYROID 02/15/22 [History Last Taken 05/15/22] trazodone 50 mg tablet 50 mg PO QHS SLEEP 02/15/22 [History Last Taken 05/16/22] warfarin 4 mg tablet 4 mg PO DAILY AFIB 02/15/22 [History Last Taken 05/16/22] citalopram 20 mg tablet 20 mg PO DAILY DEPRESSION 05/18/22 [History Last Taken 05/15/22] furosemide 20 mg tablet 20 mg PO TUTHSA fluid pill 05/18/22 [History Last Taken 05/04/22] milk thistle 500 mg capsule 500 mg PO DAILY SUPPLEMENT 05/18/22 [History Last Taken 05/04/22] quercetin 500 mg capsule 500 mg PO DAILY SUPPLEMENT 05/18/22 [History Last Taken 05/04/22] cephalexin 500 mg capsule 500 mg PO Q6H uti 05/24/22 [History Last Taken Unknown] diltiazem HCl 180 mg capsule,extended release 24 hr 180 mg PO BID heart 05/24/22 [History Last Taken Unknown] fenofibrate nanocrystallized 48 mg tablet 48 mg PO DAILY supplement 05/24/22 [History Last Taken Unknown] metoprolol tartrate 100 mg tablet 100 mg PO BID heart 05/24/22 [History Last Taken Unknown] sennosides 8.6 mg-docusate sodium 50 mg tablet (Stool Softener-Stimulant Laxative) 2 tab PO BID PRN PRN Constipation #0 tabs 05/24/22 [Rx Last Taken Unknown] Allergy/AdvReac Type Severity Reaction Status Date / Time No Known Allergies Allergy Verified 05/18/22 09:31 Surgical History History of appendectomy History of cholecystectomy Social History (Updated 05/24/22 @ 20:[address] Eleazar Barrett MD) household members: none Smoking Status: Former smoker alcohol intake: never substance use type: does not use ROS Constitutional Constitutional: Denies chills, fever(s) or weight gain ENT HEENT: Denies headache(s), nasal congestion or nasal discharge Cardiovascular Cardiovascular: Denies chest pain or palpitations Respiratory/Chest Respiratory/Chest: Denies cough, excessive phlegm production or shortness of breath with exertion Gastrointestinal Gastrointestinal: Denies abdominal pain, nausea or vomiting Genitourinary Genitourinary: Denies dysuria Musculoskeletal Musculoskeletal: Denies joint pain or joint swelling Integumentary Integumentary: Denies rash or wounds Neurologic Neurologic: Denies focal weakness, numbness or tingling Psychiatric Psychiatric: Denies anxiety, auditory hallucinations, depression, homicidal ideation or suicidal ideation Vital Signs Vital Signs Vital Signs: 05/24/22 16:16 05/24/22 18:14 05/24/22 16:45 Temperature 97.3 F L Temperature Source Temporal Pulse Rate 67 67 85 Pulse Rhythm Irregular Pulse Strength Normal (2+) Respiratory Rate 18 18 Respiratory Effort Normal Respiratory Depth Normal Respiratory Pattern Normal Blood Pressure 143/85 H 143/85 H Blood Pressure Mean 104 Blood Pressure Source Monitor Blood Pressure Position Semi-Fowlers Blood Pressure Location Right Forearm Pulse Ox 97 97 Oxygen Delivery Method Room Air Room Air Weight Weight: 121.619 kg Body Mass Index (BMI) 44.6 Physical Exam Const alert General Appearance: cooperative HEENT normocephalic Eyes PERRL and EOMs intact bilaterally Neck supple, no JVD and no carotid bruits Resp normal respiratory effort, normal air movement and clear to auscultation bilaterally Cardio regular rate and regular rhythm GI normal to inspection, nondistended, normoactive bowel sounds, non-tender and non-distended Extremity normal capillary refill General Extremity: Negative for edema Skin no rashes or lesions noted General Skin Exam: no breakdown Psych affect normal Appearance: appropriate Assessment & Plan Assessment/Plan (1) Debility: (2) Left ureteral calculus: (3) Atrial fibrillation with rapid ventricular response: (4) Elevated troponin I level: (5) Urinary tract infection: (6) Severe sepsis with acute organ dysfunction: (7) Acute prerenal azotemia: (8) Tachypnea: (9) Hypertension: (10) Hypothyroidism: (11) Insomnia: (12) Depression: (13) Edema: PLAN: Plan 82 year old female with below past medical history hospitalized for sepsis/bacteremia secondary to urinary tract infection/left ureteral calculus requiring left ureteral stent placement, complicated by atrial fibrillation with RVR, acute kidney injury, admitted to TCU with debility, here for rehabilitation, strengthening, prior to discharge home alone. * Debility - PT/OT. * Pain - Tylenol 1000mg q6h prn pain (1-10). * Bowel - senna/colace 2 tablets bid, MOM 30ml po x 1 prn. * Adult immunization - Administer pneumonia vaccine, covid19 vaccine, flu vaccine as appropriate. * DVT prophylaxis - Not necessary, already on warfarin. * E. Coli UTI - Keflex 500mg q6h thru 05/31/2022. * Left ureteral stent - Dr. Gutierrez planning stent removal. * Depression - Citalopram 20mg daily, stable chronic longterm use, GDR not recommended. * Atrial fibrillation - Metoprolol 100mg bid, Cardizem 180mg bid, Warfarin 4mg daily, follow INR. * Hyperlipidemia - Fenofibrate 48mg daily. * Edema - Furosemide 20mg daily. * Hypothyroidism - Levothyroxine 150mcg daily. * Hypertension - Metoprolol 100mg bid, Cardizem 180mg bid, Lisinopril 10mg daily. * Skin irritation - Calmoseptine topical bid. * Tinea Corporis - Nystatin powder topical bid. * Insomnia - Trazodone 50mg qhs, stable chronic termite technician use, GDR not recommended.
[2022-05-25] MEDS: Nystatin Powder 15gm Bottle 1 APPLIC TOPICAL ×2 (05:17→20:42)
[2022-05-25] MEDS: Menthol/Lanolin/Calamine/Znox 113 GM Tube 1 APPLIC TOPICAL (05:17)
[2022-05-25 05:18] VITALS: BP 136/89; PULSE 99
[2022-05-25] MEDS: Fenofibrate 48 MG Tablet PO (05:18)
[2022-05-25] MEDS: Levothyroxine 150 MCG Tablet PO (05:18)
[2022-05-25] MEDS: Citalopram 20 MG Tablet PO (05:18)
[2022-05-25] MEDS: dilTIAZem CD 180 MG Capsule PO ×2 (05:18→17:31)
[2022-05-25] MEDS: Metoprolol Tartrate 100 MG Tablet PO ×2 (05:18→17:32)
[2022-05-25] MEDS: Lisinopril 10 MG Tablet PO (05:18)
[2022-05-25] MEDS: Cephalexin 500 MG Capsule PO ×4 (05:18→23:34)
[2022-05-25 05:57] LABS: Absolute Lymphocyte Count 1.77 X10^3/uL (0.83-4.51); Absolute Neutrophil Count 14.8 X10^3/uL (2.0-7.7); Basophil# 0.09 X10^3/uL; Basophil% 0.5 % (0-1); Eosinophil# 0.11 X10^3/uL; Eosinophils% 0.6 % (0-5); Hematocrit 39.6 % (37-47); Hemoglobin 12.8 g/dL (12.0-15.0); Lymphocyte # 1.77 X10^3/ul (0.83-4.51); Lymphocyte % 9.7 % (19-41); Mean Corp Hgb Conc 32.3 g/dL (32-36); Mean Corpuscular Hgb 29.3 pg (27.0-32.0); Mean Corpuscular Volume 90.6 fL (81-99); Monocyte# 1.15 X10^3/uL; Monocyte% 6.3 % (0-10); NRBC Flagged by Analyzer 0 % (0-5); Neutrophil % 81.5 % (47-70); Platelet Count 372 K/mm3 (150-450); RBC Distribution Width CV 14.1 % (11.6-14.6); RBC Distribution Width SD 47.2 fl (35.1-43.9); Red Blood Count 4.37 M/mm3 (4.2-5.4); White Blood Count 18.2 K/mm3 (4.4-11.0)
[2022-05-25 06:52] LABS: Anion Gap 7 (5-15); BUN 19 mg/dL (7-18); BUN/Creat Ratio 19.4 RATIO (10-20); Calcium,Total 8.3 mg/dL (8.5-10.1); Chloride 103 mmol/L (98-107); Creatinine, Serum 0.98 mg/dL (0.55-1.02); EST Glomerular Filtration Rate 58 mL/min (>60); Est Glom Filt Rate - Afr Amer 70 mL/min (>60); Estimated Creatinine Clearance 39.83 ml/min; Glucose 151 mg/dL (74-106); Potassium 4.7 mmol/L (3.5-5.1); Sodium Level 136 mmol/L (136-145)
[2022-05-25] MEDS: Acetaminophen 500 MG Tablet 1000 MG PO ×2 (08:09→20:41)
[2022-05-25] MEDS: Tuberculin,Purif.prot.deriv. 50 TU/ML Vial 0.1 ML ID (10:16)
--- NOTE | 2022-05-25 10:18 | NURSING ---
PER THERAPY,PT CAN Walk WITHOUT THE WALKER BUT MUST STILL CALL FOR HELP AND STAFF MUST BE STAND BY ASSIST.
--- NOTE | 2022-05-25 11:12 | PHA.CONS_ITS ---
TCU RX Drug Regimen Review Subjective: TCU Admission. 82 YOF presented to the ER with shortness of breath. Hospitalized for sepsis/bacteremia secondary to urinary tract infection/left ureteral calculus requiring left ureteral stent placement, complicated by atrial fibrillation with RVR, acute kidney injury. Admitted to TCU with debility for strengthening and rehabilitation. Objective: Allergies No Known Allergies Allergy (Verified 05/18/22 09:31) Current Medications Generic Name Dose Route Start Last Admin Trade Name Freq PRN Reason Stop Dose Admin Acetaminophen 1,000 mg 05/24/22 20:29 05/25/22 08:09 Acetaminophen 500 Mg Tablet PO 1,000 mg Q6H PRN PRN Administration Pain Score 1-10 Calamine/Phenol 1 applic 05/24/22 22:00 05/25/22 05:17 Menthol/Lanolin/Calamine/Znox 113 Gm Tube TOPICAL 1 applic BID HANS Administration Protocol Cephalexin 500 mg 05/24/22 18:00 05/25/22 05:18 Cephalexin 500 Mg Capsule PO 05/31/22 18:01 500 mg Q6 HANS Administration Citalopram Hydrobromide 20 mg 05/25/22 06:00 05/25/22 05:18 Citalopram 20 Mg Tablet PO 20 mg DAILY HANS Administration Diltiazem HCl 180 mg 05/24/22 18:00 05/25/22 05:18 Diltiazem Cd 180 Mg Capsule PO 180 mg BID HANS Administration Fenofibrate 48 mg 05/25/22 06:00 05/25/22 05:18 Fenofibrate 48 Mg Tablet PO 48 mg DAILY HANS Administration Furosemide 20 mg 05/26/22 06:00 Furosemide 20 Mg Tablet PO TuThSa@0600 HANS Levothyroxine Sodium 150 mcg 05/25/22 06:00 05/25/22 05:18 Levothyroxine 150 Mcg Tablet PO 150 mcg DAILY HANS Administration Lisinopril 10 mg 05/25/22 06:00 05/25/22 05:18 Lisinopril 10 Mg Tablet PO 10 mg DAILY HANS Administration Magnesium Hydroxide 30 ml 05/24/22 20:29 Magnesium Hydroxide 30 Ml Udc PO X1 PRN Constipation Metoprolol Tartrate 100 mg 05/24/22 18:00 05/25/22 05:18 Metoprolol Tartrate 100 Mg Tablet PO 100 mg BID HANS Administration Nystatin 1 applic 05/24/22 22:00 05/25/22 05:17 Nystatin Powder 15gm Bottle TOPICAL 1 applic BID [facility] Administration Protocol Senna/Docusate Sodium 2 tablet 05/24/22 16:24 Senna/Docusate Sodium 1 Tablet PO BID PRN PRN Constipation Trazodone HCl 50 mg 05/24/22 22:00 05/24/22 19:57 Trazodone 50 Mg Tablet PO 50 mg QHS HANS Administration Tuberculin PPD 0.1 ml 06/01/22 10:00 Tuberculin,Purif.Prot.Deriv. 50 Tu/Ml Vial ID 06/01/22 10:01 X1 ONE Warfarin Sodium 4 mg 05/24/22 17:00 05/24/22 18:13 Warfarin 4 Mg Tablet PO 4 mg DINNER HANS Administration Problem List (Last Reviewed 05/24/22 @ 20:[address] Eleazar Barrett MD) Edema (Acute) Depression (Acute) Insomnia (Acute) Hypothyroidism (Acute) Hypertension (Chronic) Debility (Acute) Left ureteral calculus (Acute) Atrial fibrillation with rapid ventricular response (Acute) Elevated troponin I level (Acute) Urinary tract infection (Acute) Severe sepsis with acute organ dysfunction (Acute) Acute prerenal azotemia (Acute) Tachypnea (Acute) Vital Signs Temp Pulse Resp BP Pulse Ox O2 Del Method 97.3 F L 99 18 136/89 H 97 Room Air 05/24/22 16:16 05/25/22 05:18 05/24/22 16:45 05/25/22 05:18 05/24/22 16:45 05/24/22 16:45 Oxygen Delivery Method Room Air Weight: 121.619 kg Body Mass Index (BMI) 44.6 Sodium 136 mmol/L (136-145) 05/25/22 05:15 Potassium 4.7 mmol/L (3.5-5.1) 05/25/22 05:15 Chloride 103 mmol/L (98-107) 05/25/22 05:15 Carbon Dioxide 26.0 mmol/L (21.0-32.0) 05/25/22 05:15 Anion Gap 7 (5-15) 05/25/22 05:15 BUN 19 mg/dL (7-18) H 05/25/22 05:15 Creatinine 0.98 mg/dL (0.55-1.02) 05/25/22 05:15 Est GFR (MDRD) Af Amer 70 mL/min (>60) 05/25/22 05:15 Est GFR (MDRD) Non-Af 58 mL/min (>60) L 05/25/22 05:15 BUN/Creatinine Ratio 19.4 RATIO (10-20) 05/25/22 05:15 Glucose 151 mg/dL (74-106) H 05/25/22 05:15 Assessment/Plan: 1. Pain: acetaminophen 1000mg PO Q6H PRN pain 1-10. Resident has had 1 dose for a pain score of 7 in the back. Please continue to monitor for increased pain and PRN usage. 2. Bowel: senna/docusate 2T PO BID PRN constipation and MOM 30mL PO x1 PRN constipation. Last documented bowel movement 05/20. Resident has not had any PRN doses. Please continue to monitor for constipation and PRN usage. 3. E. coli UTI: cephalexin 500mg PO Q6 thru 05/31/22. Please continue to monitor for S/S of infection, diarrhea and renal function (CrCl 61.7mL/min using adjusted body weight). 4. Hypertension/atrial fibrillation: metoprolol tartrate 100mg PO BID, diltiazem CD 180mg PO BID, lisinopril 10mg PO daily and warfarin 4mg PO dinner. Please continue to monitor for S/S of bleeding, hemoglobin (last 12.8g/dL), INR (last 1.9 05/24), HR (last 99), BP (last 136/89), potassium (last 4.7mmol/L), cough and renal function. 5. Hyperlipidemia: fenofibrate 48mg PO daily. Please continue to monitor lipid panel (last 05/19/22) and renal function. 6. Edema: furosemide 20mg PO TuThSa. Please continue to monitor for edema, weight, renal function and potassium. 7. Hypothyroidism: levothyroxine 150mcg PO daily. Please continue to monitor TSH (last 05/19/22) and for S/S of hypo/hyperthyroidism. Assessment/Plan for indications treated with psychotropic medications: 1. Depression: citalopram 20mg PO daily. Please see physician note regarding GDR. Please continue to monitor for suicidal ideation (black box warning), falls/fractures (BEERs medication) and sodium (last 136mmol/L). 2. Insomnia: trazodone 50mg PO QHS. Please see physician note regarding GDR. Please continue to monitor for suicidal ideation (black box warning) and excessive drowsiness. Medical chart and medication regimen reviewed. The following medication irregularities or issues were identified: None Date of Note:: 05/25/22
--- NOTE | 2022-05-25 11:44 | CASEMGMT ---
Social Work Met with patient to complete initial assessment. Introduced self and role. Verified contacts. Pt is having sister bring in copy of advanced directives. Discussed code status and MOLST form. Pt confirms DNR-CC. MOLST placed in Dr folder. Educated to [employer] [place] with [employer] 05/27 and to expect LCD issued. Pt states she is ready to go home. SW offered to set DC date for 05/30, as insurance would issue it. Pt agreeable. SW educated if things change, then the review to insurance can still be submitted without a DC date. Pt agreeable. Pt will return home alone and denied DME or HHC/OP therapy needs. SW to continue to follow. Plan: EDC 05/30, home alone with no needs JUSTINO Villalba CAST [employer] DRAIN PIPE L[employer]ER
--- NOTE | 2022-05-25 13:20 | NURSING ---
Cook Helper Preserves Note; Activity Asset: mile Worthy is independent in her choice of daily activities. Zaynab stated she has her tablet, smartphone and word puzzle books and she is fine with those at this time. I will stop in with the daily chronical and do extra social visits.
[2022-05-25 14:07] VITALS: BP 107/71; PULSE 73; RESP 16; TEMP 36.2; O2SAT 97
--- NOTE | 2022-05-25 15:05 | NURSING ---
PT STATED TO THIS NURSE SHE WAS TO HAVE A PROCEDURE OF A KIDNEY STONE BLAST BY TOMORROW 05/26/22. THIS NURSE CALLED OFFICE AND LEFT MESSAGE DUE TO OFFICE WAS CLOSED TO CALL AND LET US KNOW. ALSO CALLED SURGERY AND THEY STATED THERE WERE NO SCHEDULED SURGERIES WITH ON 05/26/22. UPDATED PT AND FAMILY. PT ALSO ASKING FOR COVID BOOSTER,CRISTIANO SHERWOOD AWARE. RN UPDATED AND AWARE.
--- NOTE | 2022-05-25 15:53 | CHAPLAIN ---
Type of Pastoral Visit ___ Initial Visit _x__ Follow-up Visit ___ On-call Visit ___ General Patient Visit ___ Spiritual Assessment ___ Family Conference ___ Bereavement ___ Rapid Response ___ Code Blue ___ Other (describe below) Pastoral Care Referral From _x__ Patient ___ Family ___ Nurse ___ Physician ___ Plant Reliability Engineer ___ Broommaking Supervisor ___ Other (describe below) Sacrament/Intervention _x__ Active listening ___ Anointing ___ Religion ___ Bereavement ___ Communion _x__ Dianna exploration ___ _x__ Life review _x__ Prayer ___ Reconciliation ___ Sacrament of Sick _x__ Supportive presence ___ Wedding ___ Other (describe below) Pastoral Comments patient was seen earlier in PCU and remembers this member of technical staff; pt welcomes support; pt had several visitors already today and expresses being tired so visit is kept to reasonable length; pt welcomes time to talk and gives assurances of good support from family, bahai friends, and her dianna in God; pt welcomes prayer
[2022-05-25 17:32] VITALS: BP 107/71; PULSE 73
[2022-05-25] MEDS: traZODone 50 MG Tablet PO (20:41)
[2022-05-25 20:45] VITALS: PULSE 96; RESP 16; O2SAT 97
[2022-05-26 05:34] LABS: Absolute Lymphocyte Count 1.85 X10^3/uL (0.83-4.51); Absolute Neutrophil Count 12.3 X10^3/uL (2.0-7.7); Basophil# 0.09 X10^3/uL; Basophil% 0.6 % (0-1); Eosinophil# 0.13 X10^3/uL; Eosinophils% 0.8 % (0-5); Hematocrit 39.2 % (37-47); Hemoglobin 12.7 g/dL (12.0-15.0); Lymphocyte # 1.85 X10^3/ul (0.83-4.51); Lymphocyte % 11.8 % (19-41); Mean Corp Hgb Conc 32.4 g/dL (32-36); Mean Corpuscular Hgb 29.7 pg (27.0-32.0); Mean Corpuscular Volume 91.8 fL (81-99); Mean Platelet Vol. 9.6 fl (6.2-12.0); Monocyte# 1.14 X10^3/uL; Monocyte% 7.3 % (0-10); NRBC Flagged by Analyzer 0 % (0-5); Neutrophil # 12.27 X10^3/uL (2.7-7.7); Neutrophil % 78.5 % (47-70); Platelet Count 362 K/mm3 (150-450); RBC Distribution Width CV 14.3 % (11.6-14.6); RBC Distribution Width SD 47.6 fl (35.1-43.9); Red Blood Count 4.27 M/mm3 (4.2-5.4); White Blood Count 15.6 K/mm3 (4.4-11.0)
[2022-05-26] MEDS: Fenofibrate 48 MG Tablet PO (05:39)
[2022-05-26] MEDS: Lisinopril 10 MG Tablet PO (05:39)
[2022-05-26] MEDS: dilTIAZem CD 180 MG Capsule PO ×2 (05:39→17:37)
[2022-05-26 05:40] VITALS: BP 131/91; PULSE 87
[2022-05-26] MEDS: Furosemide 20 MG Tablet PO (05:40)
[2022-05-26] MEDS: Levothyroxine 150 MCG Tablet PO (05:40)
[2022-05-26] MEDS: Cephalexin 500 MG Capsule PO ×4 (05:40→23:10)
[2022-05-26] MEDS: Citalopram 20 MG Tablet PO (05:40)
[2022-05-26] MEDS: Metoprolol Tartrate 100 MG Tablet PO ×2 (05:40→17:37)
[2022-05-26 05:43] LABS: Prothrombin Time (Protime)PT. 22.5 SECONDS (11.7-14.9)
[2022-05-26] MEDS: Menthol/Lanolin/Calamine/Znox 113 GM Tube 1 APPLIC TOPICAL ×2 (05:43→20:39)
[2022-05-26] MEDS: Nystatin Powder 15gm Bottle 1 APPLIC TOPICAL ×2 (05:45→17:39)
[2022-05-26] MEDS: Pneumococcal Vaccine 20 Valent 0.5 ML Syringe IM (09:19)
[2022-05-26 14:33] VITALS: BP 126/69; PULSE 62; RESP 18; TEMP 36.3; O2SAT 95
--- NOTE | 2022-05-26 15:49 | CASEMGMT ---
Social Work Insurance issued LCD 05/28, DC 05/29. Spoke with pt and sister Aurelia, present in room. Pt is agreeable to DC. Reviewed OP vs HHC therapy or DME needs. Pt agreed to have OP PT and requesting [facility]. No DME needs. Sister to transport. Plan: DC home alone 05/29, [facility] PT Sivan Shay, HOTEL DIRECTOR HEARING SCREENER
[2022-05-26 17:37] VITALS: BP 152/80; PULSE 61
--- NOTE | 2022-05-26 19:14 | DS.PCM_ITS ---
Providers Date of Admission: 05/24/22 Primary Care Physician: Dr. Cory Santacruz MD Reason For Visit: UTI, AFIB RVR Diagnosis Discharge Diagnosis (1) Debility: Status: Acute Code(s): R53.81 - Other malaise (2) Left ureteral calculus: Status: Acute Code(s): N20.1 - Calculus of ureter (3) Atrial fibrillation with rapid ventricular response: Status: Acute Code(s): I48.91 - Unspecified atrial fibrillation (4) Elevated troponin I level: Status: Acute Code(s): R77.8 - Other specified abnormalities of plasma proteins (5) Urinary tract infection: Status: Acute Code(s): N39.0 - Urinary tract infection, site not specified (6) Severe sepsis with acute organ dysfunction: Status: Acute Code(s): A41.9 - Sepsis, unspecified organism; R65.20 - Severe sepsis without septic shock (7) Acute prerenal azotemia: Status: Acute Code(s): N19 - Unspecified kidney failure (8) Tachypnea: Status: Acute Code(s): R06.82 - Tachypnea, not elsewhere classified (9) Hypertension: Status: Chronic Code(s): I10 - Essential (primary) hypertension (10) Hypothyroidism: Status: Acute Code(s): E03.9 - Hypothyroidism, unspecified (11) Insomnia: Status: Acute Code(s): G47.00 - Insomnia, unspecified (12) Depression: Status: Acute Code(s): F32.A - Depression, unspecified (13) Edema: Status: Acute Code(s): R60.9 - Edema, unspecified Plan 82 year old female with below past medical history hospitalized for sepsis/bacteremia secondary to urinary tract infection/left ureteral calculus requiring left ureteral stent placement, complicated by atrial fibrillation with RVR, acute kidney injury, admitted to TCU with debility, here for r ehabilitation, strengthening, prior to discharge home alone. * Debility - PT/OT. * Pain - Tylenol 1000mg q6h prn pain (1-10). * Bowel - senna/colace 2 tablets bid, MOM 30ml po x 1 prn. * Adult immunization - Administer pneumonia vaccine, covid19 vaccine, flu vaccine as appropriate. * DVT prophylaxis - Not necessary, already on warfarin. * E. Coli UTI - Keflex 500mg q6h thru 05/31/2022. * Left ureteral stent - Dr. Gutierrez planning stent removal. * Depression - Citalopram 20mg daily, stable chronic salvage determiner use, GDR not recommended. * Atrial fibrillation - Metoprolol 100mg bid, Cardizem 180mg bid, Warfarin 4mg daily, follow INR. * Hyperlipidemia - Fenofibrate 48mg daily. * Edema - Furosemide 20mg daily. * Hypothyroidism - Levothyroxine 150mcg daily. * Hypertension - Metoprolol 100mg bid, Cardizem 180mg bid, Lisinopril 10mg daily. * Skin irritation - Calmoseptine topical bid. * Tinea Corporis - Nystatin powder topical bid. * Insomnia - Trazodone 50mg qhs, stable chronic salvage determiner use, GDR not recommend ed. Medications at Discharge Home Medications benazepril 10 mg tablet 10 mg PO DAILY BP 02/15/22 levothyroxine 150 mcg tablet 150 mcg PO DAILY THYROID 02/15/22 trazodone 50 mg tablet 50 mg PO QHS SLEEP 02/15/22 warfarin 4 mg tablet 4 mg PO DAILY AFIB 02/15/22 citalopram 20 mg tablet 20 mg PO DAILY DEPRESSION 05/18/22 furosemide 20 mg tablet 20 mg PO TUTHSA fluid pill 05/18/22 milk thistle 500 mg capsule 500 mg PO DAILY SUPPLEMENT 05/18/22 quercetin 500 mg capsule 500 mg PO DAILY SUPPLEMENT 05/18/22 fenofibrate nanocrystallized 48 mg tablet 48 mg PO DAILY supplement 05/24/22 acetaminophen 500 mg tablet 1,000 mg PO Q6H PRN PRN Pain Score 1-10 #0 tabs 05/26/22 diltiazem HCl 180 mg capsule,extended release 24 hr 180 mg PO BID 30 days #60 caps 05/26/22 metoprolol tartrate 100 mg tablet 100 mg PO BID 30 days #60 tabs 05/26/22 Hospital Course Operations None and - (Left ureteral stent.) Procedures None Summary of Care Provided Minutes Spent on Discharge: 35 Hospital Course: 82 year old female with below past medical history hospitalized for sepsis/marcial teremia secondary to urinary tract infection/left ureteral calculus requiring left ureteral stent placement, complicated by atrial fibrillation with RVR, acute kidney injury, admitted to TCU with debility, here for rehabilitation, strengthening, prior to discharge home alone. Discharge home alone 05/29/2022, [facility]. Physical Exam Const alert General Appearance: cooperative HEENT normocephalic Eyes PERRL and EOMs intact bilaterally Neck supple, no JVD and no carotid bruits Resp normal respiratory effort, normal air movement and clear to auscultation bilaterally Cardio regular rate and regular rhythm GI normal to inspection, nondistended, normoactive bowel sounds, non-tender and non-distended Extremity normal capillary refill General Extremity: Negative for edema Skin no rashes or lesions noted General Skin Exam: no breakdown Psych affect normal Appearance: appropriate Weight / BMI Weight Weight: 121.619 kg Body Mass Index (BMI) 44.6 ABG / Lab / Microbiology Data Result Diagrams: 05/26/22 05:10 05/25/22 05:15 Laboratory: Laboratory Results - last 24 hr 05/26/22 05:10: WBC 15.6 H, RBC 4.27, Hgb 12.7, Hct 39.2, MCV 91.8, MCH 29.7, MCHC 32.4, RDW Std Deviation 47.6 H, RDW Coeff of Henry 14.3, Plt Count 362, MPV 9.6, Immature Gran % (Auto) 1.000 H, Neut % (Auto) 78.5 H, Lymph % (Auto) 11.8 L , Taliaferro % (Auto) 7.3, Eos % (Auto) 0.8, Baso % (Auto) 0.6, Absolute Neuts (auto) 12.3 H, Absolute Lymphs (auto) 1.85, Nucleated RBC % 0 05/26/22 05:10: PT 22.5 H, INR 2.0 Microbiology: Microbiology 05/26/22 06:55 Nasal Secretion SARS-CoV-2 Antigen (Rapid) - Final D/C Instructions Discharge Diet: No restrictions Discharge Activity: Return to Normal Activity, May Shower and Use Walker Weight Bearing Status: Weight bearing as tolerated Call your doctor if you observe: Fever of 101 or Higher, Inability to urinate, Inability to have a bowel movement, Shortness of breath, Dizziness, Fainting spells, Swelling in the ankles, Chest pain and Uncontrolled pain Additional Instructions: Discharge home alone 05/29/2022, [facility]. Please Follow Up With: Shar Gutierrez MD When: 1 week. Meaningful Use Info Meaningful Use Diagnoses (Choose all that apply): None applicable Discharge Plan Admission Admit Date/Time: 05/24/22 16:00 Primary Reason for Your Visit: Debility. Attending Provider: Eleazar Barrett Chi Primary Care Provider: Cory Santacruz Instructions Additional Instructions / Restrictions: Discharge home alone 05/29/2022, [facility]. Discharge Orders/Prescriptions Prescriptions: New diltiazem HCl 180 mg Capsule,Extended Release 24hr 180 mg PO BID 30 Days Qty: 60 0RF metoprolol tartrate 100 mg Tablet 100 mg PO BID 30 Days Qty: 60 0RF acetaminophen 500 mg Tablet 1,000 mg PO Q6H PRN PRN (Reason: Pain Score 1-10) Qty: 0 0RF Continued trazodone 50 mg tablet 50 mg PO QHS Label Comments: TAKE 1 TABLET BY MOUTH EVERYDAY AT BEDTIME warfarin 4 mg tablet 4 mg PO DAILY levothyroxine 150 mcg tablet 150 mcg PO DAILY Label Comments: TAKE 1 TABLET BY MOUTH ONCE DAILY. TAKE ON EMPTY STOMACH. FOR THYROID. benazepril 10 mg tablet 10 mg PO DAILY Label Comments: TAKE 1 TABLET BY MOUTH EVERY DAY furosemide 20 mg tablet 20 mg PO TUTHSA Label Comments: TAKE 1 TABLET BY MOUTH THREE TIMES A WEEK. milk thistle 500 mg Capsule 500 mg PO DAILY Rx Instructions: give with meal/snack citalopram 20 mg tablet 20 mg PO DAILY Label Comments: TAKE 1 TABLET BY MOUTH EVERY DAY quercetin 500 mg Capsule 500 mg PO DAILY fenofibrate nanocrystallized 48 mg tablet 48 mg PO DAILY Discontinued sennosides-docusate sodium [Stool Softener-Stimulant Laxat] 8.6-50 mg Tablet 2 tab PO BID PRN PRN (Reason: Constipation) Qty: 0 0RF diltiazem HCl 180 mg capsule,extended release 24hr 180 mg PO BID metoprolol tartrate 100 mg tablet 100 mg PO BID cephalexin 500 mg capsule 500 mg PO Q6H Referrals / Follow Up: Cory Santacruz MD [Primary Care Provider] - Disposition Disposition (needs filled in before D/C Order can be placed): Home, Self Care
[2022-05-26] MEDS: traZODone 50 MG Tablet PO (20:36)
[2022-05-27] MEDS: Menthol/Lanolin/Calamine/Znox 113 GM Tube 1 APPLIC TOPICAL (05:10)
[2022-05-27] MEDS: Nystatin Powder 15gm Bottle 1 APPLIC TOPICAL (05:11)
[2022-05-27] MEDS: dilTIAZem CD 180 MG Capsule PO ×2 (05:11→17:45)
[2022-05-27] MEDS: Fenofibrate 48 MG Tablet PO (05:11)
[2022-05-27] MEDS: Levothyroxine 150 MCG Tablet PO (05:11)
[2022-05-27] MEDS: Citalopram 20 MG Tablet PO (05:11)
[2022-05-27] MEDS: Lisinopril 10 MG Tablet PO (05:11)
[2022-05-27 05:12] VITALS: BP 186/75; PULSE 64
[2022-05-27] MEDS: Metoprolol Tartrate 100 MG Tablet PO ×2 (05:12→17:44)
[2022-05-27] MEDS: Cephalexin 500 MG Capsule PO ×4 (05:13→22:25)
--- NOTE | 2022-05-27 09:33 | NURSING ---
MIREYA FROM OFFICE CALLED AND STATED PT PROCEDURE WILL BE ON May AND THAT THEY HAVE BEEN TRYING TO GET IN TOUCH WITH PT AND THE PT NEEDS TO CALL THE OFFICE ON MONDAY . PT IS BEING D/C ON 05/29/22 AND THIS NURSE STATED TO THE PT TO CALL THE OFFICE ON MONDAY. THIS NURSE ALSO CALLED PT SISTER AND GAVE HER ALL THE INFORMATION. SISTER THANKED THIS NURSE.
[2022-05-27 14:29] VITALS: BP 137/57; PULSE 54; RESP 16; TEMP 36.6; O2SAT 95
[2022-05-27 17:40] VITALS: PULSE 62
[2022-05-27 17:44] VITALS: BP 137/57; PULSE 62
[2022-05-27] MEDS: traZODone 50 MG Tablet PO (21:03)
[2022-05-27 21:53] VITALS: RESP 16
[2022-05-28] MEDS: Lisinopril 10 MG Tablet PO (05:06)
[2022-05-28] MEDS: Levothyroxine 150 MCG Tablet PO (05:06)
[2022-05-28] MEDS: Furosemide 20 MG Tablet PO (05:06)
[2022-05-28] MEDS: Fenofibrate 48 MG Tablet PO (05:06)
[2022-05-28] MEDS: Cephalexin 500 MG Capsule PO ×4 (05:06→21:20)
[2022-05-28] MEDS: Citalopram 20 MG Tablet PO (05:06)
[2022-05-28] MEDS: dilTIAZem CD 180 MG Capsule PO ×2 (05:06→16:56)
[2022-05-28 05:07] VITALS: BP 159/67; PULSE 60
[2022-05-28] MEDS: Metoprolol Tartrate 100 MG Tablet PO ×2 (05:07→16:56)
[2022-05-28] MEDS: Nystatin Powder 15gm Bottle 1 APPLIC TOPICAL ×2 (05:15→16:59)
[2022-05-28 14:41] VITALS: BP 118/53; PULSE 57; RESP 16; TEMP 36.2; O2SAT 96
[2022-05-28] MEDS: Acetaminophen 500 MG Tablet 1000 MG PO (16:55)
[2022-05-28 16:56] VITALS: BP 157/74; PULSE 62
[2022-05-28] MEDS: Menthol/Lanolin/Calamine/Znox 113 GM Tube 1 APPLIC TOPICAL (16:58)
[2022-05-28] MEDS: traZODone 50 MG Tablet PO (21:20)
[2022-05-28 21:28] VITALS: PULSE 80; RESP 16; O2SAT 96
[2022-05-29] MEDS: Acetaminophen 500 MG Tablet 1000 MG PO (05:50)
[2022-05-29 05:51] VITALS: BP 131/62; PULSE 86
[2022-05-29] MEDS: dilTIAZem CD 180 MG Capsule PO (05:51)
[2022-05-29] MEDS: Fenofibrate 48 MG Tablet PO (05:51)
[2022-05-29] MEDS: Metoprolol Tartrate 100 MG Tablet PO (05:51)
[2022-05-29] MEDS: Lisinopril 10 MG Tablet PO (05:51)
[2022-05-29] MEDS: Citalopram 20 MG Tablet PO (05:51)
[2022-05-29] MEDS: Levothyroxine 150 MCG Tablet PO (05:51)
[2022-05-29] MEDS: Cephalexin 500 MG Capsule PO ×2 (05:58→11:45)
[2022-05-29] MEDS: Nystatin Powder 15gm Bottle 1 APPLIC TOPICAL (06:02)
[2022-05-29] MEDS: Menthol/Lanolin/Calamine/Znox 113 GM Tube 1 APPLIC TOPICAL (06:03)
[2022-05-29 10:55] VITALS: PULSE 88; RESP 18
--- NOTE | 2022-05-30 09:07 | NURSING ---
Skills Instructor Note; MDS for 05/29/2022 compete
--- NOTE | 2022-06-06 10:03 | MDS.RN ---
Information for the mds was obtained from review of the clinical record, interview of resident, staff, and direct observation of resident's care.
== END 2022-05-29 12:05 | disposition home or self-care (01) | DRG 689 ==
PROVIDERS: Admitting Provider Family Medicine Geriatric Medicine; PCP Family Medicine; Referring Provider Family Medicine Geriatric Medicine; Visit Provider Family Medicine Geriatric Medicine
DX: N39.0 Urinary tract infection, site not specified (principal); I21.A1 Myocardial infarction type 2; N20.1 Calculus of ureter; I48.91 Unspecified atrial fibrillation; B35.4 Tinea corporis; B96.20 Unspecified Escherichia coli [E. coli] as the cause of diseases classified elsewhere; E03.9 Hypothyroidism, unspecified; I10 Essential (primary) hypertension; F32.A Depression, unspecified; Z86.16 Personal history of COVID-19; Z87.891 Personal history of nicotine dependence; Z79.01 Long term (current) use of anticoagulants; Z79.899 Other long term (current) drug therapy; Z79.890 Hormone replacement therapy; Z23 Encounter for immunization
CPT/HCPCS: 0124A; 36415; 80048; 85025; 85610; 87811; 90677; 91312; 97110; 97116; 97162; 97166; 97530; 97535; 97802; G0009

== ENCOUNTER → 2022-07-19 | Outpatient (CLI) | payer MEDICARE, SELFPAY | END | disposition home or self-care (01) | PROVIDERS: PCP Family Medicine; Visit Provider Urology | DX: N20.0 Calculus of kidney (principal) | CPT/HCPCS: 87077; 87086; 87088; 87186 ==

== ENCOUNTER → 2022-08-17 | Outpatient (CLI) | payer MEDICARE, SELFPAY | END | disposition home or self-care (01) | LOC: LABSPEC 10:02 | PROVIDERS: PCP Family Medicine; Referring Provider Urology; Visit Provider Urology | DX: R31.29 Other microscopic hematuria (principal); N39.0 Urinary tract infection, site not specified | CPT/HCPCS: 87077; 87086; 87088; 87186 ==